=== PATIENT | female | born 1995 | race Caucasian/White ===

== ENCOUNTER → 2020-01-19 15:30 | Outpatient (BNVA) | payer SELFPAY | PROVIDERS: Visit Provider Nurse Practitioner Family | DX: R53.83 Other fatigue (principal); R63.5 Abnormal weight gain | CPT/HCPCS: 80048; 84443 ==

== ENCOUNTER 2020-06-03 18:11 | Emergency (ER) | payer MEDICAID, SELFPAY ==
[2020-06-03 18:25] VITALS: BP 125/63; PULSE 79; RESP 18; TEMP 36.8; O2SAT 100; BMI 29.2
[2020-06-03 19:37] LABS: Basophils % 0.4 %; Eosinophils # 0.1 10^3/uL (0.0-0.8); Eosinophils % 0.8 %; Hematocrit 40.8 % (37.0-47.0); Hemoglobin 13.7 g/dL (11.5-15.3); Lymphocytes # 2.4 10^3/uL (0.8-4.8); Mean Corpuscular HGB Conc 33.6 g/dL (30.0-36.0); Mean Corpuscular Hemoglobin 31.6 pg (28.0-34.0); Mean Platelet Volume 9.5 fL (7.4-10.4); Monocytes # 0.4 10^3/uL (0.2-0.9); Monocytes % 5.3 %; Neutrophils # 4.54 10^3/uL (1.8-7.7); Neutrophils % 61.4 %; Nucleated Red Blood Cells % 0 %; Platelet Count 217 10^3/cmm (130-400); Red Blood Count 4.34 10^6/uL (4.1-5.3); Red Cell Distribution Width 11.6 % (12.1-15.1); White Blood Count 7.4 10^3/uL (4.0-10.0)
[2020-06-03 19:48] LABS: HCG, Serum Qual Positive (Negative)
[2020-06-03 19:54] LABS: Alanine Aminotransferase 28 U/L (0-33); Albumin Level 4.4 g/dL (3.5-5.2); Alkaline Phosphatase 67 IU/L (35-105); Anion Gap 13.9 (5-19); Aspartate Amino Transferase 26 U/L (0-32); Blood Urea Nitrogen 8 mg/dL (6-20); Calcium 9.8 mg/dL (8.5-10.5); Carbon Dioxide 25 mmol/L (22-29); Chloride 103 mmol/L (98-107); Globulin 3.2 g/dL (1.3-4.6); Glucose 89 mg/dL (65-115); Osmolality Calculated 281 mOsm/kg (285-295); Potassium 3.9 mmol/L (3.5-5.1); Sodium 138 mmol/L (136-145); Total Bilirubin 0.3 mg/dL (0.15-1.2); Total Protein 7.6 g/dL (6.6-8.7)
--- NOTE | 2020-06-03 23:18 | W.ED.NAVMDI ---
HPI - Nausea/Vomiting/Diarrhea General: Chief complaint: Nausea/Vomiting/Diarrhea Stated complaint: got sick/doc x ray consultant said come in Time Seen by Provider: 06/03/20 23:00 History of Present Illness: HPI Narrative: Patient is in first trimester of and comes in with complaints of nausea and vomiting and abdominal discomfort. Patient appears mildly unwell. Patient appears in no acute distress. Associated nausea: Yes Associated symtoms: Reports nausea Review of Systems General: Reports: 10 or more systems reviewed and unremarkable except in HPI and below GI: Reports: nausea and vomiting PFS ED PFSH: Medical History (Updated 06/03/20 @ 23:41 by TODD Aguirre) Depression Surgical History (Updated 01/19/20 @ 15:10 by TODD Erazo) Hx of adenoidectomy Hx of tonsillectomy Family History (Updated 01/19/20 @ 15:12 by TODD Erazo) Father Family history of premature coronary artery disease Grandmother Family history of premature coronary artery disease Hypertension Mother Hypertension Denies family history of Psychiatric illness Suicide Bleeding disorder Lung disease Stroke Social History (Updated 01/19/20 @ 14:57 by Agueda Pope LPN) Smoking and tobacco status: never smoked Second hand smoke exposure: Yes Female Reproductive History: Date of last menstrual period: 01/23/20 Physical Exam Const: COMMON NORMALS: no acute distress and patient oriented x3 GENERAL APPEARANCE: cooperative HENMT: COMMON NORMALS: normocephalic, TM's normal bilaterally and Normal external nose present HEAD & SCALP: normal to inspection and normocephalic NOSE: Normal external nose present TYMPANIC MEMBRANE: TM's normal bilaterally MOUTH: Normal oral and palatal mucosa present THROAT: posterior oropharynx normal Eye: GENERAL EYE: appearance normal, both eyes and all related structures Neck/C-Spine: COMMON NORMALS: full ROM Lymph: LYMPHATIC: no lymphadenopathy noted Chest: COMMONS NORMALS: normal inspection of the chest Resp: COMMON NORMALS: normal respiratory effort EFFORT & INSPECTION: Yes able to speak in complete sentences Cardio: COMMON NORMALS: regular rate and regular rhythm RATE: regular rate RHYTHM: regular rhythm GI: COMMON NORMALS: Soft to palpation PALPATION: Yes Soft to palpation and Yes Tenderness to palpation present (GI) (mid epigastric) : COMMON NORMALS: Yes no CVA tenderness BLADDER/KIDNEY EXAM: Yes no CVA tenderness Back/Pelvis: COMMON NORMALS: no CVA tenderness and thoracic and lumbar spine normal to inspection Extremity: COMMON NORMALS: normal to inspection Neuro: COMMON NORMALS: patient oriented x3 and moves all extremities Psych: COMMON NORMALS: mental status grossly normal and cooperative Skin: COMMON NORMALS: no rashes or lesions noted GENERAL SKIN EXAM: no rashes or lesions noted Course Vital Signs: Vital signs: Vital Signs Temperature 98.2 F 06/03/20 18:25 Pulse Rate 79 06/03/20 18:25 Respiratory Rate 18 06/03/20 18:25 Blood Pressure 125/63 06/03/20 18:25 Pulse Oximetry 100 06/03/20 18:25 MDM - Nausea/Vomiting/Diarrhea MDM Narrative: Medical decision making narrative: Patient comes in today with complaints of nausea and vomiting and some midepigastric pain. Respirations were even lungs were clear to auscultation. Abdomen was soft with some midepigastric tenderness. Differential diagnosis includes but not limited to hyperemesis gravidarum, GERD, gallbladder disease. Laboratory values were normal. Urinalysis was clear. Suspect patient either has some mild related nausea and vomiting or GERD. Patient was treated in the emergency room with ondansetron and a dose of GI cocktail. Patient was released to home with ondansetron and recommended to follow-up with primary care. Patient reported understanding. Lab Data: Labs: Lab Results 06/03/20 06/03/20 06/03/20 Range/Units 19:24 19:24 19:24 WBC 7.4 (4.0-10.0) 10^3/ uL RBC 4.34 (4.1-5.3) 10^6/u L Hgb 13.7 (11.5-15.3) g/dL Hct 40.8 (37.0-47.0) % MCV 94.0 (81-99) fL MCH 31.6 (28.0-34.0) pg MCHC 33.6 (30.0-36.0) g/dL RDW 11.6 L (12.1-15.1) % Plt Count 217 (130-400) 10^3/c mm MPV 9.5 (7.4-10.4) fL Neut % (Auto) 61.4 % Lymph % (Auto) 32.0 % Sterling % (Auto) 5.3 % Eos % (Auto) 0.8 % Baso % (Auto) 0.4 % Neut # (Auto) 4.54 (1.8-7.7) 10^3/u L Lymph # (Auto) 2.4 (0.8-4.8) 10^3/u L Sterling # (Auto) 0.4 (0.2-0.9) 10^3/u L Eos # (Auto) 0.1 (0.0-0.8) 10^3/u L Baso # (Auto) 0.0 (0.0-0.1) 10^3/u L Nucleated RBC % (a uto) 0 % Nucleated RBCs # 0.0 /100WBC Sodium 138 (136-145) mmol/L Potassium 3.9 (3.5-5.1) mmol/L Chloride 103 (98-107) mmol/L Carbon Dioxide 25 (22-29) mmol/L Anion Gap 13.9 (5-19) BUN 8 (6-20) mg/dL Creatinine 0.7 (0.5-0.9) mg/dL GFR Calculation 102.0 (90-130) mL/min Glucose 89 (65-115) mg/dL Calculated Osmolal ity 281 L (285-295) mOsm/k g Calcium 9.8 (8.5-10.5) mg/dL Total Bilirubin 0.3 (0.15-1.2) mg/dL AST 26 (0-32) U/L ALT 28 (0-33) U/L Alkaline Phosphata se 67 (35-105) IU/L Total Protein 7.6 (6.6-8.7) g/dL Albumin 4.4 (3.5-5.2) g/dL Globulin 3.2 (1.3-4.6) g/dL HCG, Qual Positive H (Negative) Urine Color (Yellow) Urine Appearance (CLEAR) Urine pH (5-7) Ur Specific Gravit y (1.005-1.030) Urine Protein (Negative) Urine Glucose (UA) (Normal) Urine Ketones (Negative) Urine Blood (Negative) Urine Nitrate (Negative) Urine Bilirubin (NEGATIVE) Urine Urobilinogen (Negative) mg/dL Ur Leukocyte Shawna ase (Negative) 06/03/20 06/03/20 Range/Units 23:16 23:16 WBC (4.0-10.0) 10^3/ uL RBC (4.1-5.3) 10^6/u L Hgb (11.5-15.3) g/dL Hct (37.0-47.0) % MCV (81-99) fL MCH (28.0-34.0) pg MCHC (30.0-36.0) g/dL RDW (12.1-15.1) % Plt Count (130-400) 10^3/c mm MPV (7.4-10.4) fL Neut % (Auto) % Lymph % (Auto) % Sterling % (Auto) % Eos % (Auto) % Baso % (Auto) % Neut # (Auto) (1.8-7.7) 10^3/u L Lymph # (Auto) (0.8-4.8) 10^3/u L Sterling # (Auto) (0.2-0.9) 10^3/u L Eos # (Auto) (0.0-0.8) 10^3/u L Baso # (Auto) (0.0-0.1) 10^3/u L Nucleated RBC % (a uto) % Nucleated RBCs # /100WBC Sodium (136-145) mmol/L Potassium (3.5-5.1) mmol/L Chloride (98-107) mmol/L Carbon Dioxide (22-29) mmol/L Anion Gap (5-19) BUN (6-20) mg/dL Creatinine (0.5-0.9) mg/dL GFR Calculation (90-130) mL/min Glucose (65-115) mg/dL Calculated Osmolal ity (285-295) mOsm/k g Calcium (8.5-10.5) mg/dL Total Bilirubin (0.15-1.2) mg/dL AST (0-32) U/L ALT (0-33) U/L Alkaline Phosphata se (35-105) IU/L Total Protein (6.6-8.7) g/dL Albumin (3.5-5.2) g/dL Globulin (1.3-4.6) g/dL HCG, Qual Positive H (Negative) Urine Color Yellow (Yellow) Urine Appearance Clear (CLEAR) Urine pH 5 (5-7) Ur Specific Gravit y 1.010 (1.005-1.030) Urine Protein Neg (Negative) Urine Glucose (UA) Norm (Normal) Urine Ketones Negative (Negative) Urine Blood Neg (Negative) Urine Nitrate Negative (Negative) Urine Bilirubin Neg (NEGATIVE) Urine Urobilinogen Norm (Negative) mg/dL Ur Leukocyte Shawna ase Negative (Negative) Discharge Plan Discharge Patient Disposition: Home Clinical Impression: Nausea & vomiting Qualifiers: Vomiting type: unspecified Vomiting Intractability: non-intractable Qualified Code(s): R11.2 - Nausea with vomiting, unspecified Qualifiers: Weeks of gestation: less than 8 weeks Qualified Code(s): Z3A.01 - Less than 8 weeks gestation of Condition: Stable Prescriptions: New ondansetron HCl 4 mg tablet 4 mg PO Q8H PRN (Reason: nausea and vomiting) Qty: 10 RF: 0 No Action fluoxetine [Prozac] 10 mg capsule 10 mg PO DAILY Qty: 30 RF: 1 Discharge Diet: Advance as tolerated Discharge Activity: Resume usual activity Patient Instructions: Hyperemesis Gravidarum (ED) Activity Restrictions/Additional Instructions: Drink plenty of fluids. Healthy diet and activity. Start with small meals and increase back to normal. Follow-up with primary care for further evaluation and treatment. Return to the emergency department for high fever or new concerns. Coding Level of Care Code ED Regulatory Agency Director for Ambrosio Fwara Exam Comprehensive
[2020-06-03 23:24] LABS: Add Urine Microscopic? NO
[2020-06-03 23:27] LABS: Bilirubin Urine Neg (NEGATIVE); Blood Urine Neg (Negative); Glucose Urine UA Norm (Normal); HCG Qualitative Urine. Positive (Negative); Ketones Urine Negative (Negative); Leukocyte Esterase Urine Negative (Negative); Nitrate Urine Negative (Negative); Protein Urine Neg (Negative); Urine Appearance Clear (CLEAR); Urine Color Yellow (Yellow); Urobilinogen Urine Norm (Negative); pH Urine 5 (5-7)
[2020-06-03] MEDS: acetaminophen 500 mg Tablet PO (23:37)
[2020-06-04] MEDS: ondansetron 4 MG Tablet PO (00:12)
[2020-06-04] MEDS: lidocaine 2% viscous 15 ML, aluminum-mag hydrox-simethicon 30 ML, sucralfate oral liq 1 GM PO (00:12)
[2020-06-04 00:58] VITALS: BP 126/86; PULSE 66; RESP 14; TEMP 36.7; O2SAT 99
== END 2020-06-04 01:02 | disposition home or self-care (01) ==
PROVIDERS: Emergency Medicine; Emergency Provider Nurse Practitioner Family
DX: O21.8 Other vomiting complicating pregnancy (principal); Z3A.01 Less than 8 weeks gestation of pregnancy; Z77.22 Contact with and (suspected) exposure to environmental tobacco smoke (acute) (chronic)
CPT/HCPCS: 12345; 36415; 80053; 81003; 81025; 84703; 85025; 99281; 99283; Q0162

== ENCOUNTER → 2020-07-12 09:48 | Outpatient (BNVA) | payer MEDICAID, SELFPAY | PROVIDERS: Visit Provider Nurse Practitioner Women's Health | DX: Z34.90 Encounter for supervision of normal pregnancy, unspecified, unspecified trimester (principal) | CPT/HCPCS: 81000 ==

== ENCOUNTER → 2020-07-19 13:59 | Outpatient (BNVA) | payer MEDICAID, SELFPAY | PROVIDERS: Visit Provider Obstetrics & Gynecology | DX: O09.892 Supervision of other high risk pregnancies, second trimester (principal); O34.211 Maternal care for low transverse scar from previous cesarean delivery; F32.9 Major depressive disorder, single episode, unspecified; O99.342 Other mental disorders complicating pregnancy, second trimester; Z3A.14 14 weeks gestation of pregnancy | CPT/HCPCS: 80053; 80307; 81000; 85027; 86592; 86762; 86803; 86850; 86900; 87340; 87806 ==

== ENCOUNTER → 2020-07-26 14:12 | Outpatient (BNVA) | payer MEDICAID, SELFPAY | PROVIDERS: Visit Provider Obstetrics & Gynecology | DX: Z34.90 Encounter for supervision of normal pregnancy, unspecified, unspecified trimester (principal) | CPT/HCPCS: 81000; 87491; 87591 ==

== ENCOUNTER → 2020-08-09 14:19 | Outpatient (BNVA) | payer MEDICAID, SELFPAY | PROVIDERS: Visit Provider Nurse Practitioner Women's Health | DX: Z34.90 Encounter for supervision of normal pregnancy, unspecified, unspecified trimester (principal) | CPT/HCPCS: 81000 ==

== ENCOUNTER → 2020-09-07 09:24 | Outpatient (BNVA) | payer MEDICAID, SELFPAY | PROVIDERS: Visit Provider Obstetrics & Gynecology | DX: O98.819 Other maternal infectious and parasitic diseases complicating pregnancy, unspecified trimester (principal); A74.9 Chlamydial infection, unspecified; Z3A.00 Weeks of gestation of pregnancy not specified | CPT/HCPCS: 81000 ==

== ENCOUNTER → 2020-09-19 15:05 | Outpatient (BNVA) | payer MEDICAID, SELFPAY | PROVIDERS: Visit Provider Obstetrics & Gynecology | DX: Z20.828 Contact with and (suspected) exposure to other viral communicable diseases (principal) | CPT/HCPCS: 87635 ==

== ENCOUNTER → 2020-09-25 10:52 | Outpatient (BNVA) | payer MEDICAID, SELFPAY | PROVIDERS: Visit Provider Obstetrics & Gynecology | DX: O98.812 Other maternal infectious and parasitic diseases complicating pregnancy, second trimester (principal); A74.9 Chlamydial infection, unspecified; O09.892 Supervision of other high risk pregnancies, second trimester; O99.342 Other mental disorders complicating pregnancy, second trimester; F32.9 Major depressive disorder, single episode, unspecified; Z3A.24 24 weeks gestation of pregnancy | CPT/HCPCS: 81000; 87491; 87591 ==

== ENCOUNTER → 2020-10-25 13:35 | Outpatient (BNVA) | payer BC, MEDICAID, SELFPAY | PROVIDERS: Visit Provider Obstetrics & Gynecology | DX: O09.899 Supervision of other high risk pregnancies, unspecified trimester (principal) | CPT/HCPCS: 81000; 82950; 85025 ==

== ENCOUNTER → 2020-11-07 10:22 | Outpatient (BNVA) | payer BC, MEDICAID, SELFPAY | PROVIDERS: Visit Provider Obstetrics & Gynecology | DX: O98.812 Other maternal infectious and parasitic diseases complicating pregnancy, second trimester (principal); A74.9 Chlamydial infection, unspecified; Z3A.00 Weeks of gestation of pregnancy not specified | CPT/HCPCS: 81000; 87491; 87591 ==

== ENCOUNTER → 2020-11-21 10:28 | Outpatient (BNVA) | payer BC, MEDICAID, SELFPAY | PROVIDERS: Visit Provider Obstetrics & Gynecology | DX: O98.812 Other maternal infectious and parasitic diseases complicating pregnancy, second trimester (principal); A74.9 Chlamydial infection, unspecified | CPT/HCPCS: 81000 ==

== ENCOUNTER → 2020-12-12 10:04 | Outpatient (BNVA) | payer BC, MEDICAID, SELFPAY | PROVIDERS: Visit Provider Obstetrics & Gynecology | DX: Z34.90 Encounter for supervision of normal pregnancy, unspecified, unspecified trimester (principal) | CPT/HCPCS: 81000 ==

== ENCOUNTER → 2020-12-19 09:35 | Outpatient (BNVA) | payer BC, MEDICAID, SELFPAY | PROVIDERS: Visit Provider Obstetrics & Gynecology | DX: O09.899 Supervision of other high risk pregnancies, unspecified trimester (principal); A74.9 Chlamydial infection, unspecified; O98.812 Other maternal infectious and parasitic diseases complicating pregnancy, second trimester; O34.219 Maternal care for unspecified type scar from previous cesarean delivery; Z3A.00 Weeks of gestation of pregnancy not specified | CPT/HCPCS: 81000; 87081; 87491 ==

== ENCOUNTER 2020-12-20 17:24 | Outpatient (CLI) | payer BC, MEDICAID, SELFPAY ==
[2020-12-20 17:24] VITALS: RESP 20; TEMP 36.9
[2020-12-20 17:35] VITALS: BP 141/82; PULSE 109
[2020-12-20 17:57] VITALS: BMI 38.6
[2020-12-20 19:17] VITALS: BP 134/72; PULSE 100
[2020-12-20 19:24] VITALS: RESP 18; TEMP 36.8
[2020-12-20 19:45] VITALS: BP 134/72; PULSE 100
== END 2020-12-20 19:45 | disposition home or self-care (01) ==
LOC: OPOB 17:25 → OBGYN 17:27
PROVIDERS: Visit Provider Obstetrics & Gynecology
DX: O26.899 Other specified pregnancy related conditions, unspecified trimester (principal); Z3A.00 Weeks of gestation of pregnancy not specified; R10.9 Unspecified abdominal pain
CPT/HCPCS: 59025; 99211

== ENCOUNTER → 2020-12-26 08:43 | Outpatient (BNVA) | payer BC, MEDICAID, SELFPAY | PROVIDERS: Visit Provider Obstetrics & Gynecology | DX: O98.812 Other maternal infectious and parasitic diseases complicating pregnancy, second trimester (principal); A74.9 Chlamydial infection, unspecified; Z3A.00 Weeks of gestation of pregnancy not specified | CPT/HCPCS: 81000 ==

== ENCOUNTER → 2021-01-02 08:48 | Outpatient (BNVA) | payer BC, MEDICAID, SELFPAY | PROVIDERS: Visit Provider Obstetrics & Gynecology | DX: O98.812 Other maternal infectious and parasitic diseases complicating pregnancy, second trimester (principal); A74.9 Chlamydial infection, unspecified; O34.219 Maternal care for unspecified type scar from previous cesarean delivery; O09.899 Supervision of other high risk pregnancies, unspecified trimester; Z3A.00 Weeks of gestation of pregnancy not specified | CPT/HCPCS: 81000 ==

== ENCOUNTER → 2021-01-05 08:41 | Outpatient (BNVA) | payer BC, MEDICAID, SELFPAY | PROVIDERS: Visit Provider Obstetrics & Gynecology | DX: O09.899 Supervision of other high risk pregnancies, unspecified trimester (principal); O34.219 Maternal care for unspecified type scar from previous cesarean delivery; Z20.822 Contact with and (suspected) exposure to COVID-19 | CPT/HCPCS: 87635 ==

== ENCOUNTER → 2021-01-09 08:55 | Outpatient (BNVA) | payer BC, MEDICAID, SELFPAY | PROVIDERS: Visit Provider Obstetrics & Gynecology | DX: O98.812 Other maternal infectious and parasitic diseases complicating pregnancy, second trimester (principal); A74.9 Chlamydial infection, unspecified; O34.219 Maternal care for unspecified type scar from previous cesarean delivery; O09.899 Supervision of other high risk pregnancies, unspecified trimester | CPT/HCPCS: 81000 ==

== ENCOUNTER 2021-01-11 06:34 | Inpatient (IN) | payer BC, MEDICAID, SELFPAY ==
--- NOTE | 2020-11-23 10:35 | ANES.PREANE2 ---
Pre-Anesthetic Assessment Pre-Anesthetic Assessment: Height/Weight: Height 1.57 m Preop Diagnosis: IUP Proposed Procedure: Operation Date: 01/11/21 08:20 Proposed Procedures p Section Repeat 25237 O09.899 O34.219(Not Applicable) - Deepti Granados MD Familial anesthetic complications: Epidural went into blood vein - patient had ringing in ears and metallic taste in mouth Social: Social History: No alcohol and No tobacco Exam: Pre-Anes Outpt Exam: alert, oriented x 3, clear to auscultation bilaterally and regular rate & rhythm Airway: Cervical ROM: WNL MP: 1 Dentition: Full GI: GI: GERD Neuropsych: Comments: baby is SGA (small for gestational age) Anesthetic Plan: ASA status: 2 Anesthesia: Regional (specify below) Other: spinal Risk of > 500 ml blood loss (7ml/kg in children): No PFSH Anesthesia PFSH: Medical History Depression Diagnosed when she was 8-year-old. Not currently on any medication. Last used medication in 2014. Does not see a therapist. No pertinent past medical history Denies diabetes, asthma, hypertension, seizures, DVT/PE PMD: Brooklynn Sainz Surgical History History of section 2013--primary low transverse delivery 2014--repeat low transverse delivery History of cystoscopy 2014 cystoscopy with right retrograde ureteropyelogram and right ureteral stone extraction x2 performed by Dr. Sheets Hx of tonsillectomy And adenoidectomy at the age of 6 Family History Father Hypercholesteremia Hypertension Heart disease Hyperlipidemia Grandmother Heart disease maternal Hypercholesteremia maternal Hyperlipidemia maternal Hypertension maternal Mother Hypercholesteremia Hyperlipidemia Sister Thyroid disease Denies family history of Colon cancer Ovarian cancer Diabetes Breast cancer Bleeding disorder Uterine cancer Stroke Social History Smoking and tobacco status: never smoked Alcohol intake: never Additional social history: - Tobacco use: Never Alcohol use: occasional prior to Drug use: Never Female Reproductive History: Date of last menstrual period: 01/23/20 Data Anesthesia Cardiac Studies: No Data to Display
[2021-01-11] VITALS (38 sets, daily range): BP systolic 91–138; BP diastolic 45–78; PULSE 61–123; RESP 16–18; TEMP 36.6–37.1; O2SAT 96–100; BMI 38.2
--- NOTE | 2021-01-11 07:18 | W.PM.OPSUD ---
Surgery/Procedure H&P Update DATE OF PROCEDURE: January 11, 2021 DATE H&P PERFORMED: 01/09/21 H&P UPDATE INFORMATION: I have reviewed H&P completed within last 30 days, I have examined patient prior to procedure, No changes to prior documentation and H&P is in [facility] date indicated PREOP DIAGNOSIS: IUP PLANNED PROCEDURE: Operation Date: 01/11/21 08:00 Proposed Procedures p Section Repeat 54201 O09.899 O34.219(Not Applicable) - Deepti Granados MD
[2021-01-11 07:20] LABS: Basophils # 0.1 10^3/uL (0.0-0.1); Basophils % 0.5 %; Eosinophils # 0.1 10^3/uL (0.0-0.8); Eosinophils % 0.7 %; Hemoglobin 12.3 g/dL (11.5-15.3); Lymphocytes # 2.6 10^3/uL (0.8-4.8); Lymphocytes % 26.5 %; Mean Corpuscular HGB Conc 34.2 g/dL (30.0-36.0); Mean Corpuscular Hemoglobin 31.8 pg (28.0-34.0); Monocytes # 0.8 10^3/uL (0.2-0.9); Monocytes % 8.2 %; Neutrophils # 6.25 10^3/uL (1.8-7.7); Neutrophils % 62.9 %; Nucleated Red Blood Cells % 0 %; Platelet Count 194 10^3/cmm (130-400); Red Blood Count 3.87 10^6/uL (4.1-5.3); White Blood Count 9.9 10^3/uL (4.0-10.0)
[2021-01-11] MEDS: ondansetron 2 mg/ML SDV 2 mL 4 MG IVP (07:41)
--- NOTE | 2021-01-11 07:45 | ANES.PREANE2 ---
Pre-Anesthetic Assessment Pre-Anesthetic Assessment: Height/Weight: Height 1.57 m Pulse Resp BP Pulse Ox 87 18 120/64 100 01/11/21 07:59 01/11/21 06:47 01/11/21 07:59 01/11/21 07:54 Preop Diagnosis: IUP Proposed Procedure: Operation Date: 01/11/21 08:00 Proposed Procedures p Section Repeat 61085 O09.899 O34.219(Not Applicable) - Deepti Granados MD Was Beta Liliana taken within 24 hours: N/A Was Clonidine taken within 24 hours: N/A Social: Social History: No alcohol and No tobacco Exam: Pre-Anes Outpt Exam: alert, oriented x 3, clear to auscultation bilaterally and regular rate & rhythm Airway: Submandibular: WNL Cervical ROM: WNL MP: 2 History/ROS: No significant history except as noted Pulmonary: Comments: occasional bronchitis CV/HEM: CV/HEM: Murmur : Comments: kidney stones Hepatic: Hepatic: None reported GI: GI: None reported Metabolic: Metabolic: None reported Musc/skel: Musc/skel: None reported Neuropsych: Neuropsych: Anxiety Anesthetic Plan: ASA status: 1 Anesthesia: Anesthesia Evaluation and Regional (specify below) Risk of > 500 ml blood loss (7ml/kg in children): Yes, adequate IV access and fluids planned PFSH Anesthesia PFSH: Medical History Depression Diagnosed when she was 8-year-old. Not currently on any medication. Last used medication in 2014. Does not see a therapist. No pertinent past medical history Denies diabetes, asthma, hypertension, seizures, DVT/PE PMD: Brooklynn Sainz Surgical History History of section 2013--primary low transverse delivery 2014--repeat low transverse delivery History of cystoscopy 2014 cystoscopy with right retrograde ureteropyelogram and right ureteral stone extraction x2 performed by Dr. Sheets Hx of tonsillectomy And adenoidectomy at the age of 6 Family History Father Hypercholesteremia Hypertension Heart disease Hyperlipidemia Grandmother Heart disease maternal Hypercholesteremia maternal Hyperlipidemia maternal Hypertension maternal Mother Hypercholesteremia Hyperlipidemia Sister Thyroid disease Denies family history of Colon cancer Ovarian cancer Diabetes Breast cancer Bleeding disorder Uterine cancer Stroke Social History Smoking and tobacco status: never smoked Alcohol intake: never Additional social history: - Tobacco use: Never Alcohol use: occasional prior to Drug use: Never Female Reproductive History: Date of last menstrual period: 01/23/20 Data Anesthesia CBC & Chem 7: 01/11/21 07:05 Other Labs: Laboratory Results - last 48 hr 01/11/21 07:05 WBC 9.9 RBC 3.87 L Hgb 12.3 Hct 36.0 L MCV 93.0 MCH 31.8 MCHC 34.2 RDW 12.0 L Plt Count 194 MPV 9.0 Neut % (Auto) 62.9 Lymph % (Auto) 26.5 [place] % (Auto) 8.2 Eos % (Auto) 0.7 Baso % (Auto) 0.5 Neut # (Auto) 6.25 Lymph # (Auto) 2.6 [place] # (Auto) 0.8 Eos # (Auto) 0.1 Baso # (Auto) 0.1 Nucleated RBC % (auto) 0 Nucleated RBCs # 0.0 Cardiac Studies: No Data to Display
[2021-01-11] MEDS: citric acid-sodium citrate 30 mL UDC PO (07:56)
[2021-01-11] MEDS: metoclopramide 5 mg/mL SDV 2 mL 10 MG IVP (07:56)
[2021-01-11] MEDS: famotidine 20 mg/2 mL INJ IVP (07:56)
--- NOTE | 2021-01-11 09:49 | PM.OP ---
Operative Report Date of procedure: January 11, 2021 OPERATIVE REPORT Date of surgery: 01/11/2021 Date of dictation:01/11/2021 Preoperative diagnosis: 25-year-old 4 para 2-0-1-2 at 39 weeks and 3 days, previous delivery x2--desires repeat , obesity with a BMI of 38, depression-not on medication, Chlamydia status post treatment and negative testing-baby girl, Claudia awaiting 6 pounds 1 ounce, 18 inches long, Apgars 9/ Postoperative diagnosis/findings: Normal tubes and ovaries bilaterally, dense adhesions between bladder and uterus, filmy omental adhesions between omentum and anterior abdominal wall, baby girl Lucrecia weighing 6 pounds 1 ounce, 18 inches long, Apgars 9/10, clear amniotic fluid, nuchal cord x1 Procedure done: Repeat low transverse delivery via Pfannenstiel incision Specimens removed/disposition of specimens: placenta and cord which were discarded Surgeon: Dr. Deepti Gustafson assistant customer service manager: Tyrone Erazo. Anesthesia: spinal anesthesia Estimated blood loss:700 ml Intravenous fluids: 1000ml of LR Urine output: 100 ml of urine Medications: As per anesthesia records. Complications: None, patient was left to recover in a stable condition. PROCEDURE: After consent was obtained, patient was taken to the operating room where spinal anesthesia was placed without difficulty. She was placed supine on the table with a left lateral wedge. Nagel catheter and SCDs were placed. The abdomen was shaved and then prepped with duo prep. She was draped in a sterile fashion. After checking adequacy of anesthesia, a Pfannenstiel incision was made 2 cm above the pubic symphysis--over her old incision. The incision was carried down to the fascia using the Bovie. There was pretty dense scar tissue in the subcutaneous layer. The fascia was nicked in the midline and the fascial incision was extended laterally using curved Mayos. The inferior aspect of the fascia was grasped with gavino clamps and dissected off from the underlying rectus muscle. This was repeated again superiorly without any difficulty. The rectus muscle was sharply as they were adherent together with scarring. A farrah was made in the peritoneum and the peritoneal incision was carried inferiorly taking care to proceed in layers so as to avoid the bladder. The peritoneal incision was extended superiorly as well. No adhesions were noted from the uterus to the anterior abdominal wall. There were filmy omental adhesions to the anterior abdominal wall that was taken down with the Bovie. Good hemostasis was noted. The uterus was noted to be rotated to the right. The bladder peritoneum was grasped with smooth forceps a bladder flap was created. There were dense adhesions of the bladder onto the uterus and care was taken to avoid any damage to the bladder. The bladder blade was replaced thus protecting the bladder. A LOW TRANSVERSE UTERINE INCISION was made with a scalpel till the amniotic membrane was reached. The uterine incision was then extended laterally using bandage scissors. Amniotomy was done with Allis clamps and clear amniotic fluid was drained. The head of the baby was brought up to the level of the incision and delivered with fundal pressure. The remainder of body followed without any difficulty. The nose and mouth were suctioned, the umbilical cord was clamped and cut and the baby was handed off to the waiting journeyman electrician pv installer, Dr. Avalos. The placenta was delivered spontaneously with fundal massage. It was noted to be intact and was discarded. The interior of the uterus was cleaned of all clot and debris and was noted to be jackie well. The uterus was exteriorized. The uterine incision was closed with 0 Vicryl in a running interlocking manner. Good hemostasis and reapproximation was obtained. The abdomen was irrigated and the gutters were cleaned of clot and debris. Normal tubes and ovaries were noted bilaterally. The uterus was placed back into the abdomen and uterine incision was noted to be hemostatic. The peritoneum was closed with a 2-0 plain in a continuous stitch. The rectus muscle was reapproximated with 2-0 plain suture in a mattress stitch. Good hemostasis was noted in the rectus muscle layer. The fascia was inspected for any defects and none were found and the fascia was closed with 0 looped PDS in a continuous stitch. The subcutaneous plane was then irrigated and hemostasis was obtained using the Bovie. The subcutaneous plane was then reapproximated using 2-0 plain suture in a continuous manner. The skin was then closed with 4-0 Monocryl in a subcuticular fashion. Good reapproximation and hemostasis was noted. Steri-Strips were applied. The incision was dressed with Telfa ,ABD and paper tape. The fundus was noted to be firm at the end of the procedure and excess blood was expressed from the vagina. The patient was left to recover in a stable condition. Pre-op Diagnosis: IUP History History History 4 Term 2 Miscarriages/Ectopic 1 0 Living Children 2 Other History: 4 para 3013 CD x 3 SAB x 1 1--> 2013, male,(Adam) full Term; c- section, emergency, complicated by dropped HR, delivered by Dr. Baron 2--> 07/27/2015 male, (Glen) Full Term c section planned, no complications, dleivered by Dr. Gustafson 3--> 11/2019--early miscarriage at about 4 weeks 4--> 01/11/2021, female (Lucrecia) weighing 6 pounds 1 ounce, scheduled repeat delivery at 39 weeks and [address] Gustafson at [facility].
[2021-01-11] MEDS: ibuprofen 800 mg tablet PO ×3 (12:21→21:18)
[2021-01-11] MEDS: dextrose 5%-lactated ringers 1,000 ML 125 ML IV ×2 (12:24→21:17)
--- NOTE | 2021-01-11 13:33 | PC.NURSE ---
this speech writer called to verify that pt can receive 1 tablet PO of [place] 5/325mg related to pain after section this morning, after receiving Duramorph in spinal, orders received to put a pulse ox on pt and watch respiratory rate and to give 1 tablet PO of 5/325mg of [place].
[2021-01-11] MEDS: HYDROcodone-acetaminophen 5-325 mg Tablet PO ×3 (13:43→23:01)
[2021-01-11] MEDS: docusate sodium 100 mg Capsule PO (18:23)
[2021-01-11] MEDS: HYDROmorphone 1 mg/mL INJ 1 mL 1.5 MG IVP (20:17)
--- NOTE | 2021-01-11 20:52 | ANE.PACU2 ---
Inpatient post-anesthesia follow up: Airway intact: Yes Vital signs: Temperature 98.1 F Pulse Rate 94 Respiratory Rate 17 Blood Pressure 115/67 Pulse Oximetry 98 Oxygen Delivery Me thod Room Air Oxygen Flow Rate Fraction of Inspir ed Oxygen Hydration adequate: Yes Nausea and vomiting: No Pain level: 2 Mental status: Baseline
[2021-01-11 21:32] LABS: Hematocrit 30.5 % (37.0-47.0); Hemoglobin 10.3 g/dL (11.5-15.3); Mean Corpuscular HGB Conc 33.8 g/dL (30.0-36.0); Mean Corpuscular Hemoglobin 31.7 pg (28.0-34.0); Mean Corpuscular Volume 93.8 fL (81-99); Mean Platelet Volume 9.1 fL (7.4-10.4); Platelet Count 183 10^3/cmm (130-400); Red Blood Count 3.25 10^6/uL (4.1-5.3); Red Cell Distribution Width 11.9 % (12.1-15.1); White Blood Count 13.7 10^3/uL (4.0-10.0)
--- NOTE | 2021-01-11 22:10 | PC.NURSE ---
AT 2145, PATIENT AMBULATED IN ROOM FOR TEN MINUTES. COOK HELPER VEGETABLE PROVIDED STANDBY ASSISTANCE. PATIENT TOLERATED AMBULATION WELL WITH NO COMPLAINTS.
--- NOTE | 2021-01-12 00:22 | PC.NURSE ---
AT 0020, PATIENT REPORTED TO SETTER COLD ROLLING MACHINE THE RETURN OF FLATUS.
[2021-01-12 03:25] VITALS: BP 104/59; PULSE 108; RESP 16; TEMP 36.8; O2SAT 96
[2021-01-12] MEDS: HYDROcodone-acetaminophen 5-325 mg Tablet PO ×4 (03:34→21:04)
[2021-01-12] MEDS: HYDROcodone-acetaminophen 5-325 mg Tablet 2 TAB PO (06:59)
--- NOTE | 2021-01-12 06:59 | PM.PN ---
Subjective Subjective: Interval history: SUBJECTIVE: Ms. Batista is doing okay today. Still has pain but it is well controlled with p.o. pain medication. She denies shortness of breath, chest pain, nausea, vomiting and reports no depressive symptoms. She is just tired. She states that breast-feeding is a little harder today and she thinks that some of it is because she is tired. She has not voided since removal of the catheter and states that she has passed flatus and is tolerating diet well without nausea or vomiting. OBJECTIVE/PHYSICAL EXAM: Gen.: No acute distress Heart: S1-S2 heard, regular rate and rhythm Lungs: Clear to auscultation bilaterally Abdomen: Soft, fundus firm below umbilicus, tenderness around incision. Incision: Dressing in place-clean dry Legs: No calf tenderness, +1 bilateral pitting pedal edema. ASSESSMENT AND PLAN: 25-year-old 4 para 3-0-1-3 status post repeat delivery, postoperative day #1 -Continue routine postoperative [id number] voiding after removal of catheter -Hemoglobin and vital signs stable-okay to DC IV after 24 hours from surgery -Patient encouraged to ambulate well today -SCDs on while patient is resting unless she ambulates well -Anticipate discharge home in the next 1 to 2 days to recover from -Continue p.o. pain medication Vitals/I&O/Wt Last Vital Signs Temp 98.3 F 01/12/21 03:25 Pulse 108 H 01/12/21 03:25 Resp 16 01/12/21 03:25 BP 104/59 01/12/21 03:25 Pulse Ox 96 01/12/21 03:25 01/11/21 01/11/21 01/12/21 14:59 22:59 06:59 Intake Total 1050 / 1050 1000 / 2050 745 / 2795 Output Total 1150 / 1150 1200 / 2350 675 / 3025 Balance -100 / -100 -200 / -300 70 / -230 Weight last 48 hrs Weight 209 lb Physical Exam Urinary Catheter Management^: Nagel: Cath Placed During This Visit: yes, but has since been removed by the nurse Reason for Continuing Indwelling Catheter: Accurate Measurement of Urinary Output in Critically Ill Patients Urinary Catheter Date of Insertion: 01/11/21 Urinary Catheter Time of Insertion: 08:15 Date Urinary Catheter Removed: 01/12/21 Time Urinary Catheter Discontinued: 03:20 Data : 01/11/21 21:25 Attestations Medical Necessity Statement*: Patient needs to stay in the hospital for the next 1-2 midnights to recover from delivery Coding Level of Care Code Acute Pathology Laboratory Director for Ambrosio Salinas
--- NOTE | 2021-01-12 07:01 | PC.NURSE ---
AT 0655 DR JANG AT BEDSIDE, GAVE VERBAL ORDER TO LET PATIENT HAVE HYDROCODONE NOW. MATERIAL INSPECTOR EXPLAINED HYDROCODONE HAD BEEN GIVEN 3.5 HOURS BEFORE; DR JANG STATED TO OVERRIDE PREVIOUS ORDER AND GIVE HYDROCODONE NOW.
--- NOTE | 2021-01-12 10:21 | PC.NURSE ---
Nurse attempted to give patient AM medications and patient requested to take them after feeding baby. Nurse told patient to push call button when done feeding.
[2021-01-12] MEDS: docusate sodium 100 mg Capsule PO ×2 (10:45→20:08)
[2021-01-12] MEDS: prenatal vitamin Capsule 1 CAP PO (10:45)
[2021-01-12] MEDS: ibuprofen 800 mg tablet PO ×3 (10:45→20:08)
[2021-01-12] MEDS: ferrous sulfate EC 325 mg Tablet PO (10:46)
[2021-01-12 11:28] VITALS: BP 105/66; PULSE 98; RESP 18; TEMP 36.9; O2SAT 97
[2021-01-12 18:11] VITALS: BP 118/69; PULSE 98; RESP 16; TEMP 36.8; O2SAT 98
[2021-01-12 22:23] VITALS: BP 123/76; PULSE 105; RESP 16; TEMP 36.6; O2SAT 99
[2021-01-13] MEDS: HYDROcodone-acetaminophen 5-325 mg Tablet PO ×3 (04:11→12:57)
[2021-01-13 06:00] VITALS: BP 94/50; PULSE 98; RESP 16; TEMP 36.7; O2SAT 99
[2021-01-13] MEDS: prenatal vitamin Capsule 1 CAP PO (09:55)
[2021-01-13] MEDS: docusate sodium 100 mg Capsule PO (09:55)
[2021-01-13] MEDS: ibuprofen 800 mg tablet PO (09:55)
--- NOTE | 2021-01-13 12:12 | PM.OBGYDC ---
Discharge Providers INDUSTRIAL GAS FITTER HELPER Date of Admission: 01/11/21 06:34 Date of Discharge: 01/13/21 Attending Provider at Admission: Deepti Granados MD Attending Provider at Discharge: Dave Arellano MD Primary INDUSTRIAL GAS FITTER HELPER: Deepti Granados MD Diagnoses at Discharge Discharge Diagnosis (1) Previous delivery affecting : Status: Acute Reason for Visit Reason for Visit: due date [id number] Hospital Course Hospital Course Patient is a 25-year-old female 4, para 2-0-1-2 with an LMP of 07/13/2020 and an EDC of 01/15/2021 based on 13-week ultrasound, which placed her at 39-3/7 weeks gestation. Her care has been mainly provided by Dr. Gustafson. Patient presented for a scheduled repeat section on 01/11/2021. A repeat low transverse section was performed with the delivery of a viable female infant weighing 6 lbs 1 oz. Mother and both did well following delivery. Day 1 Patient overall was doing well. She was reporting having pain, but this was controlled with medications. She was denying lightheadedness or dizziness, shortness of breath, chest pains, nausea or vomiting. She was tolerating a regular diet. She was afebrile with stable vital signs. Her activity was increased during the day. Day 2 Patient reported doing well. She states that her pain is being controlled but she has been having to take the pain medication about every 4 hours on a scheduled basis. She reports tolerating a regular diet without nausea or vomiting. She denied lightheadedness or dizziness with ambulation. She denies shortness of breath or chest pains. She denied problems with urination. She stated that her bleeding was slowing. She reported passing flatus, but still has not had a bowel movement. Physical exam: See below Plan With the patient requiring 2 of the 5 mg Cumming's every 4 hours, I will be switching her to the 7.5 mg Cumming with the plan that she should only need to take them about every 6 hours. She is being discharged home. Discharge instructions were discussed with her. She was instructed to continue the vitamins at home. Use of [id number] stool softeners was discussed. Nothing in the vagina until after her 6 weeks checkup was discussed. She is to follow-up in the office with Dr. Gustafson at 2 and 6 weeks following surgery. Information Peripartum Data: Delivery Method: : 1: Gender: Female Additional [place] Information: Weight 6 pounds 1 ounce with a length of 18 inches Physical Exam Const: COMMON NORMALS: no acute distress, average body habitus, alert and well nourished GENERAL APPEARANCE: well developed ORIENTATION/CONSCIOUSNESS: Yes oriented to person, Yes oriented to place and Yes oriented to time Resp: COMMON NORMALS: normal respiratory effort and clear to auscultation bilaterally AUSCULTATION: clear to auscultation bilaterally Cardio: COMMON NORMALS: regular rate, regular rhythm, No gallops present (Cardio) and No rub (Cardio) RATE: regular rate RHYTHM: regular rhythm GI: COMMON NORMALS: Soft to palpation, No hepatosplenomegaly present and no masses (Except for uterus) INSPECTION: Yes incision (Well approximated with Steri-Strips present) AUSCULTATION: Yes normoactive bowel sounds PALPATION: Yes Soft to palpation, Yes Tenderness to palpation present (GI) (Tender in the lower abdomen), Yes No hepatosplenomegaly present and No Hernia present : EXTERNAL FEMALE EXAM: No Hernia present Extremity: COMMON NORMALS: no calf tenderness NARRATIVE EXTREMITY EXAM: 1+ lower extremity edema bilaterally Neuro: SENSORIUM/ORIENTATION: Yes alert, Yes oriented to person, Yes oriented to place and Yes oriented to time Psych: COMMON NORMALS: normal affect MOOD & AFFECT: Yes euthymic mood Urinary Catheter Management^: Nagel: Cath Placed During This Visit: yes, but has since been removed by the nurse Reason for Continuing Indwelling Catheter: Accurate Measurement of Urinary Output in Critically Ill Patients Urinary Catheter Date of Insertion: 01/11/21 Urinary Catheter Time of Insertion: 08:15 Date Urinary Catheter Removed: 01/12/21 Time Urinary Catheter Discontinued: 03:20 Discharge Data Data Completed and Pendin01/11/2021 at 07:05: WBC 9.9, Hgb 12.3, Hct 36.0, MCV 93.0, Plt 194,000 01/11/2021 at 21:25: WBC 13.7, Hgb 10.3, Hct 30.5, MCV 93.8, Plt 183,000 Vitals: Last Vital Signs Temp 98.1 F 01/13/21 06:00 Pulse 98 01/13/21 06:00 Resp 16 01/13/21 06:00 BP 94/50 01/13/21 06:00 Pulse Ox 99 01/13/21 06:00 Discharge Plan Discharge Patient Disposition: Home Condition: Stable Prescriptions: New hydrocodone-acetaminophen 7.5-325 mg tablet 1 - 2 tab PO Q6H PRN (Reason: pain) Qty: 28 RF: 0 ibuprofen 800 mg Tablet 800 mg PO TID PRN (Reason: pain) Qty: 40 RF: 0 Continued prenat.vits,sergio,xsd-pwnp-qijuk Tablet 1 tab PO DAILY RF: 0 acetaminophen [Tylenol] 325 mg capsule 325 mg PO QID PRNRF: 0 (DME) breast pump Device See Rx Instructions .ROUTE .MEDSUPPLY Qty: 1 RF: 0 Discharge Orders: Discharge Order (Routine); Ordered 01/13/21 Ordered By: Dave Arellano Referrals: Deepti Granados MD [Physician] - 01/29/21 10:00 am (2 week post-op appointment is scheduled for 01/29/21 at 10:00 am 6 week appointment is scheduled for 02/21/21 at 8:00 am) Discharge Diet: Regular Discharge Activity: Limit activity as instructed Patient Instructions: How to Hold and Breastfeed Your Baby (GEN), and Nipple Soreness (GEN), and Plugged Ducts (GEN), and Your Diet (GEN), Pre-eclampsia and Eclampsia (GEN), Bleeding (DC), OB WHC, OB Discharge Report, OB Food/Drug Interaction Guide, Abnormal Bleeding, Depression Activity Restrictions/Additional Instructions: May use awpa-esx-eaatagl Colace or MiraLAX as needed for constipation Discharge Attestations INDUSTRIAL GAS FITTER HELPER Time Spent in Discharge Care*: less than 30 min Coding Level of Care Code Acute Crm Analyst for Chg Fwd Diagnoses Previous delivery affecting O34.219
[2021-01-13 13:00] VITALS: BP 121/70; PULSE 108; RESP 17
[2021-01-13 13:50] VITALS: BP 121/70; PULSE 108; RESP 17
== END 2021-01-13 13:55 | disposition home or self-care (01) | DRG 788 ==
PROVIDERS: Admitting Provider Obstetrics & Gynecology; Visit Provider Obstetrics & Gynecology
PROC: 10D00Z1 Extraction of Products of Conception, Low, Open Approach (ICD-10-PCS; CPT 59514; principal; 2021-01-11 08:00)
DX: O34.211 Maternal care for low transverse scar from previous cesarean delivery (principal); N85.8 Other specified noninflammatory disorders of uterus; O69.81X0 Labor and delivery complicated by cord around neck, without compression, not applicable or unspecified; Z3A.39 39 weeks gestation of pregnancy; Z37.0 Single live birth
CPT/HCPCS: 36415; 51702; 59025; 59409; 85025; 85027; 98960; 99211; J0690; J1100; J1170; J2274; J2370; J2405; J2765; J3490; J7030

== ENCOUNTER → 2021-02-21 11:20 | Outpatient (BNVA) | payer BC, MEDICAID, SELFPAY | PROVIDERS: Visit Provider Obstetrics & Gynecology | DX: Z12.4 Encounter for screening for malignant neoplasm of cervix (principal) | CPT/HCPCS: 88175 ==

== ENCOUNTER 2022-03-27 14:46 | Emergency (ER) | payer OTHER, BC, SELFPAY ==
[2022-03-27 16:44] VITALS: BP 118/72; PULSE 79; RESP 13; TEMP 36.8; O2SAT 100; BMI 31.6
[2022-03-27 17:17] VITALS: BP 118/72; PULSE 79; RESP 13; O2SAT 100
--- NOTE | 2022-03-27 17:19 | W.ED.GENADLT ---
HPI - General Adult General: Chief complaint: Urogenital-Female Stated complaint: Sharp ABD Pains Time Seen by Provider: 03/27/22 17:09 History of Present Illness: Patient is a 26-year-old female with history of 2 prior presenting to the emergency room with lateral lower quadrant abdominal pain with cramps. Patient tells me the pain is sharp intermittent lasting for few seconds at a time throughout the day. Patient denies any new vaginal bleeding, new vaginal discharge, fever/chills nausea/vomiting diarrhea melena/hematochezia. Patient denies any urinary symptoms. Patient happy that she is has regular periods currently on her period. Patient has a history of right renal colic reports current symptoms not similar to renal colic she experienced before. She is able to tolerate p.o. without difficulty. Denies any cough, runny nose, sore throat, chest pain or shortness breath. Onset: 4 days ago Duration:4 days Location:home Severity:moderate Associated symptoms: Deny chest pain, dyspnea, nausea, rash, palpitations or vomiting Review of Systems Const: Denies: fever(s) or chills Eyes: Denies: change in vision ENMT: Denies: mouth pain Card: Denies: chest pain or palpitations Resp: Denies: dyspnea or non-productive cough GI: Reports: abdominal pain (+b/l lower abd pain); Denies: nausea, vomiting or diarrhea : Reports: other (pelvic cramps); Denies: dysuria Musc: Denies: extremity pain Skin/Breast: Denies: rash or new lesions Neuro: Denies: weakness in extremities Psych: Reports: other (Normal mood) Cleve/Lymph: Denies: easy bruising PFSH ED PFSH: Medical History Depression Diagnosed when she was 8-year-old. Not currently on any medication. Last used medication in 2014. Does not see a therapist. No pertinent past medical history Denies diabetes, asthma, hypertension, seizures, DVT/PE PMD: Brooklynn Sainz Surgical History History of section X 3 2013--primary low transverse delivery-Dr. Baron 2014--repeat low transverse delivery-Dr. Gustafson at [facility] [place] 01/11/2021--schedule repeat low transverse delivery at 39 weeks-dense additions of bladder onto the uterus. By Dr. Gustafson at [facility] [place] History of cystoscopy 2015 cystoscopy with right retrograde ureteropyelogram and right ureteral stone extraction x2 performed by Dr. Sheets Hx of tonsillectomy And adenoidectomy at the age of 6 Family History Father Hypercholesteremia Hypertension Heart disease Hyperlipidemia Grandmother Heart disease maternal Hypercholesteremia maternal Hyperlipidemia maternal Hypertension maternal Mother Hypercholesteremia Hyperlipidemia Sister Thyroid disease Denies family history of Colon cancer Ovarian cancer Diabetes Breast cancer Bleeding disorder Uterine cancer Stroke Social History Smoking and tobacco status: never smoked Alcohol intake: never Additional social history: - Tobacco use: Never Alcohol use: occasional prior to Drug use: Never Physical Exam Const: COMMON NORMALS: alert HENMT: COMMON NORMALS: atraumatic HEAD & SCALP: atraumatic MOUTH: moist mucous membranes not abnormal Eye: COMMON NORMALS: EOMs intact bilaterally and conjunctivae normal CONJUNCTIVA: Yes conjunctivae normal Neck/C-Spine: COMMON NORMALS: full ROM and supple Resp: COMMON NORMALS: normal respiratory effort and clear to auscultation bilaterally AUSCULTATION: clear to auscultation bilaterally Cardio: COMMON NORMALS: regular rate RATE: regular rate GI: COMMON NORMALS: Soft to palpation and non-tender PALPATION: Yes Soft to palpation OTHER: No focal TTP. NO guarding rebound, guarding, rigidity. No CVA tenderness to percussion. Neg Dobson/Neg McBurney's point tenderness, no suprabupic tenderness to palpation. Extremity: COMMON NORMALS: full ROM Neuro: SENSORIUM/ORIENTATION: Yes alert MOTOR EXAM: No Abnormal motor strength present and Other motor observations present (no focal motor deficits) Psych: COMMON NORMALS: speech normal SPEECH: Yes normal speech MOOD & AFFECT: Yes euthymic mood Course Vital Signs: Vital signs: Vital Signs Temperature 98.2 F 03/27/22 16:44 Pulse Rate 79 03/27/22 17:17 Respiratory Rate 13 03/27/22 17:17 Blood Pressure 118/72 03/27/22 17:17 Pulse Oximetry 100 03/27/22 17:17 MDM - General Adult Medical Decision Making 26-year-old female with a history of 2 prior presenting to the emergency room bilateral lower abdominal cramps x4 days. Patient has no focal tenderness palpation on physical exam. Patient is currently with a beta-hCG of in the 300s. Transvaginal ultrasound did not show any focal findings. H&H appears to be stable. Ultrasound negative for any acute pathologies. UA negative for any UTI. Patient received IVF Tylenol reports pain improved significantly. I have given patient follow up with our skilled nursing case manager to be seen by our outpatient OB for followup iwth Patient aware of a call from our skilled nursing case manager to schedule for appointment(s) and verbalizes understanding of the importance of following up. I instructed the patient to come back to the emergency room or follow-up with her OB provider for repeat beta-hCG in 48 to 72 hours to confirm that this is not ectopic . Patient verbalized understanding of everything discussed. Rx tylenol PRN pain Disposition: Discharge. Patient counseled regarding diagnostic impression, treatment plan. Patient given ED strict return precautions to return for continuation, worsening, or development of new symptoms. Instructed to f/u w/ PCP regarding symptoms today. Patient verbalized understanding. Lab Data : 03/27/22 17:25 03/27/22 17:25 Radiology Impressions Transvaginal US 03/27/22 17:18 IMPRESSION: 1. No acute findings. Negative for ovarian torsion. 2. Thickened endometrium is nonspecific. 3. Correlate with outcome of the testing which was not available for review at the time of this interpretation. Laboratory Results WBC 8.4 10^3/uL (4.0-10.0) 03/27/22 17:25 RBC 4.45 10^6/uL (4.1-5.3) 03/27/22 17:25 Hgb 13.5 g/dL (11.5-15.3) 03/27/22 17:25 Hct 43.9 % (37.0-47.0) 03/27/22 17: MCV 98.7 fl (81-99) 03/27/22 17:25 MCH 30.3 pg (28.0-34.0) 03/27/22 17: MCHC 30.8 g/dL (30.0-36.0) 03/27/22 17:25 RDW 12.5 % (12.1-15.1) 03/27/22 17:25 Plt Count 219 10^3/cmm (130-400) 03/27/22 17:25 MPV 9.5 fL (7.4-10.4) 03/27/22 17:25 Neut % (Auto) 64.5 % 03/27/22 17:25 Lymph % (Auto) 28.0 % 03/27/22 17:25 Haakon % (Auto) 6.1 % 03/27/22 17:25 Eos % (Auto) 0.7 % 03/27/22 17:25 Baso % (Auto) 0.5 % 03/27/22 17:25 Neut # (Auto) 5.38 10^3/uL (1.8-7.7) 03/27/22 17:25 Lymph # (Auto) 2.3 10^3/uL (0.8-4.8) 03/27/22 17:25 Haakon # (Auto) 0.5 10^3/uL (0.2-0.9) 03/27/22 17:25 Eos # (Auto) 0.1 10^3/uL (0.0-0.8) 03/27/22 17:25 Baso # (Auto) 0.0 10^3/uL (0.0-0.1) 03/27/22 17:25 Nucleated RBC % (auto) 0 % 03/27/22 17:25 Nucleated RBCs # 0.0 /100WBC 03/27/22 17:25 Sodium 135 mmol/L (136-145) L 03/27/22 17:25 Potassium 4.1 mmol/L (3.5-5.1) 03/27/22 17:25 Chloride 103 mmol/L (98-107) 03/27/22 17:25 Carbon Dioxide 23 mmol/L (22-29) 03/27/22 17:25 Anion Gap 13.1 (5-19) 03/27/22 17:25 BUN 9 mg/dL (6-20) 03/27/22 17:25 Creatinine 0.6 mg/dL (0.5-0.9) 03/27/22 17:25 GFR Calculation 120.8 mL/min (90-130) 03/27/22 17:25 Glucose 79 mg/dL (65-115) 03/27/22 17:25 Calculated Osmolality 278 mOsm/kg (285-295) L 03/27/22 17:25 Calcium 8.8 mg/dL (8.5-10.5) 03/27/22 17:25 Total Bilirubin 0.4 mg/dL (0.15-1.2) 03/27/22 17:25 AST 14 U/L (0-32) 03/27/22 17:25 ALT 13 U/L (0-33) 03/27/22 17:25 Alkaline Phosphatase 88 IU/L (35-105) 03/27/22 17:25 C-Reactive Protein 4.7 mg/L (0.0-4.9) 03/27/22 17:25 Total Protein 6.8 g/dL (6.6-8.7) 03/27/22 17:25 Albumin 4.6 g/dL (3.5-5.2) 03/27/22 17:25 Globulin 2.2 g/dL (1.3-4.6) 03/27/22 17:25 Lipase 15 U/L (13-60) 03/27/22 17:25 HCG, Qual Positive (Negative) H 03/27/22 17:25 Ser , Semi-Qnt 345.50 mIU/mL 03/27/22 17:25 Urine Color Yellow (Yellow) 03/27/22 17:55 Urine Appearance Clear (CLEAR) 03/27/22 17:55 Urine pH 5 (5-7) 03/27/22 17:55 Ur Specific Whitwell 1.015 (1.005-1.030) 03/27/22 17:55 Urine Protein Neg (Negative) 03/27/22 17:55 Urine Glucose (UA) Norm (Normal) 03/27/22 17:55 Urine Ketones Negative (Negative) 03/27/22 17:55 Urine Blood Neg (Negative) 03/27/22 17:55 Urine Nitrate Negative (Negative) 03/27/22 17:55 Urine Bilirubin Neg (Negative) 03/27/22 17:55 Urine Urobilinogen Norm mg/dL (Negative) 03/27/22 17:55 Ur Leukocyte Esterase Negative (Negative) 03/27/22 17:55 Imaging Data Other Imaging: Radiologist's impression: [address] [address] Ultrasound Report Signed Patient: Lea Batista Unit #: [id number] : 1995 Age/Sex: 26 / F ADM Date: 03/27/22 Loc: ER Room/Bed: Attending Dr: Ordering Provider/Ordering MD: Sam Lawrence MD Date of Service: 03/27/22 Procedure(s): US transvaginal [id number] Accession Number(s): [id number] Report Number: [id number] PROCEDURE INFORMATION: Exam: US Pelvis Complete, Transabdominal and US Pelvis, Transvaginal and US Duplex Artery and Vein, Ovaries, Complete Exam date and time: 03/27/2022 5:57 PM Age: 26 years old Clinical indication: Pelvic pain; Patient HX: G4-p3-a1-l3. Lmp = 03/15/2022; Patient is sexually active, admits possibility of . cg is pending. Only surgery was csection x 1; Additional info: Pelvic cramps x 4 days TECHNIQUE: Imaging protocol: Real-time transabdominal and transvaginal pelvic ultrasound (complete) with image documentation. Transvaginal imaging was used for better evaluation of the endometrium, adnexa, and/or cervix. Real-time duplex ultrasound scan of the arterial and venous flow of the ovaries with B-mode, color Doppler flow and spectral waveform analysis. COMPARISON: US OB follow up [facility] 11/21/2020 10:18 AM FINDINGS: Uterus: Uterus is normal in size and morphology without mass. Endometrial stripe is homogeneous, but thickened measuring 3.1 cm. No visible intrauterine gestation. Right ovary/adnexa: Ovary is normal. Small follicles. No mass. Normal ovarian blood flow. Unremarkable arterial and venous spectral Doppler waveforms. Size dimensions 3.5 cm x 3 cm x 2.4 cm. 13.3 mL volume estimate. Left ovary/adnexa: Ovary is normal. Small follicles. No mass. Normal ovarian blood flow. Unremarkable arterial and venous spectral Doppler waveforms. Dimensions 2.1 cm x 1.9 cm x 1.9 cm. 4.9 mL volume estimate. Intraperitoneal space: Small volume simple pelvic free fluid within right adnexa. Urinary bladder: Normal. / transvaginal [id number] IMPRESSION: 1. No acute findings. Negative for ovarian torsion. 2. Thickened endometrium is nonspecific. 3. Correlate with outcome of the testing which was not available for review at the time of this interpretation. ? Dictated By: Hank Rangel Signed By: Hank Rangel Signed Date/Time: 03/27/221919 DD/ 56 Discharge Plan Discharge Patient Disposition: Home Clinical Impression: Pelvic cramping, of unknown anatomic location Condition: Stable Prescriptions: New acetaminophen 500 mg tablet 500 mg PO Q6H PRN (Reason: pain) 5 Days Qty: 20 0RF No Action ondansetron 4 mg tablet,disintegrating 4 mg PO Q8H PRN (Reason: nausea and vomiting) Qty: 20 0RF Discharge Orders: Discharge ED (Routine); Ordered 03/27/22 Ordered By: Sam Lawrence Discharge Diet: Advance as tolerated Discharge Activity: Increase activity as tolerated Patient Instructions: Pelvic Pain (ED) Activity Restrictions/Additional Instructions: Please come back to the emergency room notice any vaginal bleeding, worsening pelvic pain, fever/chills, new vaginal discharge, or any new concerning complaints. Please repeat HCG in 48-72 hrs with your OB doctor or come back to the ER. Coding Level of Care Code ED Mobile Developer for Chg Fwd Exam Comprehensive
[2022-03-27 17:35] LABS: Basophils % 0.5 %; Eosinophils # 0.1 10^3/uL (0.0-0.8); Eosinophils % 0.7 %; Hematocrit 43.9 % (37.0-47.0); Hemoglobin 13.5 g/dL (11.5-15.3); Lymphocytes # 2.3 10^3/uL (0.8-4.8); Mean Corpuscular HGB Conc 30.8 g/dL (30.0-36.0); Mean Corpuscular Hemoglobin 30.3 pg (28.0-34.0); Mean Corpuscular Volume 98.7 fl (81-99); Mean Platelet Volume 9.5 fL (7.4-10.4); Monocytes # 0.5 10^3/uL (0.2-0.9); Monocytes % 6.1 %; Neutrophils # 5.38 10^3/uL (1.8-7.7); Neutrophils % 64.5 %; Nucleated Red Blood Cells % 0 %; Platelet Count 219 10^3/cmm (130-400); Red Blood Count 4.45 10^6/uL (4.1-5.3); Red Cell Distribution Width 12.5 % (12.1-15.1); White Blood Count 8.4 10^3/uL (4.0-10.0)
[2022-03-27 17:41] LABS: HCG, Serum Qual Positive (Negative)
[2022-03-27 17:49] LABS: Alanine Aminotransferase 13 U/L (0-33); Albumin Level 4.6 g/dL (3.5-5.2); Alkaline Phosphatase 88 IU/L (35-105); Anion Gap 13.1 (5-19); Aspartate Amino Transferase 14 U/L (0-32); Blood Urea Nitrogen 9 mg/dL (6-20); C Reactive Protein 4.7 mg/L (0.0-4.9); Calcium 8.8 mg/dL (8.5-10.5); Carbon Dioxide 23 mmol/L (22-29); Chloride 103 mmol/L (98-107); Globulin 2.2 g/dL (1.3-4.6); Glomerular Filtration Rate 120.8 mL/min (90-130); Glucose 79 mg/dL (65-115); Lipase 15 U/L (13-60); Osmolality Calculated 278 mOsm/kg (285-295); Potassium 4.1 mmol/L (3.5-5.1); Sodium 135 mmol/L (136-145); Total Bilirubin 0.4 mg/dL (0.15-1.2); Total Protein 6.8 g/dL (6.6-8.7)
[2022-03-27 18:01] LABS: Add Urine Microscopic? NO; Charge for UA Resulting for Rev
[2022-03-27 18:14] LABS: Bilirubin Urine Neg (Negative); Blood Urine Neg (Negative); Glucose Urine UA Norm (Normal); Ketones Urine Negative (Negative); Leukocyte Esterase Urine Negative (Negative); Nitrate Urine Negative (Negative); Protein Urine Neg (Negative); Specific Gravity, Urine 1.015 (1.005-1.030); Urine Appearance Clear (CLEAR); Urine Color Yellow (Yellow); Urobilinogen Urine Norm (Negative); pH Urine 5 (5-7)
[2022-03-27] MEDS: acetaminophen 500 mg Tablet 1000 MG PO (18:43)
[2022-03-27] MEDS: sodium chloride 0.9% 1,000 ML 999 ML IV (18:44)
--- NOTE | 2022-03-28 12:54 | DCPLANNER ---
Addendum entered by Jes Choi 03/29/22 13:44: Patient had a follow up appointment scheduled with [facility] - patient did attend appointment. Original Note: manager brand had message to schedule a follow [facility] appointment for [facility] with [facility]. manager brand sent patients information to the front office staff at [facility]. Patients information will be printed and reviewed. Clinic will call patient with appointment information.
== END 2022-03-27 19:42 | disposition home or self-care (01) ==
PROVIDERS: Emergency Provider Emergency Medicine
DX: Z32.01 Encounter for pregnancy test, result positive (principal); R10.2 Pelvic and perineal pain
CPT/HCPCS: 76830; 80053; 81003; 83690; 84702; 84703; 85025; 86140; 96360; 99284; J7030

== ENCOUNTER → 2022-03-29 13:42 | Outpatient (BNVA) | payer OTHER, SELFPAY | PROVIDERS: Visit Provider Obstetrics & Gynecology | DX: O36.80X0 Pregnancy with inconclusive fetal viability, not applicable or unspecified (principal); Z3A.00 Weeks of gestation of pregnancy not specified | CPT/HCPCS: 84702 ==

== ENCOUNTER → 2022-04-04 09:16 | Outpatient (BNVA) | payer OTHER, SELFPAY | PROVIDERS: Visit Provider Obstetrics & Gynecology | DX: Z34.90 Encounter for supervision of normal pregnancy, unspecified, unspecified trimester (principal) | CPT/HCPCS: 84702 ==

== ENCOUNTER 2022-04-10 06:08 | Outpatient (CLI) | payer OTHER, BC, SELFPAY ==
--- NOTE | 2022-04-10 | US_ITS ---
WS: [id number] ULTRASOUND EARLY TECHNIQUE: Transabdominal sonography of the pelvis was performed. Followed by transvaginal sonography to better evaluate the uterus and ovaries. CLINICAL INFORMATION: 1ST TRIMESTER LMP: ? Beta hCG: Unknown. COMPARISON: March 27, 2022 FINDINGS: Cervix is long and closed. UTERUS AND GESTATIONAL SAC Intrauterine gestations: Single intrauterine gestation visualized with pole and cardiac activit y. Estimated gestational age: 6w3d Estimated delivery December 01, 2022 Addy rump length (CRL): 0.6 cm. heart motion: 107 BPM. Subchorionic hemorrhage: None. OVARIES Right ovary: Corpus luteum cyst. Left ovary: Normal. FREE FLUID Present US/US OB <=14 wk fetus w transvag IMPRESSION: 1. Single live intrauterine with cardiac activity. 2. Estimated gestational age; 6w3d. 3. Estimated delivery December 01, 2022 4. Normal ovaries. Incidental RIGHT corpus luteum cyst. 5. Small amount of free fluid in the cul-de-sac. 6. Cervix is long and closed.
== END 2022-04-10 06:09 | disposition home or self-care (01) ==
LOC: RAD 06:10
PROVIDERS: Visit Provider Obstetrics & Gynecology
DX: Z34.91 Encounter for supervision of normal pregnancy, unspecified, first trimester (principal); O34.81 Maternal care for other abnormalities of pelvic organs, first trimester; N83.11 Corpus luteum cyst of right ovary; Z3A.01 Less than 8 weeks gestation of pregnancy
CPT/HCPCS: 76801; 76817

== ENCOUNTER 2022-05-10 18:14 | Emergency (ER) | payer BC, MEDICAID, SELFPAY ==
[2022-05-10 18:28] VITALS: BP 125/75; PULSE 90; RESP 16; TEMP 36.8; O2SAT 97; BMI 31.1
[2022-05-10 20:11] LABS: Basophils % 0.6 %; Eosinophils # 0.1 10^3/uL (0.0-0.8); Eosinophils % 1.5 %; Hematocrit 42.5 % (37.0-47.0); Hemoglobin 14.4 g/dL (11.5-15.3); Lymphocytes # 1.9 10^3/uL (0.8-4.8); Mean Corpuscular HGB Conc 33.9 g/dL (30.0-36.0); Mean Corpuscular Hemoglobin 30.8 pg (28.0-34.0); Mean Corpuscular Volume 90.8 fl (81-99); Mean Platelet Volume 9.7 fL (7.4-10.4); Monocytes # 0.5 10^3/uL (0.2-0.9); Monocytes % 6.3 %; Neutrophils % 65.2 %; Nucleated Red Blood Cells % 0 %; Platelet Count 239 10^3/cmm (130-400); Red Blood Count 4.68 10^6/uL (4.1-5.3); Red Cell Distribution Width 12.2 % (12.1-15.1); White Blood Count 7.2 10^3/uL (4.0-10.0)
[2022-05-10 20:25] LABS: HCG, Serum Qual Positive (Negative)
[2022-05-10 20:37] LABS: Alanine Aminotransferase 23 U/L (0-33); Albumin Level 4.2 g/dL (3.5-5.2); Alkaline Phosphatase 95 IU/L (35-105); Anion Gap 16.2 (5-19); Aspartate Amino Transferase 16 U/L (0-32); Blood Urea Nitrogen 8 mg/dL (6-20); Calcium 9.2 mg/dL (8.5-10.5); Carbon Dioxide 24 mmol/L (22-29); Chloride 103 mmol/L (98-107); Globulin 2.9 g/dL (1.3-4.6); Glomerular Filtration Rate 101.1 mL/min (90-130); Glucose 71 mg/dL (65-115); Lipase 21 U/L (13-60); Osmolality Calculated 285 mOsm/kg (285-295); Potassium 4.2 mmol/L (3.5-5.1); Sodium 139 mmol/L (136-145); Total Bilirubin 0.3 mg/dL (0.15-1.2); Total Protein 7.1 g/dL (6.6-8.7)
[2022-05-10] MEDS: sodium chloride 0.9% 1,000 ML 999 ML IV (21:38)
--- NOTE | 2022-05-10 21:53 | ED_ITS ---
HPI - Abdominal Pain General: Chief Complaint: Abdominal Pain Stated Complaint: ADb Pain Time Seen by Provider: 05/10/22 20:39 Source: patient Mode of arrival: ambulatory Limitations: no limitations History of Present Illness: 26-year-old female who states she is roughly 10 weeks states she is having some left mid abdomen pain states pains been sharp in nature denies any worsening proving factors denies any vomiting denies any vaginal bleeding. She denies any fevers or radiation of her pain. Denies any injuries. Associated Symptoms: Denies chills, dysuria and fever(s) Review of Systems Const: Denies: fever(s), chills, body aches or change in appetite Eyes: Denies: blurry vision or eye discomfort ENMT: Denies: throat pain or dental pain Card: Denies: chest pain Resp: Denies: dyspnea GI: Reports: abdominal pain : Denies: dysuria Musc: Denies: neck pain or back pain Skin/Breast: Denies: rash Neuro: Denies: headache(s) Psych: Denies: depression Cleve/Lymph: Denies: easy bruising All/Imm: Denies: urticaria PFSH ED PFSH: Medical History (Updated 05/10/22 @ 22:00 by Kristian Mccall MD) Depression Diagnosed when she was 8-year-old. Not currently on any medication. Last used medication in 2014. Does not see a therapist. No pertinent past medical history Denies diabetes, asthma, hypertension, seizures, DVT/PE PMD: Brooklynn Sainz Surgical History History of section X 3 2013--primary low transverse delivery-Dr. Baron 2014--repeat low transverse delivery-Dr. Gustafson at [facility] [place] 01/11/2021--schedule repeat low transverse delivery at 39 weeks-dense additions of bladder onto the uterus. By Dr. Gustafson at [facility] History of cystoscopy 2014 cystoscopy with right retrograde ureteropyelogram and right ureteral stone extraction x2 performed by Dr. Sheets Hx of tonsillectomy And adenoidectomy at the age of 6 Family History Father Hypercholesteremia Hypertension Heart disease Grandmother Heart disease maternal Hypercholesteremia Maternal Hypertension maternal Diabetes Maternal Mother Hypercholesteremia Sister Thyroid disease Other Hyperlipidemia Denies family history of Colon cancer Ovarian cancer Breast cancer Uterine cancer Stroke Physical Exam Const: COMMON NORMALS: no acute distress, patient oriented x3 and healthy appearing HENMT: COMMON NORMALS: normocephalic and atraumatic HEAD & SCALP: normo cephalic and atraumatic Eye: COMMON NORMALS: Equal, round and reactive pupils present and EOMs intact bilaterally PUPIL: Yes Equal, round and reactive pupils present Neck/C-Spine: COMMON NORMALS: full ROM and supple Chest: COMMONS NORMALS: normal inspection of the chest and normal palpation of entire chest wall Resp: COMMON NORMALS: normal respiratory effort, No retractions, No use of accessory muscles and clear to auscultation bilaterally AUSCULTATION: clear to auscultation bilaterally Cardio: COMMON NORMALS: regular rate, regular rhythm and No murmurs present (Cardio) RATE: regular rate RHYTHM: regular rhythm GI: COMMON NORMALS: Normal to inspection, nondistended, normoactive bowel sounds present, Soft to palpation, non-tender and no masses PALPATION: Yes Soft to palpation Extremity: COMMON NORMALS: normal to inspection and full ROM Neuro: COMMON NORMALS: patient oriented x3, moves all extremities and no focal motor deficits Psych: COMMON NORMALS: mental status grossly normal, Normal thought process present and cooperative THOUGHT PROCESS: Normal thought process present Skin: COMMON NORMALS: no rashes or lesions noted and no wounds GENERAL SKIN EXAM: no rashes or lesions noted Course Vital Signs: Vital signs: Vital Signs Temperature 98.2 F 05/10/22 18:28 Pulse Rate 90 05/10/22 18:28 Respiratory Rate 16 05/10/22 18:28 Blood Pressure 125/75 05/10/22 18:28 Pulse Oximetry 97 05/10/22 18:28 MDM - Abdominal Pain Medical Decision Making Patient presents here with abdominal pain in her exam here is benign she has no tenderness her pain is left-sided I did an ultrasound bedside showed IUP consistent with dates roughly 9 to 10 weeks heart rate in 150s her blood work here is normal she has no signs appendicitis she stable for discharge she is to follow-up with her OB and return if worsening she understands agrees to plan. Lab Data : 05/10/22 19:53 05/10/22 19:53 Labs/Radiology: Laboratory Results WBC 7.2 10^3/uL (4.0-10.0) 05/10/22 19:53 RBC 4.68 10^6/uL (4.1-5.3) 05/10/22 19:53 Hgb 14.4 g/dL (11.5-15.3) 05/10/22 19:53 Hct 42.5 % (37.0-47.0) 05/10/22 19:53 MCV 90.8 fl (81-99) 05/10/22 19:53 MCH 30.8 pg (28.0-34.0) 05/10/22 19:53 MCHC 33.9 g/dL (30.0-36.0) 05/10/22 19:53 RDW 12.2 % (12.1-15.1) 05/10/22 19:53 Plt Count 239 10^3/cmm (130-400) 05/10/22 19:53 MPV 9.7 fL (7.4-10.4) 05/10/22 19:53 Neut % (Auto) 65.2 % 05/10/22 19:53 Lymph % (Auto) 26.0 % 05/10/22 19:53 [place] % (Auto) 6.3 % 05/10/22 19:53 Eos % (Auto) 1.5 % 05/10/22 19:53 Baso % (Auto) 0.6 % 05/10/22 19:53 Neut # (Auto) 4.70 10^3/uL (1.8-7.7) 05/10/22 19:53 Lymph # (Auto) 1.9 10^3/uL (0.8-4.8) 05/10/22 19:53 [place] # (Auto) 0.5 10^3/uL (0.2-0.9) 05/10/22 19:53 Eos # (Auto) 0.1 10^3/uL (0.0-0.8) 05/10/22 19:53 Baso # (Auto) 0.0 10^3/uL (0.0-0.1) 05/10/22 19:53 Nucleated RBC % (auto) 0 % 05/10/22 19:53 Nucleated RBCs # 0.0 /100WBC 05/10/22 19:53 Sodium 139 mmol/L (136-145) 05/10/22 19:53 Potassium 4.2 mmol/L (3.5-5.1) 05/10/22 19:53 Chloride 103 mmol/L (98-107) 05/10/22 19:53 Carbon Dioxide 24 mmol/L (22-29) 05/10/22 19:53 Anion Gap 16.2 (5-19) 05/10/22 19:53 BUN 8 mg/dL (6-20) 05/10/22 19:53 Creatinine 0.7 mg/dL (0.5-0.9) 05/10/22 19:53 GFR Calculation 101.1 mL/min (90-130) 05/10/22 19:53 Glucose 71 mg/dL (65-115) 05/10/22 19:53 Calculated Osmolality 285 mOsm/kg (285-295) 05/10/22 19:53 Calcium 9.2 mg/dL (8.5-10.5) 05/10/22 19:53 Total Bilirubin 0.3 mg/dL (0.15-1.2) 05/10/22 19:53 AST 16 U/L (0-32) 05/10/22 19:53 ALT 23 U/L (0-33) 05/10/22 19:53 Alkaline Phosphatase 95 IU/L (35-105) 05/10/22 19:53 Total Protein 7.1 g/dL (6.6-8.7) 05/10/22 19:53 Albumin 4.2 g/dL (3.5-5.2) 05/10/22 19:53 Globulin 2.9 g/dL (1.3-4.6) 05/10/22 19:53 Lipase 21 U/L (13-60) 05/10/22 19:53 HCG, Qual Positive (Negative) H 05/10/22 19:53 Ser , Semi-Qnt 73660.00 mIU/mL 05/10/22 19:53 Urine Color Yellow (Yellow) 05/10/22 21:43 Urine Appearance Clear (CLEAR) 05/10/22 21:43 Urine pH 5 (5-7) 05/10/22 21:43 Ur Specific [place] 1.025 (1.005-1.030) 05/10/22 21:43 Urine Protein Neg (Negative) 05/10/22 21:43 Urine Glucose (UA) Norm (Normal) 05/10/22 21:43 Urine Ketones 1+ (Negative) H 05/10/22 21:43 Urine Blood Neg (Negative) 05/10/22 21:43 Urine Nitrate Negative (Negative) 05/10/22 21:43 Urine Bilirubin Neg (Negative) 05/10/22 21:43 Urine Urobilinogen 1 mg/dL (Negative) H 05/10/22 21:43 Ur Leukocyte Esterase Negative (Negative) 05/10/22 21:43 Discharge Plan Discharge Patient Disposition: Home Clinical Impression: Abdominal pain Condition: Stable Prescriptions: No Action No Known Home Medications 0RF Discharge Orders: Discharge ED (Routine); Ordered 05/10/22 Ordered By: Kristian Mccall Discharge Diet: Advance as tolerated Discharge Activity: Resume usual activity Patient Instructions: Abdominal Pain (ED) Coding Level of Care Code 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
[2022-05-10 21:54] LABS: Add Urine Microscopic? NO; Charge for UA Resulting for Rev
[2022-05-10 21:56] LABS: Bilirubin Urine Neg (Negative); Blood Urine Neg (Negative); Glucose Urine UA Norm (Normal); Ketones Urine 1+ (Negative); Leukocyte Esterase Urine Negative (Negative); Nitrate Urine Negative (Negative); Protein Urine Neg (Negative); Specific Gravity, Urine 1.025 (1.005-1.030); Urine Appearance Clear (CLEAR); Urine Color Yellow (Yellow); Urobilinogen Urine 1 mg/dL (Negative); pH Urine 5 (5-7)
[2022-05-10 22:33] VITALS: BP 124/75; PULSE 68; RESP 18; O2SAT 100
[2022-05-10] MEDS: acetaminophen 325 mg Tablet 650 MG PO (22:59)
[2022-05-10 23:15] VITALS: BP 124/75; PULSE 68; O2SAT 100
== END 2022-05-10 23:16 | disposition home or self-care (01) ==
PROVIDERS: Emergency Provider Emergency Medicine
DX: R10.9 Unspecified abdominal pain (principal)
CPT/HCPCS: 36415; 80053; 81003; 83690; 84702; 84703; 85025; 99283; J7030

== ENCOUNTER 2022-06-20 08:43 | Emergency (ER) | payer BC, MEDICAID, SELFPAY ==
[2022-06-20 08:48] VITALS: BP 110/72; PULSE 71; RESP 18; TEMP 36.8; O2SAT 99; BMI 31.1
--- NOTE | 2022-06-20 08:51 | W.ED.NAVMDI ---
HPI - Nausea/Vomiting/Diarrhea General: Chief complaint: Dizziness Stated complaint: N/V/Dizzy Time Seen by Provider: 06/20/22 08:50 History of Present Illness: Ms. Batista is a 27-year-old lady -0-1-3 with LMP end of February 2022 presenting for presyncopal episode with nausea and vomiting. Reports being at her baseline health and was at work earlier today. Onset of symptoms was sudden with 1 episode of nonbilious and nonbloody emesis followed by cold feeling and lightheadedness. Currently still feels mildly foggy. No reported seizure history of activity. No trauma associated. Denies frequent episodes of similar though has had some intermittent nausea this . Has not seen OB. No other specific changes in health, exacerbating, or alleviating factors identified. Onset (ago): minute(s) Description of vomiting: watery Associated nausea: Yes Associated abdominal pain: No Location of pain: None Severity: moderate Associated symtoms: Reports nausea Review of Systems General: Reports: 10 or more systems reviewed and unremarkable except in HPI and below GI: Reports: nausea PFSH ED PFSH: Medical History Depression Diagnosed when she was 8-year-old. Not currently on any medication. Last used medication in 2014. Does not see a therapist. No pertinent past medical history Denies diabetes, asthma, hypertension, seizures, DVT/PE PMD: Brooklynn Sainz Surgical History History of section X 3 2013--primary low transverse delivery-Dr. Baron 2014--repeat low transverse delivery-Dr. Gustafson at [facility]/11/2021--schedule repeat low transverse delivery at 39 weeks-dense additions of bladder onto the uterus. By Dr. Gustafson at [facility] History of cystoscopy 2014 cystoscopy with right retrograde ureteropyelogram and right ureteral stone extraction x2 performed by Dr. Sheets Hx of tonsillectomy And adenoidectomy at the age of 6 Family History Father Hypercholesteremia Hypertension Heart disease Grandmother Heart disease maternal Hypercholesteremia Maternal Hypertension maternal Diabetes Maternal Mother Hypercholesteremia Sister Thyroid disease Other Hyperlipidemia Denies family history of Colon cancer Ovarian cancer Breast cancer Uterine cancer Stroke Physical Exam Const: COMMON NORMALS: patient oriented x3 and alert GENERAL APPEARANCE: cooperative and well developed HENMT: COMMON NORMALS: normocephalic and atraumatic HEAD & SCALP: normocephalic and atraumatic THROAT: posterior oropharynx normal Eye: COMMON NORMALS: conjunctivae normal CONJUNCTIVA: Yes conjunctivae normal SCLERA: sclerae normal Neck/C-Spine: COMMON NORMALS: supple GENERAL: Yes trachea midline Resp: COMMON NORMALS: normal respiratory effort EFFORT & INSPECTION: Yes able to speak in complete sentences Cardio: COMMON NORMALS: regular rate and regular rhythm RATE: regular rate RHYTHM: regular rhythm GI: COMMON NORMALS: Soft to palpation PALPATION: Yes Soft to palpation and No Tenderness to palpation present (GI) PERCUSSION: normal to percussion Extremity: GENERAL: Yes normal exam except as noted and No edema Neuro: COMMON NORMALS: patient oriented x3, CN's II-XII intact bilaterally, moves all extremities, no focal motor deficits, no sensory deficits noted and gait normal SENSORIUM/ORIENTATION: Yes alert and No Orientation impaired Psych: COMMON NORMALS: mental status grossly normal and Normal thought process present THOUGHT PROCESS: Normal thought process present Course ED course: - Patient was seen and evaluated by me at bedside - Patient placed on cardiac monitors, IV access obtained - Initial evaluation notable for exam as above. Nonfocal neurologic exam - Labs personally interpreted by me - Fluids and antiemetic ordered - Labs notable for no leukocytosis, mild dehydration - [id number] ultrasound performed with heart rate 145, positive movements. - Upon serial reexamination after treatment the patient was significantly improved with treatment - Based on patient history, evaluation, and testing as interpreted the most likely cause of the patient's condition is vomiting during with presyncope either related to dehydration or viral syndrome. - The results of ED evaluation were discussed with the patient including prescriptions and/or symptomatic cares (if applicable) including appropriate and responsible use, followup plan, and return precautions. The patient verbalized understanding and felt safe for discharge. - Patient discharged in satisfactory condition. Note: Click bubbles or prepopulated pantoja in note writing are used for assistance with data collection and billing and are inherently more limited than narrative and other text portions of this note. Please use narrative for additional clinical history and defer to narrative/free test for any case of contradictory information. If information appears in only free text or click bubble it should be considered present or absent as reported. Please contact note data analyst report writer for clarifications of clinical information or contradictory information. MDM is a brief summary, contradictory or erroneous seeming information should be clarified and full note should be reviewed. Vital Signs: Vital signs: Vital Signs Temperature 98.2 F 06/20/22 08:48 Pulse Rate 85 06/20/22 11:19 Respiratory Rate 18 06/20/22 08:48 Blood Pressure 112/66 06/20/22 09:53 Pulse Oximetry 99 06/20/22 11:19 Oxygen Delivery Me thod 06/20/22 09:53 MDM - Nausea/Vomiting/Diarrhea Medical Decision Making 27-year-old lady LMP end of February 2022 presenting with 1 episode of vomiting associated with presyncope shortly after. No focal neurologic deficits, patient nontoxic in appearance. Significantly improved with treatment. heart rate on POCUS 145. Satisfactory for outpatient management. I will message case management for OB follow-up as the patient reports inability to get into see her typical physician within a reasonable amount of time. Medical Records I reviewed the patient's medical records. Lab Data I reviewed the patient's lab results. : 06/20/22 09:45 06/20/22 09:45 Laboratory Results WBC 8.8 10^3/uL (4.0-10.0) 06/20/22 09:45 RBC 3.96 10^6/uL (4.1-5.3) L 06/20/22 09:45 Hgb 12.5 g/dL (11.5-15.3) 06/20/22 09:45 Hct 37.5 % (37.0-47.0) 06/20/22 09:45 MCV 94.7 fl (81-99) 06/20/22 09:45 MCH 31.6 pg (28.0-34.0) 06/20/22 09:45 MCHC 33.3 g/dL (30.0-36.0) 06/20/22 09:45 RDW 13.1 % (12.1-15.1) 06/20/22 09:45 Plt Count 185 10^3/cmm (130-400) 06/20/22 09:45 MPV 9.4 fL (7.4-10.4) 06/20/22 09:45 Neut % (Auto) 72.8 % 06/20/22 09:45 Lymph % (Auto) 18.4 % 06/20/22 09:45 [place] % (Auto) 5.5 % 06/20/22 09:45 Eos % (Auto) 2.3 % 06/20/22 09:45 Baso % (Auto) 0.3 % 06/20/22 09:45 Neut # (Auto) 6.38 10^3/uL (1.8-7.7) 06/20/22 09:45 Lymph # (Auto) 1.6 10^3/uL (0.8-4.8) 06/20/22 09:45 [place] # (Auto) 0.5 10^3/uL (0.2-0.9) 06/20/22 09:45 Eos # (Auto) 0.2 10^3/uL (0.0-0.8) 06/20/22 09:45 Baso # (Auto) 0.0 10^3/uL (0.0-0.1) 06/20/22 09:45 Nucleated RBC % (auto) 0 % 06/20/22 09:45 Nucleated RBCs # 0.0 /100WBC 06/20/22 09:45 Sodium 134 mmol/L (136-145) L 06/20/22 09:45 Potassium 4.0 mmol/L (3.5-5.1) 06/20/22 09:45 Chloride 103 mmol/L (98-107) 06/20/22 09:45 Carbon Dioxide 23 mmol/L (22-29) 06/20/22 09:45 Anion Gap 12.0 (5-19) 06/20/22 09:45 BUN 7 mg/dL (6-20) 06/20/22 09:45 Creatinine 0.5 mg/dL (0.5-0.9) 06/20/22 09:45 GFR Calculation 148.0 mL/min (90-130) H 06/20/22 09:45 Glucose 75 mg/dL (65-115) 06/20/22 09:45 Calculated Osmolality 275 mOsm/kg (285-295) L 06/20/22 09:45 Calcium 8.4 mg/dL (8.5-10.5) L 06/20/22 09:45 Urine Color Yellow (Yellow) 06/20/22 09:53 Urine Appearance Clear (CLEAR) 06/20/22 09:53 Urine pH 5 (5-7) 06/20/22 09:53 Ur Specific [place] 1.025 (1.005-1.030) 06/20/22 09:53 Urine Protein Neg (Negative) 06/20/22 09:53 Urine Glucose (UA) Norm (Normal) 06/20/22 09:53 Urine Ketones 1+ (Negative) H 06/20/22 09:53 Urine Blood Neg (Negative) 06/20/22 09:53 Urine Nitrate Negative (Negative) 06/20/22 09:53 Urine Bilirubin Neg (Negative) 06/20/22 09:53 Urine Urobilinogen Norm mg/dL (Negative) 06/20/22 09:53 Ur Leukocyte Esterase Negative (Negative) 06/20/22 09:53 Discharge Plan Discharge Patient Disposition: Home Clinical Impression: Dehydration, Pre-syncope, Condition: Stable Prescriptions: New pyridoxine (vitamin B6) 25 mg tablet 25 mg PO TID PRN (Reason: nausea and vomiting) Qty: 30 0RF doxylamine succinate 25 mg tablet 25 mg PO TID PRN (Reason: nausea and vomiting) Qty: 30 0RF No Action Fish Oil Concentrate 1,000 mg Capsule 1,000 mg PO QAM Multivitamins 28 mg iron- 800 mcg Tablet 1 tab PO QAM Discharge Orders: Discharge ED (Routine); Ordered 06/20/22 Ordered By: Deep Quintana Discharge Diet: Usual diet Discharge Activity: Increase activity as tolerated Patient Instructions: Nausea and Vomiting in (ED), Dehydration (ED), Near Syncope (ED) Activity Restrictions/Additional Instructions: Thank you for visiting the emergency department. You were seen and evaluated for vomiting and presyncope in the context of . The exact cause of your symptoms is unclear though likely related to dehydration or mild viral syndrome. I will message case management for follow-up with obstetrics/gynecology. Please contact them if you do not hear from them by Friday afternoon. Please return to the emergency department for recurrent symptoms or anything else that you are concerned about a feel needs emergency department evaluation. Stand Alone Forms: Work/School Release Coding Level of Care Code ED Client Technologies Specialist for Chg Fwd Exam Comprehensive
[2022-06-20 08:53] VITALS: BP 126/67; PULSE 71; O2SAT 97
[2022-06-20] MEDS: diphenhydrAMINE 50 mg/mL SDV 1mL 25 MG IVP (09:34)
[2022-06-20] MEDS: metoclopramide 5 mg/mL SDV 2 mL 10 MG IVP (09:35)
[2022-06-20] MEDS: sodium chloride 0.9% 1,000 ML 999 ML IV (09:36)
[2022-06-20 09:40] VITALS: BP 110/75; BP 112/66; BP 125/76; PULSE 70; PULSE 72; PULSE 75
[2022-06-20 09:53] VITALS: BP 112/66; PULSE 73; O2SAT 97
[2022-06-20 10:02] LABS: Add Urine Microscopic? NO; Charge for UA Resulting for Rev
[2022-06-20 10:04] LABS: Basophils % 0.3 %; Eosinophils # 0.2 10^3/uL (0.0-0.8); Eosinophils % 2.3 %; Hematocrit 37.5 % (37.0-47.0); Hemoglobin 12.5 g/dL (11.5-15.3); Lymphocytes # 1.6 10^3/uL (0.8-4.8); Lymphocytes % 18.4 %; Mean Corpuscular HGB Conc 33.3 g/dL (30.0-36.0); Mean Corpuscular Hemoglobin 31.6 pg (28.0-34.0); Mean Corpuscular Volume 94.7 fl (81-99); Mean Platelet Volume 9.4 fL (7.4-10.4); Monocytes # 0.5 10^3/uL (0.2-0.9); Monocytes % 5.5 %; Neutrophils # 6.38 10^3/uL (1.8-7.7); Neutrophils % 72.8 %; Nucleated Red Blood Cells % 0 %; Platelet Count 185 10^3/cmm (130-400); Red Blood Count 3.96 10^6/uL (4.1-5.3); Red Cell Distribution Width 13.1 % (12.1-15.1); White Blood Count 8.8 10^3/uL (4.0-10.0)
[2022-06-20 10:07] LABS: Bilirubin Urine Neg (Negative); Blood Urine Neg (Negative); Glucose Urine UA Norm (Normal); Ketones Urine 1+ (Negative); Leukocyte Esterase Urine Negative (Negative); Nitrate Urine Negative (Negative); Protein Urine Neg (Negative); Specific Gravity, Urine 1.025 (1.005-1.030); Urine Appearance Clear (CLEAR); Urine Color Yellow (Yellow); Urobilinogen Urine Norm (Negative); pH Urine 5 (5-7)
[2022-06-20 10:14] LABS: Blood Urea Nitrogen 7 mg/dL (6-20); Calcium 8.4 mg/dL (8.5-10.5); Carbon Dioxide 23 mmol/L (22-29); Chloride 103 mmol/L (98-107); Creatinine Clr Calc Pharmacy 162.4963; Glucose 75 mg/dL (65-115); Osmolality Calculated 275 mOsm/kg (285-295); Sodium 134 mmol/L (136-145)
[2022-06-20 11:19] VITALS: PULSE 85; O2SAT 99
--- NOTE | 2022-06-21 10:02 | DCPLANNER ---
Addendum entered by Jes Choi 07/05/22 08:39: Patient had a follow up appointment scheduled with [facility] - patient did not attend appointment. Addendum entered by Jes Choi 06/27/22 07:54: Patient has a follow up appointment scheduled for Saturday, July 02, 2022 at 8:[address] Medina at [facility]. Clinic will call patient with appointment information. Original Note: manager cardiac had message to schedule a follow up appointment for patient with [facility]. manager cardiac sent patients information to the front office staff at [facility]. Patients information will be printed and reviewed. Clinic will call patient with appointment information.
== END 2022-06-20 11:20 | disposition home or self-care (01) ==
PROVIDERS: Emergency Provider Emergency Medicine
DX: O26.899 Other specified pregnancy related conditions, unspecified trimester (principal); Z3A.00 Weeks of gestation of pregnancy not specified; R55 Syncope and collapse; E86.0 Dehydration
CPT/HCPCS: 80048; 81003; 85025; 96361; 96374; 96375; 99284; J1200; J2765; J7030

== ENCOUNTER 2022-07-06 10:48 | Emergency (ER) | payer BC, MEDICAID, SELFPAY ==
[2022-07-06 10:52] VITALS: BP 128/76; PULSE 94; RESP 14; TEMP 36.7; O2SAT 97; BMI 32.0
--- NOTE | 2022-07-06 11:01 | ED_ITS ---
HPI - General Adult General: Chief complaint: Abdominal Pain Stated complaint: Lower abd pain Time Seen by Provider: 07/06/22 10:59 History of Present Illness: Patient is a 27-year-old female at 18 weeks presenting to the emergency room for evaluation of lower abdominal pain. Patient tells me around 5 PM yesterday she had multiple episodes of sneezing. Shortly after, patient began developing suprapubic lower abdominal pain with radiation to the bilateral lower abdomen. Patient has any nausea vomiting, fever or chills. Patient has some burning earlier this morning with urination. However in the ER, patient denies any dysuria when attempting to get the urine today. Patient has a history renal colic but denies the pain is similar to prior presentation. Patient denies any new vaginal discharge, pelvic contractions, or vaginal bleeding. Patient denies any cough, runny nose, sore throat, fever or chills. Patient has no other focal complaints Onset: 5pm yesterday Duration:ongoing worse with sneezing Location:home Severity:moderate Associated symptoms: Deny chest pain, dyspnea, nausea, rash, palpitations or vomiting Review of Systems Const: Denies: fever(s) or chills Eyes: Denies: change in vision ENMT: Denies: mouth pain Card: Denies: chest pain or palpitations Resp: Denies: dyspnea or non-productive cough GI: Reports: abdominal pain (+lower abd pain); Denies: nausea, vomiting or diarrhea : Denies: dysuria Musc: Denies: extremity pain Skin/Breast: Denies: rash or new lesions Neuro: Denies: weakness in extremities Psych: Reports: other (Normal mood) Cleve/Lymph: Denies: easy bruising PFSH ED PFSH: Medical History Depression Diagnosed when she was 8-year-old. Not currently on any medication. Last used medication in 2014. Does not see a therapist. No pertinent past medical history Denies diabetes, asthma, hypertension, seizures, DVT/PE PMD: Brooklynn Sainz Surgical History History of section X 3 2013--primary low transverse delivery-Dr. Baron 2014--repeat low transverse delivery[place] [facility] [place]schedule repeat low transverse delivery at 39 weeks-dense additions of bladder onto the uterus. By Dr. Gustafson at [facility] [place] History of cystoscopy 2014 cystoscopy with right retrograde ureteropyelogram and right ureteral stone extraction x2 performed by Dr. Sheets Hx of tonsillectomy And adenoidectomy at the age of 6 Family History Father Hypercholesteremia Hypertension Heart disease Grandmother Heart disease maternal Hypercholesteremia Maternal Hypertension maternal Diabetes Maternal Mother Hypercholesteremia Sister Thyroid disease Other Hyperlipidemia Denies family history of Colon cancer Ovarian cancer Breast cancer Uterine cancer Stroke Physical Exam Const: COMMON NORMALS: alert HENMT: COMMON NORMALS: atraumatic HEAD & SCALP: atraumatic MOUTH: moist mucous membranes not abnormal Eye: COMMON NORMALS: EOMs intact bilaterally and conjunctivae normal C ONJUNCTIVA: Yes conjunctivae normal Neck/C-Spine: COMMON NORMALS: full ROM and supple Resp: COMMON NORMALS: normal respiratory effort and clear to auscultation bilaterally AUSCULTATION: clear to auscultation bilaterally Cardio: COMMON NORMALS: regular rate RATE: regular rate GI: COMMON NORMALS: Soft to palpation and non-tender PALPATION: Yes Soft to palpation OTHER: No focal TTP. NO guarding rebound, guarding, rigidity. No CVA tenderness to percussion. Neg Dobson/Neg McBurney's point tenderness, no suprabupic tenderness to palpation. Extremity: COMMON NORMALS: full ROM Neuro: SENSORIUM/ORIENTATION: Yes alert MOTOR EXAM: No Abnormal motor strength present and Other motor observations present (no focal motor deficits) Psych: COMMON NORMALS: speech normal SPEECH: Yes normal speech MOOD & AFFECT: Yes euthymic mood Course Vital Signs: Vital signs: Vital Signs Temperature 98.0 F 07/06/22 10:52 Pulse Rate 86 07/06/22 13:56 Respiratory Rate 16 07/06/22 13:56 Blood Pressure 118/67 07/06/22 13:56 Pulse Oximetry 100 07/06/22 13:56 Oxygen Delivery Me thod 07/06/22 10:52 MDM - General Adult Medical Decision Making Patient is a 27-year-old female at 18 weeks presenting to the emergency room for evaluation of lower abdominal pain. She has no focal tenderness palpation. Hemodynamically stable. White count of 6.7. CRP is noted to be elevated at 30. Ultrasound confirmed IUP today. UA is negative for any signs of UTI or renal colic. Appendix not visualized. There is no placental pathology today on ultrasound. Considered appendicitis however unlikely at this time given lack of signs and s x's to suggest appendicitis as etiology. Pt counseled that appendicitis may later develop and given appendicitis precautions and instructed to return if any development of RLQ tenderness, worsening or continued abdominal pain, or any fevers, chills, nausea, vomiting, or any other concerning signs or symptoms. Rx tylenol PRN pain Disposition: Discharge. Patient counseled regarding diagnostic impression, treatment plan. Patient given ED strict return precautions to return for continuation, worsening, or development of new symptoms. Instructed to f/u w/ PCP regarding symptoms today. Patient verbalized understanding. Lab Data : 07/06/22 11:27 07/06/22 11:27 Radiology Impressions Obstetrics Ultrasound 07/06/22 11:51 IMPRESSION: 1. Single living intrauterine gestation. 2. Normal amniotic fluid volume. 3. Anterior placenta 4. Cervix measures 4.2 cm Appendix Ultrasound 07/06/22 12:36 IMPRESSION: 1. The appendix is not visible 2. Otherwise No acute findings. Laboratory Results WBC 6.7 10^3/uL (4.0-10.0) 07/06/22 11:27 RBC 3.84 10^6/uL (4.1-5.3) L 07/06/22 11:27 Hgb 12.2 g/dL (11.5-15.3) 07/06/22 11:27 Hct 35.5 % (37.0-47.0) L 07/06/22 11:27 MCV 92.4 fl (81-99) 07/06/22 11:27 MCH 31.8 pg (28.0-34.0) 07/06/22 11:27 MCHC 34.4 g/dL (30.0-36.0) 07/06/22 11:27 RDW 13.0 % (12.1-15.1) 07/06/22 11:27 Plt Count 177 10^3/cmm (130-400) 07/06/22 11:27 MPV 9.1 fL (7.4-10.4) 07/06/22 11:27 Neut % (Auto) 79.4 % 07/06/22 11:27 Lymph % (Auto) 14.1 % 07/06/22 11:27 [place] % (Auto) 4.7 % 07/06/22 11:27 Eos % (Auto) 1.2 % 07/06/22 11:27 Baso % (Auto) 0.3 % 07/06/22 11:27 Neut # (Auto) 5.35 10^3/uL (1.8-7.7) 07/06/22 11:27 Lymph # (Auto) 1.0 10^3/uL (0.8-4.8) 07/06/22 11:27 [place] # (Auto) 0.3 10^3/uL (0.2-0.9) 07/06/22 11:27 Eos # (Auto) 0.1 10^3/uL (0.0-0.8) 07/06/22 11: Baso # (Auto) 0.0 10^3/uL (0.0-0.1) 07/06/22 11:27 Nucleated RBC % (auto) 0 % 07/06/22 11:27 Nucleated RBCs # 0.0 /100WBC 07/06/22 11:27 Sodium 138 mmol/L (136-145) 07/06/22 11:27 Potassium 3.9 mmol/L (3.5-5.1) 07/06/22 11:27 Chloride 106 mmol/L (98-107) 07/06/22 11:27 Carbon Dioxide 21 mmol/L (22-29) L 07/06/22 11:27 Anion Gap 14.9 (5-19) 07/06/22 11:27 BUN 4 mg/dL (6-20) L 07/06/22 11:27 Creatinine 0.5 mg/dL (0.5-0.9) 07/06/22 11:27 GFR Calculation 148.0 mL/min (90-130) H 07/06/22 11:27 Glucose 101 mg/dL (65-115) 07/06/22 11:27 Calculated Osmolality 283 mOsm/kg (285-295) L 07/06/22 11:27 Calcium 8.4 mg/dL (8.5-10.5) L 07/06/22 11:27 Total Bilirubin 0.3 mg/dL (0.15-1.2) 07/06/22 11:27 AST 16 U/L (0-32) 07/06/22 11:27 ALT 16 U/L (0-33) 07/06/22 11:27 Alkaline Phosphatase 110 U/L (35-105) H 07/06/22 11:27 C-Reactive Protein 32.4 mg/L (0.0-4.9) H 07/06/22 11:27 Total Protein 6.3 g/dL (6.6-8.7) L 07/06/22 11:27 Albumin 3.3 g/dL (3.5-5.2) L 07/06/22 11:27 Globulin 3.0 g/dL (1.3-4.6) 07/06/22 11:27 Lipase 12 U/L (13-60) L 07/06/22 11:27 Ser , Semi-Qnt 14574.00 mIU/mL 07/06/22 11:27 Urine Color Straw (Yellow) 07/06/22 11:08 Urine Appearance Clear (CLEAR) 07/06/22 11:08 Urine pH 7 (5-7) 07/06/22 11:08 Ur Specific [place] 1.005 (1.005-1.030) 07/06/22 11:08 Urine Protein Neg (Negative) 07/06/22 11:08 Urine Glucose (UA) Norm (Normal) 07/06/22 11:08 Urine Ketones Negative (Negative) 07/06/22 11:08 Urine Blood Neg (Negative) 07/06/22 11:08 Urine Nitrate Negative (Negative) 07/06/22 11:08 Urine Bilirubin Neg (Negative) 07/06/22 11:08 Urine Urobilinogen Norm mg/dL (Negative) 07/06/22 11:08 Ur Leukocyte Esterase Negative (Negative) 07/06/22 11:08 Imaging Data Other Imaging: Radiologist's impression: [address] [address] Ultrasound Report Signed Patient: Lea Batista Unit #: [id number] : 1995 Age/Sex: 27 / F ADM Date: 07/06/22 Loc: ER Room/Bed: Attending Dr: Ordering Provider/Ordering MD: Sam Lawrence MD Date of Service: 07/06/22 Procedure(s): US appendix [id number] Accession Number(s): [id number] Report Number: [id number] PROCEDURE INFORMATION: Exam: US Abdomen, Limited; Appendix Exam date and time: 07/06/2022 1:00 PM Age: 27 years old Clinical indication: Abdominal pain; Acute; ; Prior surgery; Surgery date: 6+ months; Surgery type: 3 c sections; Additional info: Eval for appendcitis TECHNIQUE: Imaging protocol: Real time ultrasound of the abdomen with image documentation. Limited exam focused on the appendix. COMPARISON: US transvaginal [id number] 03/27/2022 5:57 PM FINDINGS: Appendix: No evidence of acute appendicitis or right lower quadrant inflammatory process. The appendix is not well visualized US/US appendix [id number] IMPRESSION: 1. The appendix is not visible 2. Otherwise No acute findings. ? Dictated By: Kingsley Antunez Signed By: Kingsley Antunez Signed Date/Time: 07/06/22 1336 DD/ [address] [place] [address] Ultrasound Report Signed Patient: Lea Batista Unit #: [id number] : 1995 Age/Sex: 27 / F ADM Date: 07/06/22 Loc: ER Room/Bed: Attending Dr: Ordering Provider/Ordering MD: Sam Lawrence MD Date of Service: 07/06/22 Procedure(s): US OB limited [id number] Accession Number(s): [id number] Report Number: [id number] PROCEDURE INFORMATION: Exam: US , Limited Exam date and time: 07/06/2022 12:33 PM Age: 27 years old Clinical indication: complicated by abdominal or pelvic pain; Lower; Second trimester (14 weeks 0 days to 27 weeks 6 days); Gestational age or lmp: 18w 6d; ; Prior surgery; Surgery date: 6+ months; Surgery type: 3 c-sections; Additional info: Eval / lower abd pain/ eval placenta abruption LABS AND CLINICAL REPORTS: Last menstrual period start date: 02/24/2022 Gestational age (Established): 18 w 6 d Estimated due date (Established): 12/01/2022 TECHNIQUE: Imaging protocol: Real-time ultrasound of the maternal uterus with image documentation. Exam focused on the clinical indication. COMPARISON: US OB <=14 wk fetus w transvag 04/10/2022 6:20 AM FINDINGS: Gestation: Intrauterine gestation. heart rate: 153 bpm presentation: Transverse Placenta: Anterior grade 0 placenta without previa. Amniotic fluid index: RUBIO is 12.4 cm. The cervix measures 4.2 cm the cervical os is closed. US/US OB limited [id number] IMPRESSION: 1. Single living intrauterine gestation. 2. Normal amniotic fluid volume. 3. Anterior placenta? 4. Cervix measures 4.2 cm ? Dictated By: Kingsley Antunez Signed By: Kingsley Antunez Signed Date/Time: 07/06/22 1317 DD/ 1233 Discharge Plan Discharge Patient Disposition: Home Clinical Impression: Abdominal pain Condition: Stable Prescriptions: No Action Fish Oil Concentrate 1,000 mg Capsule 1,000 mg PO QAM Multivitamins 28 mg iron- 800 mcg Tablet 1 tab PO QAM pyridoxine (vitamin B6) 25 mg tablet 25 mg PO TID PRN (Reason: nausea and vomiting) Qty: 30 0RF doxylamine succinate 25 mg tablet 25 mg PO TID PRN (Reason: nausea and vomiting) Qty: 30 0RF Discharge Orders: Discharge ED (Routine); Ordered 07/06/22 Ordered By: Sam Lawrence Referrals: Murray Medina MD [Primary Care Provider] - Discharge Diet: Advance as tolerated Discharge Activity: Increase activity as tolerated Patient Instructions: Abdominal Pain (ED) Activity Restrictions/Additional Instructions: Please come back if you have any worsening abdominal pain, fever or chills, nausea or vomiting, diarrhea, blood in the stool, inability hold down liquid or solids, or any new concerning complaints. Please return if you develop continued nausea, vomiting, or develop fevers, chills, abdominal pain, abdominal pain that is in the lower right side of your abdomen, or any other concerning signs or symptoms. Coding Level of Care Code ED Scrap Separator for Chg Fwd Exam Comprehensive
--- NOTE | 2022-07-06 11:01 | PC.NURSE ---
pt reports she sneezed yesterday and had an excruciating sharp pain to lower abdomen and since then she has had intermittent sharp pain with movement and position changing. Reports this is her 5th , 3 live births, 1 miscarriage. Reports dysuria, nausea, and vomiting. Denies fevers or vaginal bleeding/discharge.
--- NOTE | 2022-07-06 11:20 | PC.NURSE ---
FHT Doppler at 154
[2022-07-06] MEDS: acetaminophen 500 mg Tablet PO (11:28)
[2022-07-06] MEDS: sodium chloride 0.9% 1,000 ML 999 ML IV (11:29)
[2022-07-06 11:38] LABS: Basophils % 0.3 %; Eosinophils # 0.1 10^3/uL (0.0-0.8); Eosinophils % 1.2 %; Hematocrit 35.5 % (37.0-47.0); Hemoglobin 12.2 g/dL (11.5-15.3); Lymphocytes % 14.1 %; Mean Corpuscular HGB Conc 34.4 g/dL (30.0-36.0); Mean Corpuscular Hemoglobin 31.8 pg (28.0-34.0); Mean Corpuscular Volume 92.4 fl (81-99); Mean Platelet Volume 9.1 fL (7.4-10.4); Monocytes # 0.3 10^3/uL (0.2-0.9); Monocytes % 4.7 %; Neutrophils # 5.35 10^3/uL (1.8-7.7); Neutrophils % 79.4 %; Nucleated Red Blood Cells % 0 %; Platelet Count 177 10^3/cmm (130-400); Red Blood Count 3.84 10^6/uL (4.1-5.3); White Blood Count 6.7 10^3/uL (4.0-10.0)
[2022-07-06 11:39] VITALS: PULSE 98; RESP 16; O2SAT 98
[2022-07-06 11:45] LABS: Add Urine Microscopic? NO; Charge for UA Resulting for Rev
--- NOTE | 2022-07-06 11:51 | USR_ITS ---
PROCEDURE INFORMATION: Exam: US , Limited Exam date and time: 07/06/2022 12:33 PM Age: 27 years old Clinical indication: complicated by abdominal or pelvic pain; Lower; Second trimester (14 weeks 0 days to 27 weeks 6 days); Gestational age or lmp: 18w 6d; ; Prior surgery; Surgery date: 6+ months; Surgery type: 3 c-sections; Additional info: Eval / lower abd pain/ eval placenta abruption LABS AND CLINICAL REPORTS: Last menstrual period start date: 02/24/2022 Gestational age (Established): 18 w 6 d Estimated due date (Established): 12/01/2022 TECHNIQUE: Imaging protocol: Real-time ultrasound of the maternal uterus with image documentation. Exam focused on the clinical indication. COMPARISON: US OB <=14 wk fetus w transvag 04/10/2022 6:20 AM FINDINGS: Gestation: Intrauterine gestation. heart rate: 153 bpm presentation: Transverse Placenta: Anterior grade 0 placenta without previa. Amniotic fluid index: RUBIO is 12.4 cm. The cervix measures 4.2 cm the cervical os is closed. US/US OB limited [id number] IMPRESSION: 1. Single living intrauterine gestation. 2. Normal amniotic fluid volume. 3. Anterior placenta 4. Cervix measures 4.2 cm
[2022-07-06 11:58] VITALS: BP 117/75; PULSE 92; RESP 16; O2SAT 98
[2022-07-06 12:00] LABS: Urine Appearance Clear (CLEAR); Urine Color Straw (Yellow)
[2022-07-06 12:03] LABS: Bilirubin Urine Neg (Negative); Blood Urine Neg (Negative); Glucose Urine UA Norm (Normal); Ketones Urine Negative (Negative); Leukocyte Esterase Urine Negative (Negative); Nitrate Urine Negative (Negative); Protein Urine Neg (Negative); Specific Gravity, Urine 1.005 (1.005-1.030); Urobilinogen Urine Norm (Negative); pH Urine 7 (5-7)
[2022-07-06 12:03] LABS: Alanine Aminotransferase 16 U/L (0-33); Albumin Level 3.3 g/dL (3.5-5.2); Alkaline Phosphatase 110 U/L (35-105); Aspartate Amino Transferase 16 U/L (0-32); Blood Urea Nitrogen 4 mg/dL (6-20); C Reactive Protein 32.4 mg/L (0.0-4.9); Calcium 8.4 mg/dL (8.5-10.5); Carbon Dioxide 21 mmol/L (22-29); Chloride 106 mmol/L (98-107); Glucose 101 mg/dL (65-115); Lipase 12 U/L (13-60); Osmolality Calculated 283 mOsm/kg (285-295); Sodium 138 mmol/L (136-145); Total Bilirubin 0.3 mg/dL (0.15-1.2); Total Protein 6.3 g/dL (6.6-8.7)
[2022-07-06 12:14] LABS: Anion Gap 14.9 (5-19); Potassium 3.9 mmol/L (3.5-5.1)
--- NOTE | 2022-07-06 12:36 | USR_ITS ---
PROCEDURE INFORMATION: Exam: US Abdomen, Limited; Appendix Exam date and time: 07/06/2022 1:00 PM Age: 27 years old Clinical indication: Abdominal pain; Acute; ; Prior surgery; Surgery date: 6+ months; Surgery type: 3 c sections; Additional info: Eval for appendcitis TECHNIQUE: Imaging protocol: Real time ultrasound of the abdomen with image documentation. Limited exam focused on the appendix. COMPARISON: US transvaginal [id number] 03/27/2022 5:57 PM FINDINGS: Appendix: No evidence of acute appendicitis or right lower quadrant inflammatory process. The appendix is not well visualized US/US appendix [id number] IMPRESSION: 1. The appendix is not visible 2. Otherwise No acute findings.
--- NOTE | 2022-07-06 13:43 | PC.NURSE ---
pt resting in bed, visitor at bedside. denies needs at this time.
[2022-07-06 13:56] VITALS: BP 118/67; PULSE 86; RESP 16; O2SAT 100
== END 2022-07-06 13:59 | disposition home or self-care (01) ==
PROVIDERS: Emergency Provider Emergency Medicine; PCP Obstetrics & Gynecology
DX: O26.892 Other specified pregnancy related conditions, second trimester (principal); R10.30 Lower abdominal pain, unspecified; Z3A.18 18 weeks gestation of pregnancy
CPT/HCPCS: 76705; 76815; 80053; 81003; 83690; 84702; 85025; 86140; 96360; 99285; J7030

== ENCOUNTER → 2022-07-22 09:49 | Outpatient (BNVA) | payer BC, MEDICAID, SELFPAY | PROVIDERS: PCP Obstetrics & Gynecology; Visit Provider Obstetrics & Gynecology | DX: O09.892 Supervision of other high risk pregnancies, second trimester (principal); Z3A.00 Weeks of gestation of pregnancy not specified | CPT/HCPCS: 80307; 81000; 85027; 86592; 86762; 86803; 86850; 87086; 87340; 87491; 87591; 87806 ==

== ENCOUNTER 2022-08-04 19:51 | Outpatient (CLI) | payer BC, MEDICAID, SELFPAY ==
[2022-08-04 19:56] VITALS: BP 124/60; PULSE 78
[2022-08-04 20:04] VITALS: RESP 18
[2022-08-04 20:05] VITALS: BMI 32.9
[2022-08-04 20:20] VITALS: BP 121/59; PULSE 75
[2022-08-04 20:36] VITALS: BP 116/61; PULSE 77
[2022-08-04 20:43] VITALS: RESP 17
== END 2022-08-04 21:04 | disposition home or self-care (01) ==
LOC: OPOB 19:51 → OBGYN 20:00
PROVIDERS: PCP Obstetrics & Gynecology; Visit Provider Obstetrics & Gynecology
DX: O26.899 Other specified pregnancy related conditions, unspecified trimester (principal); Z3A.00 Weeks of gestation of pregnancy not specified; R10.9 Unspecified abdominal pain
CPT/HCPCS: 99211

== ENCOUNTER 2022-08-04 21:03 | Emergency (ER) | payer BC, MEDICAID, SELFPAY ==
[2022-08-04 21:10] VITALS: BP 113/73; PULSE 78; RESP 16; TEMP 36.6; O2SAT 97; BMI 35.0
[2022-08-04 21:29] VITALS: BP 137/65; PULSE 80; RESP 18; TEMP 36.6; O2SAT 97
[2022-08-04 21:57] LABS: Add Urine Microscopic? NO; Charge for UA Resulting for Rev
[2022-08-04 21:59] LABS: Bilirubin Urine 1+ (Negative); Blood Urine Neg (Negative); Glucose Urine UA Norm (Normal); Ketones Urine Negative (Negative); Leukocyte Esterase Urine Negative (Negative); Nitrate Urine Negative (Negative); Protein Urine Neg (Negative); Urine Appearance Clear (CLEAR); Urine Color Yellow (Yellow); Urobilinogen Urine 1 mg/dL (Negative); pH Urine 5 (5-7)
--- NOTE | 2022-08-04 21:59 | ED_ITS ---
HPI - Abdominal Pain General: Chief Complaint: Abdominal Pain Stated Complaint: abdomen pain Time Seen by Provider: 08/04/22 21:49 Source: patient Mode of arrival: ambulatory Limitations: no limitations History of Present Illness: 27-year-old female who is currently 23 weeks states she has been having some epigastric pain over the last 3 days. States it does seem to related when she lays flat where she is. No history of gallbladder issues. States pain is currently 2 out of 10 she was seen at OB already and had baby cleared she has no lower abdominal pain or bleeding. Associated Symptoms: Denies chills, dysuria and fever(s) Related Data: Date of Last Menstrual Period: 02/20/22 Review of Systems Const: Denies: fever(s), chills, body aches or change in appetite Eyes: Denies: blurry vision or eye discomfort ENMT: Denies: throat pain or dental pain Card: Denies: chest pain Resp: Denies: dyspnea GI: Reports: abdominal pain : Denies: dysuria Musc: Denies: neck pain or back pain Skin/Breast: Denies: rash Neuro: Denies: headache(s) Psych: Denies: depression Cleve/Lymph: Denies: easy bruising All/Imm: Denies: urticaria PFSH ED PFSH: Medical History Depression Diagnosed when she was 8-year-old. Not currently on any medication. Last used medication in 2014. Does not see a therapist. No pertinent past medical history Denies diabetes, asthma, hypertension, seizures, DVT/PE PMD: Brooklynn Sainz Surgical History History of section X 3 2013--primary low transverse delivery-Dr. Baron 2014--repeat low transverse delivery[place]. Gustaf[place] [facility] [place]schedule repeat low transverse delivery at 39 weeks-dense additions of bladder onto the uterus. By Dr. Gustafson [place] [facility] [place] History of cystoscopy 2014 cystoscopy with right retrograde ureteropyelogram and right ureteral stone extraction x2 performed by Dr. Sheets Hx of tonsillectomy And adenoidectomy at the age of 6 Family History Father Hypercholesteremia Hypertension Heart disease Grandmother Heart disease maternal Hypercholesteremia Maternal Hypertension maternal Diabetes Maternal Mother Hypercholesteremia Sister Thyroid disease Other Hyperlipidemia Denies family history of Colon cancer Ovarian cancer Breast cancer Uterine cancer Stroke Social History Smoking and tobacco status: never smoked Female Reproductive History: Date of last menstrual period: 02/20/22 Physical Exam Const: COMMON NORMALS: no acute distress, patient oriented x3 and healthy appearing HENMT: COMMON NORMALS: normocephalic and atraumatic HEAD & SCALP: normocephalic and atraumatic Eye: COMMON NORMALS: Equal, round and reactive pupils present and EOMs intact bilaterally PUPIL: Yes Equal, round and reactive pupils present Neck/C-Spine: COMMON NORMALS: full ROM and supple Chest: COMMONS NORMALS: normal inspection of the chest and normal palpation of entire chest wall Resp: COMMON NORMALS: normal respiratory effort, No retractions, No use of accessory muscles and clear to auscultation bilaterally AUSCULTATION: clear to auscultation bilaterally Cardio: COMMON NORMALS: regular rate, regular rhythm and No murmurs present (Cardio) RATE: regular rate RHYTHM: regular rhythm GI: COMMON NORMALS: Normal to inspection, nondistended, normoactive bowel sounds present, Soft to palpation, non-tender and no masses PALPATION: Yes Soft to palpation Extremity: COMMON NORMALS: normal to inspection and full ROM Neuro: COMMON NORMALS: patient oriented x3, moves all extremities and no focal motor deficits Psych: COMMON NORMALS: mental status grossly normal, Normal thought process present and cooperative THOUGHT PROCESS: Normal thought process present Skin: COMMON NORMALS: no rashes or lesions noted and no wounds GENERAL SKIN EXAM: no rashes or lesions noted Course Vital Signs: Vital signs: Vital Signs Temperature 97.9 F 08/04/22 21:29 Pulse Rate 80 08/04/22 21:29 Respiratory Rate 18 08/04/22 21:29 Blood Pressure 137/65 08/04/22 21:29 Pulse Oximetry 97 08/04/22 21:29 Oxygen Delivery Me thod 08/04/22 21:29 MDM - Abdominal Pain Medical Decision Making Patient presents with epigastric abdominal pain could be gastritis ultrasound of her gallbladder and blood flow normal we will start her on Protonix she is to follow-up with her OB she is return if worsening she understands agrees to plan. Lab Data : 08/04/22 22:40 08/04/22 22:40 Labs/Radiology: Laboratory Results WBC 8.2 10^3/uL (4.0-10.0) 08/04/22 22:40 RBC 3.68 10^6/uL (4.1-5.3) L 08/04/22 22:40 Hgb 12.1 g/dL (11.5-15.3) 08/04/22 22:40 Hct 35.3 % (37.0-47.0) L 08/04/22 22:40 MCV 95.9 fl (81-99) 08/04/22 22:40 MCH 32.9 pg (28.0-34.0) 08/04/22 22:40 MCHC 34.3 g/dL (30.0-36.0) 08/04/22 22:40 RDW 12.8 % (12.1-15.1) 08/04/22 22:40 Plt Count 212 10^3/cmm (130-400) 08/04/22 22:40 MPV 9.1 fL (7.4-10.4) 08/04/22 22:40 Neut % (Auto) 62.4 % 08/04/22 22:40 Lymph % (Auto) 29.5 % 08/04/22 22:40 [place] % (Auto) 4.7 % 08/04/22 22:40 Eos % (Auto) 1.5 % 08/04/22:40 Baso % (Auto) 0.4 % 08/04/22 22:40 Neut # (Auto) 5.10 10^3/uL (1.8-7.7) 08/04/22 22:40 Lymph # (Auto) 2.4 10^3/uL (0.8-4.8) 08/04/22 22:40 [place] # (Auto) 0.4 10^3/uL (0.2-0.9) 08/04/22 22:40 Eos # (Auto) 0.1 10^3/uL (0.0-0.8) 08/04/22 22:40 Baso # (Auto) 0.0 10^3/uL (0.0-0.1) 08/04/22 22:40 Nucleated RBC % (auto) 0 % 08/04/22 22:40 Nucleated RBCs # 0.0 /100WBC 08/04/22 22:40 Sodium 137 mmol/L (136-145) 08/04/22 22:40 Potassium 4.0 mmol/L (3.5-5.1) 08/04/22 22:40 Chloride 105 mmol/L (98-107) 08/04/22 22:40 Carbon Dioxide 23 mmol/L (22-29) 08/04/22 22:40 Anion Gap 13.0 (5-19) 08/04/22 22:40 BUN 6 mg/dL (6-20) 08/04/22 22:40 Creatinine 0.5 mg/dL (0.5-0.9) 08/04/22 22:40 GFR Calculation 148.0 mL/min (90-130) H 08/04/22 22:40 Glucose 102 mg/dL (65-115) 08/04/22 22:40 Calculated Osmolality 282 mOsm/kg (285-295) L 08/04/22 22:40 Calcium 8.5 mg/dL (8.5-10.5) 08/04/22 22:40 Total Bilirubin 0.2 mg/dL (0.15-1.2) 08/04/22 22:40 AST 17 U/L (0-32) 08/04/22 22:40 ALT 15 U/L (0-33) 08/04/22 22:40 Alkaline Phosphatase 115 U/L (35-105) H 08/04/22 22:40 Total Protein 6.0 g/dL (6.6-8.7) L 08/04/22 22:40 Albumin 3.1 g/dL (3.5-5.2) L 08/04/22 22:40 Globulin 2.9 g/dL (1.3-4.6) 08/04/22 22:40 Lipase 22 U/L (13-60) 08/04/22 22:40 Urine Color Yellow (Yellow) 08/04/22 20:30 Urine Appearance Clear (CLEAR) 08/04/22 20:30 Urine pH 5 (5-7) 08/04/22 20:30 Ur Specific [place] 1.020 (1.005-1.030) 08/04/22 20:30 Urine Protein Neg (Negative) 08/04/22 20:30 Urine Glucose (UA) Norm (Normal) 08/04/22 20:30 Urine Ketones Negative (Negative) 08/04/22 20:30 Urine Blood Neg (Negative) 08/04/22 20:30 Urine Nitrate Negative (Negative) 08/04/22 20:30 Urine Bilirubin 1+ (Negative) H 08/04/22 20:30 Urine Urobilinogen 1 mg/dL (Negative) H 08/04/22 20:30 Ur Leukocyte Esterase Negative (Negative) 08/04/22 20:30 Discharge Plan Discharge Patient Disposition: Home Clinical Impression: Abdominal pain Condition: Stable Prescriptions: New Protonix 40 mg tablet,delayed release (DR/EC) 40 mg PO DAILY Qty: 60 0RF No Action Fish Oil Concentrate 1,000 mg Capsule 1,000 mg PO QAM Multivitamins 28 mg iron- 800 mcg Tablet 1 tab PO QAM pyridoxine (vitamin B6) 25 mg tablet 25 mg PO TID PRN (Reason: nausea and vomiting) Qty: 30 0RF doxylamine succinate 25 mg tablet 25 mg PO TID PRN (Reason: nausea and vomiting) Qty: 30 0RF Discharge Orders: Discharge ED (Routine); Ordered 08/04/22 Ordered By: Kristian Mccall Referrals: Raheem Boothe FNP [Primary Care Provider] - Discharge Diet: Advance as tolerated Discharge Activity: Resume usual activity Patient Instructions: Abdominal Pain (ED) Coding Level of Care Code ED Foam Dispenser for Chg Fwd Exam Comprehensive
[2022-08-04] MEDS: lidocaine 2% viscous 15 ML, aluminum-mag hydrox-simethicon 30 ML, sucralfate oral liq 1 GM PO (22:15)
--- NOTE | 2022-08-04 22:26 | USR_ITS ---
PROCEDURE INFORMATION: Exam: US Abdomen, Limited; Right Upper Quadrant Exam date and time: 08/04/2022 11:06 PM Age: 27 years old Clinical indication: Abdominal pain; ; Patient HX: Epigastric pain. Npo since 5pm today; Additional info: Abd pain TECHNIQUE: Imaging protocol: Real time ultrasound of the abdomen with image documentation. Limited exam focused on the right upper quadrant. COMPARISON: US appendix [id number] 07/06/2022 1:00 PM FINDINGS: Liver: Normal. No masses. Gallbladder: Normal. No gallstones. There is no gallbladder wall thickening. Biliary ducts: Normal. No stones. No dilation. Pancreas: Visualized pancreas is unremarkable. Right kidney: Normal. No mass. No hydronephrosis. US/US gall bladder [id number] IMPRESSION: No acute findings.
[2022-08-04 22:49] LABS: Basophils % 0.4 %; Eosinophils # 0.1 10^3/uL (0.0-0.8); Eosinophils % 1.5 %; Hematocrit 35.3 % (37.0-47.0); Hemoglobin 12.1 g/dL (11.5-15.3); Lymphocytes # 2.4 10^3/uL (0.8-4.8); Lymphocytes % 29.5 %; Mean Corpuscular HGB Conc 34.3 g/dL (30.0-36.0); Mean Corpuscular Hemoglobin 32.9 pg (28.0-34.0); Mean Corpuscular Volume 95.9 fl (81-99); Mean Platelet Volume 9.1 fL (7.4-10.4); Monocytes # 0.4 10^3/uL (0.2-0.9); Monocytes % 4.7 %; Neutrophils % 62.4 %; Nucleated Red Blood Cells % 0 %; Platelet Count 212 10^3/cmm (130-400); Red Blood Count 3.68 10^6/uL (4.1-5.3); Red Cell Distribution Width 12.8 % (12.1-15.1); White Blood Count 8.2 10^3/uL (4.0-10.0)
[2022-08-04 23:06] LABS: Alanine Aminotransferase 15 U/L (0-33); Albumin Level 3.1 g/dL (3.5-5.2); Alkaline Phosphatase 115 U/L (35-105); Aspartate Amino Transferase 17 U/L (0-32); Blood Urea Nitrogen 6 mg/dL (6-20); Calcium 8.5 mg/dL (8.5-10.5); Carbon Dioxide 23 mmol/L (22-29); Chloride 105 mmol/L (98-107); Globulin 2.9 g/dL (1.3-4.6); Glucose 102 mg/dL (65-115); Lipase 22 U/L (13-60); Osmolality Calculated 282 mOsm/kg (285-295); Sodium 137 mmol/L (136-145); Total Bilirubin 0.2 mg/dL (0.15-1.2)
[2022-08-04 23:30] VITALS: BP 130/60; PULSE 82; RESP 18; TEMP 36.6; O2SAT 97
== END 2022-08-04 23:38 | disposition home or self-care (01) ==
PROVIDERS: Emergency Provider Emergency Medicine; PCP Nurse Practitioner Family
DX: R10.9 Unspecified abdominal pain (principal)
CPT/HCPCS: 76705; 80053; 81003; 83690; 85025; 99284

== ENCOUNTER → 2022-08-06 08:03 | Outpatient (BNVA) | payer BC, MEDICAID, SELFPAY | PROVIDERS: PCP Nurse Practitioner Family; Visit Provider Obstetrics & Gynecology | DX: Z36.9 Encounter for antenatal screening, unspecified (principal) | CPT/HCPCS: 76805 ==

== ENCOUNTER → 2022-08-12 14:15 | Outpatient (BNVA) | payer BC, MEDICAID, SELFPAY | PROVIDERS: PCP Nurse Practitioner Family; Visit Provider Obstetrics & Gynecology | DX: O09.92 Supervision of high risk pregnancy, unspecified, second trimester (principal); O34.219 Maternal care for unspecified type scar from previous cesarean delivery; Z30.2 Encounter for sterilization; O09.32 Supervision of pregnancy with insufficient antenatal care, second trimester; Z3A.00 Weeks of gestation of pregnancy not specified | CPT/HCPCS: 81000; 82950 ==

== ENCOUNTER → 2022-09-10 14:00 | Outpatient (BNVA) | payer BC, MEDICAID, SELFPAY | PROVIDERS: PCP Nurse Practitioner Family; Visit Provider Obstetrics & Gynecology | DX: O09.92 Supervision of high risk pregnancy, unspecified, second trimester (principal); Z3A.00 Weeks of gestation of pregnancy not specified | CPT/HCPCS: 81000; 85027; 87086 ==

== ENCOUNTER → 2022-09-23 10:25 | Outpatient (BNVA) | payer BC, MEDICAID, SELFPAY | PROVIDERS: PCP Nurse Practitioner Family; Visit Provider Obstetrics & Gynecology | DX: O09.92 Supervision of high risk pregnancy, unspecified, second trimester (principal); Z3A.00 Weeks of gestation of pregnancy not specified | CPT/HCPCS: 81000 ==

== ENCOUNTER → 2022-10-07 10:28 | Outpatient (BNVA) | payer BC, MEDICAID, SELFPAY | PROVIDERS: PCP Nurse Practitioner Family; Visit Provider Obstetrics & Gynecology | DX: O09.90 Supervision of high risk pregnancy, unspecified, unspecified trimester (principal); Z3A.00 Weeks of gestation of pregnancy not specified | CPT/HCPCS: 81000; 87086 ==

== ENCOUNTER 2022-10-09 15:36 | Outpatient (CLI) | payer BC, MEDICAID, SELFPAY ==
[2022-10-09 16:33] LABS: Total Volume, Urine 1300 mL
[2022-10-09 17:34] LABS: Urine Total Protein 7.1 mg/dL (0-150); Urine Total Protein 24 Hour 92.3 mg/24hr (0-150)
== END 2022-10-09 15:37 | disposition home or self-care (01) ==
PROVIDERS: PCP Nurse Practitioner Family; Visit Provider Obstetrics & Gynecology
DX: R31.9 Hematuria, unspecified (principal)
CPT/HCPCS: 84156

== ENCOUNTER → 2022-10-22 13:08 | Outpatient (BNVA) | payer BC, MEDICAID, SELFPAY | PROVIDERS: PCP Nurse Practitioner Family; Visit Provider Nurse Practitioner Women's Health | DX: O09.90 Supervision of high risk pregnancy, unspecified, unspecified trimester (principal); Z30.2 Encounter for sterilization; O34.219 Maternal care for unspecified type scar from previous cesarean delivery; O09.30 Supervision of pregnancy with insufficient antenatal care, unspecified trimester; F32.9 Major depressive disorder, single episode, unspecified; Z3A.00 Weeks of gestation of pregnancy not specified | CPT/HCPCS: 81000 ==

== ENCOUNTER → 2022-11-04 11:40 | Outpatient (BNVA) | payer BC, MEDICAID, SELFPAY | PROVIDERS: PCP Nurse Practitioner Family; Visit Provider Obstetrics & Gynecology | DX: O09.90 Supervision of high risk pregnancy, unspecified, unspecified trimester (principal) | CPT/HCPCS: 81000; 87081 ==

== ENCOUNTER → 2022-11-11 10:28 | Outpatient (BNVA) | payer BC, MEDICAID, SELFPAY | PROVIDERS: PCP Nurse Practitioner Family; Visit Provider Obstetrics & Gynecology | DX: O09.90 Supervision of high risk pregnancy, unspecified, unspecified trimester (principal); Z3A.22 22 weeks gestation of pregnancy | CPT/HCPCS: 81000 ==

== ENCOUNTER → 2022-11-26 14:10 | Outpatient (BNVA) | payer BC, MEDICAID, SELFPAY | PROVIDERS: PCP Nurse Practitioner Family; Visit Provider Nurse Practitioner Women's Health | DX: O09.90 Supervision of high risk pregnancy, unspecified, unspecified trimester (principal); Z30.2 Encounter for sterilization; O34.219 Maternal care for unspecified type scar from previous cesarean delivery; F32.9 Major depressive disorder, single episode, unspecified; O99.820 Streptococcus B carrier state complicating pregnancy; Z3A.00 Weeks of gestation of pregnancy not specified | CPT/HCPCS: 81000 ==

== ENCOUNTER 2022-11-27 05:18 | Inpatient (IN) | payer BC, MEDICAID, SELFPAY ==
--- NOTE | 2022-11-11 08:31 | P.ANESASSM_ITS ---
Pre-Anesthetic Assessment Height/Weight: Height 1.57 m Preop Diagnosis: IUP Operation Date: 11/27/22 07:00 Proposed Procedures p Repeat section, bilateral tubal 91697 N39.3(Bilateral) - Murray Medina MD Familial anesthetic complications: Providers have had moderate difficulty doing epidural/spinal prior due to patient having trouble positioning herself (unable to arch back out appropriately) Social No alcohol and No tobacco Exam alert, oriented x 3, clear to auscultation bilaterally and regular rate & rhythm Airway Mallampati: Class II Dentition: full Pulmonary None reported CV/HEM None reported None reported Hepatic None reported GI Gastroesophageal Reflux Disease Metabolic None reported Musc/skel None reported Neuropsych None reported Anesthetic Plan ASA status: 2 Anesthesia: Regional (specify below) (spinal) Risk of > 500 ml blood loss (7ml/kg in children): No Other Pertinent Information hx failure to progress Medications/Allergies Home Medications Medication Instructions Recorded Confirmed Last Taken Type omega-3 fatty acids 1,000 mg 1,000 mg PO QAM 06/20/22 11/04/22 06/18/22 History capsule vit no.95-ferrous 1 tab PO QAM 06/20/22 11/04/22 06/19/22 History fumarate 28 mg-folic acid 800 mcg tablet ( Multivitamins) pyridoxine (vitamin B6) 25 mg 25 mg PO TID PRN nausea and 06/20/22 11/04/22 Unknown Rx tablet vomiting #30 tabs pantoprazole 40 mg tablet,delayed 40 mg PO DAILY #60 tabs 08/04/22 11/04/22 Unknown Rx release (Protonix) Allergies Allergy/AdvReac Type Severity Reaction Status Date / Time No Known Allergies Allergy Verified 11/04/22 11:36 [facility] Anesthesia Medical History Depression Diagnosed when she was 8-year-old. Not currently on any medication. Last used medication in 2014. Does not see a therapist. No pertinent past medical history Denies diabetes, asthma, hypertension, seizures, DVT/PE PMD: Brooklynn Sainz Surgical History History of section X 3 2013--primary low transverse delivery-Dr. Baron 2014--repeat low transverse [place] [facility] [place]schedule repeat low transverse delivery at 39 weeks-dense additions of bladder onto the uterus. By Dr. Gustaf[place] [facility] [place] History of cystoscopy 2014 cystoscopy with right retrograde ureteropyelogram and right ureteral stone extraction x2 performed by Dr. Sheets Hx of tonsillectomy And adenoidectomy at the age of 6 Family History Father Hypercholesteremia Hypertension Heart disease Grandmother Heart disease maternal Hypercholesteremia Maternal Hypertension maternal Diabetes Maternal Mother Hypercholesteremia Sister Thyroid disease Other Hyperlipidemia Denies family history of Colon cancer Ovarian cancer Breast cancer Uterine cancer Stroke Social History Smoking and tobacco status: never smoked Female Reproductive History Date of last menstrual period: 02/20/22 Data Anesthesia Cardiac Studies: 2 No Data to Display
[2022-11-27] VITALS (18 sets, daily range): BP systolic 98–128; BP diastolic 50–97; PULSE 62–105; RESP 16–18; TEMP 36.1–36.7; O2SAT 97–100; BMI 37.6
[2022-11-27 05:46] LABS: Basophils % 0.5 %; Eosinophils # 0.1 10^3/uL (0.0-0.8); Hematocrit 34.9 % (37.0-47.0); Hemoglobin 11.2 g/dL (11.5-15.3); Lymphocytes # 2.3 10^3/uL (0.8-4.8); Lymphocytes % 26.9 %; Mean Corpuscular HGB Conc 32.1 g/dL (30.0-36.0); Mean Corpuscular Hemoglobin 28.6 pg (28.0-34.0); Mean Corpuscular Volume 89.3 fl (81-99); Mean Platelet Volume 8.6 fL (7.4-10.4); Monocytes # 0.6 10^3/uL (0.2-0.9); Monocytes % 6.6 %; Neutrophils # 5.39 10^3/uL (1.8-7.7); Neutrophils % 64.4 %; Nucleated Red Blood Cells % 0 %; Platelet Count 193 10^3/cmm (130-400); Red Blood Count 3.91 10^6/uL (4.1-5.3); Red Cell Distribution Width 13.1 % (12.1-15.1); White Blood Count 8.4 10^3/uL (4.0-10.0)
[2022-11-27] MEDS: lactated ringers 1,000 ML 999 ML IV (05:49)
[2022-11-27] MEDS: citric acid-sodium citrate 30 mL UDC PO (06:55)
[2022-11-27] MEDS: metoclopramide 5 mg/mL SDV 2 mL 10 MG IVP (06:55)
[2022-11-27] MEDS: famotidine 20 mg/2 mL INJ IVP (06:55)
[2022-11-27] MEDS: ceFAZolin 2,000 MG in sodium chloride 0.9% (plus) 50 ML 100 MG IV (06:57)
--- NOTE | 2022-11-27 07:00 | PM.OPHPUD ---
Labor & Delivery H&P Update Date of Procedure: January 06, 2023 Date H&P Performed: 11/26/22 H&P update information: I have reviewed H&P completed within last 30 days, I have examined patient prior to procedure and No changes to prior documentation Admission Diagnosis: Preop diagnosis: IUP Planned procedure: Operation Date: 11/27/22 07:00 Proposed Procedures p Repeat section, bilateral tubal 46503 N39.3(Bilateral) - Murray Medina MD
--- NOTE | 2022-11-27 07:50 | P.ANESUD_ITS ---
Pre-Anesthetic Update Pre-Anesthetic Assessment: Date of Surgery/Procedure: 11/27/22 Preop Ama gnosis: IUP Proposed Procedure: Operation Date: 11/27/22 07:00 Proposed Procedures p Repeat section, bilateral tubal 73522 N39.3(Bilateral) - Murray Medina MD Any changes to Pre-Anesthetic Assessment?: No Last Intake: Intake Last Liquid Date 11/26/22 Last Liquid Time 23:00 Last Solid Date 11/26/22 Last Solid Time 21:00 Labs Last 48hrs: Short CBC 11/27/22 Range/Units 05:38 WBC 8.4 (4.0-10.0) 10^3/ uL Hgb 11.2 L (11.5-15.3) g/dL Hct 34.9 L (37.0-47.0) % MCV 89.3 (81-99) fl Plt Count 193 (130-400) 10^3/c mm Neut % (Auto) 64.4 % Neut # (Auto) 5.39 (1.8-7.7) 10^3/u L Vitals: Pulse Rate 105 H 11/27/22 05:33 Pulse Rhythm 11/27/22 05:58 Pulse Strength 3+ Normal 11/27/22 05:58 Respiratory Rate 16 11/27/22 05:23 Respiratory Effort Non-Labored 11/27/22 05:58 Respiratory Depth Normal 11/27/22 05:58 Respiratory Patter n 11/27/22 05:58 Blood Pressure 124/76 11/27/22 05:33 Oxygen Delivery Me thod 11/27/22 05:58 Exam: Pre-Anes Outpt Exam: alert, oriented x 3, clear to auscultation bilaterally and regular rate & rhythm Cardiac Studies: No Data to Display
--- NOTE | 2022-11-27 08:46 | PM.OP ---
Operative Report Date of procedure: November 27, 2022 Pre-op diagnosis: Preop Diagnosis IUP at 39 weeks previous delivery x3 Post-op diagnosis: Same as above Procedure done: Repeat low transverse delivery Surgeon: Murray Medina MD Estimated blood loss (mL): 500 Procedure: After assuring informed consent, the patient was taken to the operating room and anesthesia was initiated. She was placed in the dorsal supine position with a left lateral tilt. The abdomen was prepped and draped in the usual sterile manner. A time-out procedure was performed. A Pfannenstiel skin incision was made with the scalpel and carried through to the underlying layer of fascia with the Bovie. The fascia was nicked in the midline and the incision extended laterally with the Quevedo scissors. The superior aspect of the fascial incision was then grasped with Rashawn clamps and elevated and the underlying rectus muscle dissected off bluntly and sharp with quevedo scissors dense adhesions. Attention was then turned to the inferior aspect of the incision which, in similar fashion, was grasped and tented up with Rashawn clamps and the rectus muscle dissected bluntly. The rectus muscles were then in the midline and the peritoneum identified, tented up and entered sharply with Metzenbaum scissors. The peritoneal incision was then extended superiorly and inferiorly with good visualization of the bladder. The Alon O retractor was then inserted and the vesicouterine peritoneum identified, grasped with pickups and entered sharply with Metzenbaum scissors. This incision was then extended laterally and the bladder flap created digitally. The uterus was incised in a low transverse fashion with the scalpel. The uterine incision was then extended with the bandage scissors. The bladder blade was removed and the was then delivered in the cephalic presentation vacuum assisted atraumatically. The nose and the mouth were suctioned with bulb and the cord clamped and cut. The cord was normal and had three vessels. Amniotic fluid was clear. The placenta was then removed manually and the uterus exteriorized and cleared of all clots and debris. The uterine incision was repaired with 0 Vicryl in a running-locked fashion. A second layer of the same suture was used to obtain excellent hemostasis. The gutters were cleared of all clots. The uterus was then returned to the abdomen. The rectus muscles were approximated with 3-0 chromic gut. The fascia was reapproximated with 0 Vicryl in an interrupted running fashion. The skin was closed with Insorb?s subcuticular absorbable precious. The incision area was infiltrated with Exparel for pain management. The patient tolerated the procedure well. The sponge, lap and needle counts were correct times three.
--- NOTE | 2022-11-27 08:53 | ANE.PACU2 ---
Inpatient post-anesthesia follow up: Airway intact: Yes Vital signs: Temperature 97 Pulse Rate 105 Respiratory Rate 16 Blood Pressure 124/57 Pulse Oximetry 100 Oxygen Delivery Me thod Room Air Oxygen Flow Rate Fraction of Inspir ed Oxygen Hydration adequate: Yes Nausea and vomiting: No Pain level: 0 Mental status: Baseline
[2022-11-27] MEDS: dextrose 5%-lactated ringers 1,000 ML 125 ML IV ×2 (10:55→18:04)
[2022-11-27] MEDS: acetaminophen 325 mg Tablet 650 MG PO (11:46)
--- NOTE | 2022-11-27 13:46 | ANE.PACU2 ---
Inpatient post-anesthesia follow up: Airway intact: Yes Vital signs: Temperature 97.8 F Pulse Rate 78 Respiratory Rate 18 Blood Pressure 120/60 Pulse Oximetry 100 Oxygen Delivery Me thod Room Air Oxygen Flow Rate Fraction of Inspir ed Oxygen Hydration adequate: Yes Nausea and vomiting: No Pain level: 1 Mental status: Baseline
[2022-11-27] MEDS: ketorolac 30 mg/mL INJ IVP ×2 (14:24→20:36)
[2022-11-27] MEDS: HYDROcodone-acetaminophen 5-325 mg Tablet PO ×2 (14:25→18:43)
--- NOTE | 2022-11-27 16:06 | PC.NURSE ---
Assisted pt to side of bed and then up to chair. Pt did not tolerate well. Pt was having pain and burning at incision site. Jasmin pad and mesh underwear were placed on pt. Instructed pt to not get out of chair without help and to call when shes ready to get up. Instructed pt on use of IS.
[2022-11-27] MEDS: docusate sodium 100 mg Capsule PO (18:04)
[2022-11-27] MEDS: ferrous sulfate EC 325 mg Tablet PO (20:35)
[2022-11-27 21:03] LABS: Hematocrit 30.3 % (37.0-47.0); Hemoglobin 9.6 g/dL (11.5-15.3); Mean Corpuscular HGB Conc 31.7 g/dL (30.0-36.0); Mean Corpuscular Hemoglobin 28.9 pg (28.0-34.0); Mean Corpuscular Volume 91.3 fl (81-99); Mean Platelet Volume 8.9 fL (7.4-10.4); Platelet Count 167 10^3/cmm (130-400); Red Blood Count 3.32 10^6/uL (4.1-5.3); Red Cell Distribution Width 13.1 % (12.1-15.1); White Blood Count 8.2 10^3/uL (4.0-10.0)
[2022-11-28] MEDS: HYDROcodone-acetaminophen 5-325 mg Tablet PO ×6 (01:46→23:39)
[2022-11-28] MEDS: ketorolac 30 mg/mL INJ IVP (02:47)
[2022-11-28 05:43] VITALS: BP 100/68; PULSE 76; RESP 18; TEMP 36.6; TEMP 36.7; O2SAT 98
[2022-11-28] MEDS: lanolin oint 7 gm 1 APPLIC TOPICAL (05:45)
[2022-11-28] MEDS: prenatal vitamin Capsule 1 CAP PO (08:21)
[2022-11-28] MEDS: ibuprofen 800 mg tablet PO ×3 (08:21→20:29)
[2022-11-28] MEDS: docusate sodium 100 mg Capsule PO ×2 (08:21→19:24)
[2022-11-28] MEDS: ferrous sulfate EC 325 mg Tablet PO ×2 (08:21→19:24)
--- NOTE | 2022-11-28 08:47 | PM.PN ---
Subjective Subjective: Ms. Batista is a 27 year old status post low-transverse delivery postoperative day 1. Vitals/I&O/Wt Last Vital Signs Temp 98.0 F 11/28/22 05:43 Pulse 76 11/28/22 05:43 Resp 18 11/28/22 05:43 BP 100/68 11/28/22 05:43 Pulse Ox 98 11/28/22 05:43 O2 Del Method 11/28/22 05:43 11/27/22 11/28/22 11/28/22 22:59 06:59 14:59 Intake Total 1337.5 / 2287.5 Output Total 300 / 1250 1000 / 2250 Balance 1037.5 / 1037.5 -1000 / 37.5 Weight last 48 hrs Weight 93.44 kg Physical Exam Narrative: GA; alert and oriented x 3 HEENT: normal Breasts: engorged Nipples - skin intact Lungs; clear to auscultation Heart: regular rhythm, no murmurs. Abd: Appropriately tender. BS+. Uterine fundus below umbilicus. No Fundal Tenderness. The incision clean and dry, no redness, pain or edema. Perineum: normal lochia. Extremities: no edema, no cyanosis, no tenderness. Urinary Catheter Management: Nagel: Cath Placed During This Visit: yes, but has since been removed by the nurse Reason for Continuing Indwelling Catheter: Decision to DC Catheter Urinary Catheter Date of Insertion: 11/27/22 Urinary Catheter Time of Insertion: 07:30 Date Urinary Catheter Removed: 11/27/22 Time Urinary Catheter Discontinued: 21:00 Data 11/27/22 20:35 A&P Assessment and plan (1) Term delivered: (2) Status post repeat low transverse section: Status post low transverse delivery postoperative day 1. Afebrile and hemodynamically stable. Tolerating diet well. Ambulating without difficulty. Attestations Medical Necessity Statement*: In my professional opinion per admitting diagnosis Coding Level of Care Code Acute Code for Chg Fwd Diagnoses Term delivered O80 Status post repeat low transverse section Z98.891
[2022-11-28 09:16] VITALS: BP 117/78; PULSE 75; RESP 16; TEMP 36.8; O2SAT 98
[2022-11-28 16:58] VITALS: BP 128/78; PULSE 87; RESP 18; TEMP 36.7; O2SAT 98
[2022-11-28 20:31] VITALS: BP 126/80; PULSE 86; RESP 16; TEMP 36.6; O2SAT 98
[2022-11-29] MEDS: HYDROcodone-acetaminophen 5-325 mg Tablet PO ×2 (03:46→08:03)
[2022-11-29 05:09] VITALS: BP 118/77; PULSE 83; RESP 16; TEMP 36.8; O2SAT 96
--- NOTE | 2022-11-29 08:00 | P.DS_ITS ---
Discharge Providers CLIENT SERVICE SUPERVISOR Date of Admission: 11/27/22 05:18 Date of Discharge: 11/29/22 Attending Provider at Admission: Murray Medina MD Attending Provider at Discharge: Murray Medina MD Primary CLIENT SERVICE SUPERVISOR: Murray Medina MD Primary Care Provider: Raheem Boothe Diagnoses at Discharge Discharge Diagnosis (1) Term delivered: Status: Acute (2) Status post repeat low transverse section: Status: Acute Reason for Visit Reason for Visit: JEAN CARLOS 11/27/2022 Hospital Course Hospital Course Mrs. Batista 27-year-old female with an intrauterine at term admitted for plan low-transverse repeat delivery and bilateral partial salpingectomy. The procedures were performed without complications. Postop observation has been uneventful. She is afebrile and hemodynamically stable postoperative day 2. Tolerating diet well. Ambulating without difficulty. She was counseled regarding pelvic rest for 6 weeks (no sex, no tampons, no vaginal douches). Return to the emergency room if any fever, increased bleeding or pain. Information Peripartum Data: Delivery Method: Physical Exam Narrative: GA; alert and oriented x 3 HEENT: normal Breasts: engorged Nipples - skin intact Lungs; clear to auscultation Heart: regular rhythm, no murmurs. Abd: Appropriately tender. BS+. Uterine fundus below umbilicus. No Fundal Tenderness. Incision clean and dry, no redness, pain or edema. Perineum: normal lochia. Extremities: no edema, no cyanosis, no tenderness. Urinary Catheter Management: Nagel: Cath Placed During This Visit: yes, but has since been removed by the nurse Reason for Continuing Indwelling Catheter: Decision to DC Catheter Urinary Catheter Date of Insertion: 11/27/22 Urinary Catheter Time of Insertion: 07:30 Date Urinary Catheter Removed: 11/27/22 Time Urinary Catheter Discontinued: 21:00 History History History 5 Term 3 0 Miscarriages/Ectopic 1 Living Children 3 Discharge Data Studies Completed and Pending Completed Studies During Hospitalization Category Date Time Status Pathology: Surgical [PTH] Routine Pth 11/27/22 10:03 Completed Laboratory Results WBC 8.2 10^3/uL (4.0-10.0) 11/27/22 20:35 RBC 3.32 10^6/uL (4.1-5.3) L 11/27/22 20:35 Hgb 9.6 g/dL (11.5-15.3) L 11/27/22 20:35 Hct 30.3 % (37.0-47.0) L 11/27/22 20:35 MCV 91.3 fl (81-99) 11/27/22 20:35 MCH 28.9 pg (28.0-34.0) 11/27/22 20:35 MCHC 31.7 g/dL (30.0-36.0) 11/27/22 20:35 RDW 13.1 % (12.1-15.1) 11/27/22 20:35 Plt Count 167 10^3/cmm (130-400) 11/27/22 20:35 MPV 8.9 fL (7.4-10.4) 11/27/22 20:35 Neut % (Auto) 64.4 % 11/27/22 05:38 Lymph % (Auto) 26.9 % 11/27/22 05:38 Crisp % (Auto) 6.6 % 11/27/22 05:38 Eos % (Auto) 1.0 % 11/27/22 05:38 Baso % (Auto) 0.5 % 11/27/22 05:38 Neut # (Auto) 5.39 10^3/uL (1.8-7.7) 11/27/22 05:38 Lymph # (Auto) 2.3 10^3/uL (0.8-4.8) 11/27/22 05:38 Crisp # (Auto) 0.6 10^3/uL (0.2-0.9) 11/27/22 05:38 Eos # (Auto) 0.1 10^3/uL (0.0-0.8) 11/27/22 05:38 Baso # (Auto) 0.0 10^3/uL (0.0-0.1) 11/27/22 05:38 Nucleated RBC % (auto) 0 % 11/27/22 05:38 Nucleated RBCs # 0.0 /100WBC 11/27/22 05:38 Vitals Last Vital Signs Temp 98.3 F 11/29/22 05:09 Pulse 83 11/29/22 05:09 Resp 16 11/29/22 05:09 BP 118/77 11/29/22 05:09 Pulse Ox 96 11/29/22 05:09 O2 Del Method 11/29/22 05:09 Discharge Plan Discharge Patient Disposition: Home Condition: Stable Prescriptions: New hydrocodone-acetaminophen 5-325 mg tablet 1 tab PO Q4H PRN (Reason: pain) Qty: 20 0RF acetaminophen 325 mg capsule 325 mg PO Q4H PRN (Reason: fever or pain) Qty: 60 0RF docusate sodium [Colace] 100 mg capsule 100 mg PO BID Qty: 60 0RF ferrous sulfate [Iron (ferrous sulfate)] 325 mg (65 mg iron) tablet 325 mg PO BID Qty: 60 0RF ibuprofen 800 mg tablet 800 mg PO TID PRN (Reason: pain) Qty: 60 0RF Continued Fish Oil Concentrate 1,000 mg Capsule 1,000 mg PO QAM Multivitamins 28 mg iron- 800 mcg Tablet 1 tab PO QAM pyridoxine (vitamin B6) 25 mg tablet 25 mg PO TID PRN (Reason: nausea and vomiting) Qty: 30 0RF Protonix 40 mg tablet,delayed release (DR/EC) 40 mg PO DAILY Qty: 60 0RF Discharge Orders: Discharge Order (Routine); Ordered 11/29/22 Ordered By: Murray Medina Referrals: Murray Medina MD [Physician] - 2 weeks Discharge Diet: Usual diet Discharge Activity: Limit activity as instructed Patient Instructions: Opioid Safety, (GEN), Caring for Your Baby (GEN), Your 's Appearance (GEN), Choosing Between Vaginal After C- Section () or Repeat... (GEN), TTN (Transient Tachypnea of ) (GEN), Female Sterilization, Tubal Ligation (GEN), Salpingectomy (GEN) Activity Restrictions/Additional Instructions: 1. Please call [facility] on next working day to make your post-operative appointment in 2 weeks. 2. Please stay home until you come back to the clinic on first post-operative check up. 3. Please follow instructions on your medications CAREFULLY. 4. If you have abdominal incision, do not cover it unless dressing is necessary because of drainage. OK to shower, but avoid bath. Leave steri-strips until they fall off. If they are still on one week after surgery, you may remove them. 5. If you had vaginal surgery or vaginal repair, Dr. Medina may instruct you to take SITZ bath. 6. Yellow, blood tinged odorous vaginal discharge is usually normal after hys terectomy or vaginal surgeries. 7. No sexual intercourse, tampons, or douches until you are completely released from the post-operative care. 8. Avoid constipation by eating right and maybe using some Metamucil or Milk of Magnesia. 9. All prescription refills are given during the working hours. Please do no wait till it runs out. Call the clinic at [phone] before your medication runs out. The clinic will get in touch with your doctor to prescribe medications if necessary. 10. Please remain within 40 mile radius from our hospital because emergencies do happen now and then during the post-operative period. 11. If you have stairs at home, take one step at a time slowly and minimize the number of trips. It helps to stay in one floor for the next few days. No lifting except what you can lift by one hand until you are released from the post-operative care. 12. Driving is discouraged until you are well healed. It may be 3-4 weeks before you feel strong enough to drive. You should be able to turn and look through the rear window without pain and you should be able to push the brake pedal very hard without pain before you drive. No fast rules, but SAFETY should be your primary concern. DO NOT drive if you are on sedating medications such as narcotics. 13. Call the clinic (during working hours) to make urgent appointment or go to the Emergency room, if any of the following occurs: i. Vaginal bleeding becomes heavy, more than a period. ii. Incision becomes red and sore, or drains pus. iii. Your temperature is over 100.4 or you have chill. iv. IV site becomes red and swollen (a little ``knot?? is usually OK) v. Persistent nausea and vomiting vi. Persistent constipation or diarrhea vii. Rash or allergic reaction to medications. Discharge Attestations CLIENT SERVICE SUPERVISOR Time Spent in Discharge Care*: greater than 30 min Coding Level of Care Code Acute Code for Chg Fwd Diagnoses Term delivered O80 Status post repeat low transverse section Z98.891
[2022-11-29] MEDS: ferrous sulfate EC 325 mg Tablet PO (08:03)
[2022-11-29] MEDS: docusate sodium 100 mg Capsule PO (08:03)
[2022-11-29] MEDS: prenatal vitamin Capsule 1 CAP PO (08:03)
[2022-11-29] MEDS: ibuprofen 800 mg tablet PO (08:03)
[2022-11-29 10:27] VITALS: BP 112/71; PULSE 92; RESP 16; TEMP 36.9; O2SAT 92
[2022-11-29 10:30] VITALS: BP 112/71; PULSE 92; RESP 16; TEMP 36.9; O2SAT 92
== END 2022-11-29 11:00 | disposition home or self-care (01) | DRG 785 ==
PROVIDERS: Admitting Provider Obstetrics & Gynecology; PCP Nurse Practitioner Family; Visit Provider Obstetrics & Gynecology
PROC: 10D00Z1 Extraction of Products of Conception, Low, Open Approach (ICD-10-PCS; CPT 59514; principal; 2022-11-27 07:00)
DX: O34.211 Maternal care for low transverse scar from previous cesarean delivery (principal); Z3A.39 39 weeks gestation of pregnancy; Z37.0 Single live birth; Z30.2 Encounter for sterilization
CPT/HCPCS: 36415; 51702; 59025; 59409; 85025; 85027; 88302; 96374; 96376; 98960; C9290; J0690; J1885; J2274; J2405; J2590; J2765; J3010; J3490; J7030; J7120; J7121

== ENCOUNTER 2023-02-09 09:11 | Emergency (ER) | payer BC, MEDICAID, SELFPAY ==
[2023-02-09 09:45] VITALS: BP 126/85; PULSE 77; TEMP 36.6; O2SAT 99; BMI 34.7
[2023-02-09 10:44] LABS: Basophils % 0.2 %; Eosinophils # 0.1 10^3/uL (0.0-0.8); Eosinophils % 0.7 %; Hematocrit 46.8 % (37.0-47.0); Hemoglobin 14.7 g/dL (11.5-15.3); Lymphocytes # 1.4 10^3/uL (0.8-4.8); Lymphocytes % 15.3 %; Mean Corpuscular HGB Conc 31.4 g/dL (30.0-36.0); Mean Corpuscular Hemoglobin 28.8 pg (28.0-34.0); Mean Corpuscular Volume 91.6 fl (81-99); Mean Platelet Volume 9.1 fL (7.4-10.4); Monocytes # 0.5 10^3/uL (0.2-0.9); Monocytes % 5.6 %; Neutrophils % 77.9 %; Nucleated Red Blood Cells % 0 %; Platelet Count 202 10^3/cmm (130-400); Red Blood Count 5.11 10^6/uL (4.1-5.3); Red Cell Distribution Width 12.7 % (12.1-15.1); White Blood Count 9.1 10^3/uL (4.0-10.0)
[2023-02-09 10:54] LABS: HCG, Serum Qual Negative (Negative)
[2023-02-09 11:05] LABS: Alanine Aminotransferase 46 U/L (0-33); Albumin Level 4.3 g/dL (3.5-5.2); Alkaline Phosphatase 84 U/L (35-105); Anion Gap 14.9 (5-19); Aspartate Amino Transferase 24 U/L (0-32); Blood Urea Nitrogen 12 mg/dL (6-20); Calcium 8.6 mg/dL (8.5-10.5); Carbon Dioxide 21 mmol/L (22-29); Chloride 107 mmol/L (98-107); Creatinine Clr Calc Pharmacy 122.9844; Globulin 2.9 g/dL (1.3-4.6); Glomerular Filtration Rate 100.4 mL/min (90-130); Glucose 97 mg/dL (65-115); Lipase 19 U/L (13-60); Osmolality Calculated 288 mOsm/kg (285-295); Potassium 3.9 mmol/L (3.5-5.1); Sodium 139 mmol/L (136-145); Total Bilirubin 0.3 mg/dL (0.15-1.2); Total Protein 7.2 g/dL (6.6-8.7)
[2023-02-09 11:13] VITALS: BP 115/86; PULSE 87; RESP 16; O2SAT 100
[2023-02-09 11:58] LABS: Add Urine Microscopic? YES; Bilirubin Urine 1+ (Negative); Blood Urine 3+ (Negative); Glucose Urine UA Norm (Normal); Ketones Urine 1+ (Negative); Leukocyte Esterase Urine 1+ (Negative); Nitrate Urine Negative (Negative); Protein Urine 3+ (Negative); RBC Urine TOO NUMEROUS TO CNT /hpf (0-2); Urine Appearance Bloody (CLEAR); Urine Color Red (Yellow); Urobilinogen Urine 1 mg/dL (Negative); pH Urine 5 (5-7)
[2023-02-09 11:59] LABS: Add Urine Culture? Yes; Bacteria Urine 1+ /hpf; Squamous Epithelial Cell Urine 0-4 /hpf (0-5); WBC Urine 15-25 /hpf (0-5)
--- NOTE | 2023-02-09 12:43 | ED_ITS ---
HPI - Abdominal Pain General: Chief Complaint: Abdominal Pain Stated Complaint: abd cramping Time Seen by Provider: 02/09/23 10:05 History of Present Illness: This is a 27-year-old female that presents to the emergency department with upper quadrant abdominal pain x2 weeks with nausea vomiting and diarrhea. Patient is 3 months from a . She developed these new s ymptoms that have progressively worsened over the last 2 weeks. Incidentally, patient began her menstrual cycle 2 days ago. Patient denies fever or chills. She denies chest pain or shortness of breath. Associated Symptoms: Reports bloating, GI cramping, diarrhea, nausea and vomiting; Denies chills, constipation, dysuria, fever(s), hematochezia, hematuria and hematemesis Review of Systems General: Reports: 10 or more systems reviewed and unremarkable except in HPI and below Const: Denies: fever(s), chills, change in appetite, change in weight, fatigue or malaise Eyes: Denies: change in vision, eye discomfort, eye discharge or eye redness ENMT: Denies: throat pain, enlarged tonsils, odynophagia, hoarseness, ear or mastoid pain, ear discharge, change in hearing, tinnitus, nasal discharge, nasal congestion, post nasal drip or sinus pain Card: Denies: chest pain, palpitations, irregular heart rhythm, edema, dyspnea on exertion, orthopnea or leg pain with exertion Resp: Denies: dyspnea, productive cough, non-productive cough, wheezing, stridor or chest congestion GI: Reports: abdominal pain, nausea, vomiting, diarrhea, bloating and GI cramping; Denies: hematemesis, dysphagia, constipation or hematochezia : Denies: flank pain, difficulty voiding, dysuria, urinary frequency, urinary urgency, urinary hesitancy, oliguria or hematuria Musc: Denies: neck pain, back pain, extremity pain, joint pain, joint swelling, joint redness, joint warmth or muscle weakness Skin/Breast: Denies: rash, pruritus, erythema, photosensitivity or new lesions Neuro: Denies: headache(s), numbness in extremities, weakness in extremities, sensory changes, lack of coordination, difficulty walking, frequent falls, dizziness, confusion, Slurred speech present, difficulty communicating thoughts, seizure-like activity or involuntary movements Endo: Denies: polyuria, polydipsia or tired all the time Cleve/Lymph: Denies: easy bruising or easy bleeding PFSH ED PFSH: Medical History Depression Diagnosed when she was 8-year-old. Not currently on any medication. Last used medication in 2014. Does not see a therapist. No pertinent past medical history Denies diabetes, asthma, hypertension, seizures, DVT/PE PMD: Brooklynn Sainz Surgical History History of bilateral tubal ligation (11/27/22) Performed at the same time as her with Dr. Medina.; Pathology benign History of section X 3 2013--primary low transverse delivery-Dr. Baron 2014--repeat low transverse delivery-Dr. Gustafson at [facility] [place] 01/11/2021--schedule repeat low transverse delivery at 39 weeks-dense additions of bladder onto the uterus. By Dr. Gustafson at [facility] [place] History of cystoscopy 2014 cystoscopy with right retrograde ureteropyelogram and right ureteral stone extraction x2 performed by Dr. Sheets Hx of tonsillectomy And adenoidectomy at the age of 6 Status post repeat low transverse section (~11/27/22) Repeat section with tubal ligation performed by Dr. Medina. Family History Father Hypercholesteremia Hypertension Heart disease Grandmother Heart disease maternal Hypercholesteremia Maternal Hypertension maternal Diabetes Maternal Mother Hypercholesteremia Sister Thyroid disease Other Hyperlipidemia Denies family history of Colon cancer Ovarian cancer Breast cancer Uterine cancer Stroke Social History Smoking and tobacco status: never smoked Substance/Drug Use: never Physical Exam Const: COMMON NORMALS: no acute distress, patient oriented x3 and alert GENERAL APPEARANCE: cooperative ORIENTATION/CONSCIOUSNESS: Yes awake, Yes oriented to person, Yes oriented to place and Yes oriented to time HENMT: COMMON NORMALS: normocephalic and atraumatic HEAD & SCALP: normocephalic and atraumatic FACE & SINUS: normal facial exam MOUTH: Nor mal oral and palatal mucosa present THROAT: posterior oropharynx normal Eye: COMMON NORMALS: Equal, round and reactive pupils present, EOMs intact bilaterally, conjunctivae normal and no scleral icterus GENERAL EYE: appearance normal, both eyes and all related structures ALIGNMENT: Yes alignment normal PERIORBITAL: periorbital findings normal CONJUNCTIVA: Yes conjunctivae normal PUPIL: Yes Equal, round and reactive pupils present Neck/C-Spine: COMMON NORMALS: full ROM GENERAL: Yes normal visual ins pection Lymph: LYMPHATIC: no lymphadenopathy noted Chest: COMMONS NORMALS: normal inspection of the chest Breast/axilla inspection: Yes no chest deformity, asymmetry, normal contours, no nodules, masses, tenderness Resp: COMMON NORMALS: normal respiratory effort, No retractions, No use of accessory muscles and clear to auscultation bilaterally EFFORT & INSPECTION: Yes able to speak in complete sentences and Yes symmetric chest movement AUSCULTATION: clear to auscultation bilaterally Cardio: COMMON NORMALS: regular rate, regular rhythm and Peripheral pulses 2+ throughout RATE: regular rate RHYTHM: regular rhythm PERIPHERAL PULSES: Peripheral pulses 2+ throughout GI: COMMON NORMALS: Normal to inspection, nondistended, normoactive bowel sounds present, Soft to palpation, non-tender and No hepatosplenomegaly present INSPECTION: Yes normal to inspection, Yes central obesity and Yes scar AUSCULTATION: Yes normoactive bowel sounds PALPATION: Yes Soft to palpation, Yes Tenderness to palpation present (GI), Yes No hepatosplenomegaly present, No Pulsatile mass present and No Rebound tenderness present RECTAL EXAM: deferred Extremity: COMMON NORMALS: normal to inspection GENERAL: Yes normal exam except as noted Neuro: COMMON NORMALS: patient oriented x3 SENSORIUM/ORIENTATION: Yes alert, Yes oriented to person, Yes oriented to place and Yes oriented to time CRANIAL NERVES: Yes CN normal except as noted Psych: COMMON NORMALS: mental status grossly normal, Normal thought process present, cooperative, activity/motor behavior normal, denies homicidal ideation and denies suicidal ideation THOUGHT PROCESS: Normal thought process present Skin: COMMON NORMALS: no rashes or lesions noted, no wounds and turgor normal GENERAL SKIN EXAM: no rashes or lesions noted and turgor normal Course Vital Signs: Vital signs: Vital Signs Temperature 98 F 02/09/23 09:45 Pulse Rate 82 02/09/23 13:02 Respiratory Rate 16 02/09/23 13:02 Blood Pressure 127/79 02/09/23 13:02 Pulse Oximetry 99 02/09/23 13:02 Oxygen Delivery Me thod Room Air 02/09/23 13:02 MDM - Abdominal Pain Medical Decision Making Patient was evaluated in the emergency department for a 2-week history of progressive abdominal pain nausea vomiting and diarrhea. Initially pain was localized just in the upper quadrants; patient also has lower quadrant cramping that started with her menstrual cycle 2 days ago Differential diagnosis would be cholecystitis, cholelithiasis, pancreatitis, peptic ulcer disease, In the emergency department we obtained CBC, CMP, hCG. Patient's hCG is negative. CBC and CMP are grossly unremarkable. Lipase was 18 and no other abnormalities. The ultrasound of the abdomen was ordered but not complete. Patient elected to sign out AMA. Lab Data 02/09/23 10:27 02/09/23 10:27 Labs/Radiology: Laboratory Results WBC 9.1 10^3/uL (4.0-10.0) 02/09/23 10:27 RBC 5.11 10^6/uL (4.1-5.3) 02/09/23 10:27 Hgb 14.7 g/dL (11.5-15.3) 02/09/23 10:27 Hct 46.8 % (37.0-47.0) 02/09/23 10:27 MCV 91.6 fl (81-99) 02/09/23 10:27 MCH 28.8 pg (28.0-34.0) 02/09/23 10:27 MCHC 31.4 g/dL (30.0-36.0) 02/09/23 10:27 RDW 12.7 % (12.1-15.1) 02/09/23 10:27 Plt Count 202 10^3/cmm (130-400) 02/09/23 10:27 MPV 9.1 fL (7.4-10.4) 02/09/23 10:27 Neut % (Auto) 77.9 % 02/09/23 10:27 Lymph % (Auto) 15.3 % 02/09/23 10:27 [place] % (Auto) 5.6 % 02/09/23 10:27 Eos % (Auto) 0.7 % 02/09/23 10:27 Baso % (Auto) 0.2 % 02/09/23 10:27 Neut # (Auto) 7.10 10^3/uL (1.8-7.7) 02/09/23 10:27 Lymph # (Auto) 1.4 10^3/uL (0.8-4.8) 02/09/23 10:27 [place] # (Auto) 0.5 10^3/uL (0.2-0.9) 02/09/23 10:27 Eos # (Auto) 0.1 10^3/uL (0.0-0.8) 02/09/23 10:27 Baso # (Auto) 0.0 10^3/uL (0.0-0.1) 02/09/23 10:27 Nucleated RBC % (auto) 0 % 02/09/23 10:27 Nucleated RBCs # 0.0 /100WBC 02/09/23 10:27 Sodium 139 mmol/L (136-145) 02/09/23 10:27 Potassium 3.9 mmol/L (3.5-5.1) 02/09/23 10:27 Chloride 107 mmol/L (98-107) 02/09/23 10:27 Carbon Dioxide 21 mmol/L (22-29) L 02/09/23 10:27 Anion Gap 14.9 (5-19) 02/09/23 10:27 BUN 12 mg/dL (6-20) 02/09/23 10:27 Creatinine 0.7 mg/dL (0.5-0.9) 02/09/23 10:27 GFR Calculation 100.4 mL/min (90-130) 02/09/23 10:27 Glucose 97 mg/dL (65-115) 02/09/23 10:27 Calculated Osmolality 288 mOsm/kg (285-295) 02/09/23 10:27 Calcium 8.6 mg/dL (8.5-10.5) 02/09/23 10:27 Total Bilirubin 0.3 mg/dL (0.15-1.2) 02/09/23 10:27 AST 24 U/L (0-32) 02/09/23 10:27 ALT 46 U/L (0-33) H 02/09/23 10:27 Alkaline Phosphatase 84 U/L (35-105) 02/09/23 10:27 Total Protein 7.2 g/dL (6.6-8.7) 02/09/23 10:27 Albumin 4.3 g/dL (3.5-5.2) 02/09/23 10:27 Globulin 2.9 g/dL (1.3-4.6) 02/09/23 10:27 Lipase 18 U/L (13-60) 02/09/23 13:00 HCG, Qual Negative (Negative) 02/09/23 10:27 Urine Color Red (Yellow) 02/09/23 11:34 Urine Appearance Bloody (CLEAR) A 02/09/23 11:34 Urine pH 5 (5-7) 02/09/23 11:34 Ur Specific [place] 1.020 (1.005-1.030) 02/09/23 11:34 Urine Protein 3+ (Negative) H 02/09/23 11:34 Urine Glucose (UA) Norm (Normal) 02/09/23 11:34 Urine Ketones 1+ (Negative) H 02/09/23 11:34 Urine Blood 3+ (Negative) H 02/09/23 11:34 Urine Nitrate Negative (Negative) 02/09/23 11:34 Urine Bilirubin 1+ (Negative) H 02/09/23 11:34 Urine Urobilinogen 1 mg/dL (Negative) H 02/09/23 11:34 Ur Leukocyte Esterase 1+ (Negative) H 02/09/23 11:34 Urine RBC Too numerous to cnt /hpf (0-2) H 02/09/23 11:34 Urine WBC 15-25 /hpf (0-5) H 02/09/23 11:34 Ur Squamous Epith Cells 0-4 /hpf (0-5) H 02/09/23 11:34 Amorphous Sediment Not Reportable 02/09/23 11:34 Urine Bacteria 1+ /hpf (NONE) H 02/09/23 11:34 Discharge Plan Discharge Patient Disposition: Left Against Medical Advice Clinical Impression: Abdominal pain Condition: Stable Prescriptions: No Action omega-3 fatty acids 1,000 mg Capsule 1,000 mg PO QAM Multivitamins 28 mg iron- 800 mcg Tablet 1 tab PO QAM pyridoxine (vitamin B6) 25 mg tablet 25 mg PO TID PRN (Reason: nausea and vomiting) Qty: 30 0RF ibuprofen 800 mg tablet 800 mg PO TID PRN (Reason: pain) Qty: 60 0RF hydrocodone-acetaminophen 5-325 mg tablet 1 tab PO Q4H PRN (Reason: pain) Qty: 20 0RF acetaminophen 325 mg capsule 325 mg PO Q4H PRN (Reason: fever or pain) Qty: 60 0RF Referrals: Raheem Boothe FNP [Primary Care Provider] - Patient Instructions: Abdominal Pain (ED) Coding Level of Care Code ED Pyrotechnist for Ambrosio Salinas
[2023-02-09] MEDS: acetaminophen 500 mg Tablet 1000 MG PO (13:01)
[2023-02-09 13:02] VITALS: BP 127/79; PULSE 82; RESP 16; O2SAT 99
[2023-02-09 13:55] LABS: Lipase 18 U/L (13-60)
== END 2023-02-09 13:56 | disposition left against medical advice (07) ==
PROVIDERS: Emergency Medicine; Emergency Provider Nurse Practitioner; PCP Nurse Practitioner Family
DX: R10.10 Upper abdominal pain, unspecified (principal); Z53.21 Procedure and treatment not carried out due to patient leaving prior to being seen by health care provider
CPT/HCPCS: 36415; 80053; 81001; 83690; 84703; 85025; 87086; 99283

== ENCOUNTER 2023-07-30 16:44 | Emergency (ER) | payer BC, MEDICAID, SELFPAY ==
[2023-07-30 16:49] VITALS: BP 123/72; PULSE 76; RESP 18; TEMP 36.7; O2SAT 99; BMI 32.9
--- NOTE | 2023-07-30 17:12 | XRR_ITS ---
PROCEDURE INFORMATION: Exam: XR Chest Exam date and time: 07/30/2023 5:16 PM Age: 28 years old Clinical indication: Pain; Chest pressure; Additional info: Dyspnea/cough TECHNIQUE: Imaging protocol: Radiologic exam of the chest. Views: 1 view. COMPARISON: CT kidney stone [id number] 09/28/2017 6:54 PM FINDINGS: Lungs: Unremarkable. No consolidation. Pleural spaces: Unremarkable. No pleural effusion. No pneumothorax. Heart/Mediastinum: Unremarkable. No cardiomegaly. Bones/joints: Unremarkable. XR/XR chest 1V portable [id number] IMPRESSION: No acute findings.
[2023-07-30 17:14] VITALS: BP 148/100; PULSE 78; RESP 20; O2SAT 97; O2SAT 98
--- NOTE | 2023-07-30 17:36 | ED_ITS ---
HPI - Chest Pain General: Chief Complaint: Chest Pain Stated Complaint: chest pain Time Seen by Provider: 07/30/23 17:06 Source: patient Mode of arrival: ambulatory History of Present Illness: 28-year-old female presents emergency room with left parasternal upper chest pain for the last week. She has not noticed anything that exacerbates or relieves it. Radiates into her left shoulder at times. She has a history of some palpitations no shortness of breath no nausea vomiting or diarrhea. No history of any arrhythmias. No recent trauma. MD complaint: chest pain Onset (ago): week(s) (1) Timing of current episode: episodic Onset: during rest Pain location: left chest (Upper parasternal at sternoclavicular joint) Pain radiation: left shoulder Quality: sharp Exacerbating factors: palpation Associated symptoms: Deny abdominal pain, diaphoresis, dyspnea, fever(s), leg edema, nausea, palpitations, sense of impending doom, syncope or vomiting Review of Systems Const: Denies: fever(s) or diaphoresis Card: Denies: palpitations or syncope Resp: Denies: dyspnea GI: Denies: abdominal pain, nausea or vomiting : Denies: dysuria, urinary frequency or urinary urgency Musc: Denies: neck pain or back pain Skin/Breast: Denies: rash PFSH ED PFSH: Medical History Depression Diagnosed when she was 8-year-old. Not currently on any medication. Last used medication in 2014. Does not see a therapist. No pertinent past medical history Denies diabetes, asthma, hypertension, seizures, DVT/PE PMD: Brooklynn Sainz Surgical History History of bilateral tubal ligation (11/27/22) Performed at the same time as her with Dr. Medina.; Pathology benign History of section X 3 2013--primary low transverse delivery-Dr. Baron 2014--repeat low transverse [place] [facility] [place]--schedule repeat low transverse delivery at 39 weeks-dense additions of bladder onto the uterus. By Dr. Gustafson at [facility] [place] History of cystoscopy 2014 cystoscopy with right retrograde ureteropyelogram and right ureteral stone extraction x2 performed by Dr. Sheets Hx of tonsillectomy And adenoidectomy at the age of 6 Status post repeat low transverse section (~11/27/22) Repeat section with tubal ligation performed by Dr. Medina. Family History Father Hypercholesteremia Hypertension Heart disease Grandmother Heart disease maternal Hypercholesteremia Maternal Hypertension maternal Diabetes Maternal Mother Hypercholesteremia Sister Thyroid disease Other Hyperlipidemia Denies family history of Colon cancer Ovarian cancer Breast cancer Uterine cancer Stroke Social History Smoking and tobacco/nicotine status: never used tobacco/nicotine Substance/Drug Use: never Physical Exam Const: GENERAL APPEARANCE: cooperative and comfortable ORIENTATION/CONSCIOUSNESS: Yes awake, Yes oriented to person, Yes oriented to place and Yes oriented to time HENMT: COMMON NORMALS: normocephalic, atraumatic and hearing grossly normal bilaterally HEAD & SCALP: normocephalic and atraumatic Chest: OTHER: Pain with palpation left parasternal upper at the left sternoclavicular joint Resp: COMMON NORMALS: normal respiratory effort, No retractions, No use of accessory muscles and clear to auscultation bilaterally AUSCULTATION: clear to auscultation bilaterally Cardio: COMMON NORMALS: regular rate, regular rhythm and No murmurs present (Cardio) RATE: regular rate RHYTHM: regular rhythm GI: COMMON NORMALS: Soft to palpation and No hepatosplenomegaly present AUSCULTATION: Yes normoactive bowel sounds PALPATION: Yes Soft to palpation, No Tenderness to palpation present (GI), No Guarding due to palpation present (GI) and Yes No hepatosplenomegaly present Extremity: COMMON NORMALS: normal to inspection, capillary refill normal, no clubbing, cyanosis or edema, no calf tenderness and no pedal edema Neuro: SENSORIUM/ORIENTATION: Yes oriented to person, Yes oriented to place and Yes oriented to time Skin: COMMON NORMALS: no rashes or lesions noted GENERAL SKIN EXAM: no rashes or lesions noted Course Vital Signs: Vital signs: Vital Signs Temperature 98.1 F 07/30/23 16:49 Pulse Rate 81 07/30/23 18:23 Respiratory Rate 16 07/30/23 18:23 Blood Pressure 128/76 07/30/23 18:23 Pulse Oximetry 100 07/30/23 18:23 Oxygen Delivery Me thod Room Air 07/30/23 17:14 MDM - Chest Pain Medical Decision Making Labs and imaging unremarkable. EKG shows no ST segment elevation normal sinus rhythm. Troponin is undetectable. Patient's pain is reproducible with palpation anti-inflammatories as needed. Follow-up with primary care. Medical Records I reviewed the patient's medical records. Lab Data I reviewed the patient's lab results. 07/30/23 17:41 07/30/23 17:41 Radiology Impressions Chest X-Ray 07/30/23 17:12 IMPRESSION: No acute findings. Laboratory Results WBC 6.72 10^3/uL (3.29-11.43) 07/30/23 17:41 RBC 4.20 10^6/uL (3.85-5.65) 07/30/23 17:41 Hgb 11.50 g/dL (11.27-16.99) 07/30/23 17:41 Hct 36.8 % (36-47) 07/30/23 17:41 MCV 87.6 fl (85-98) 07/30/23 17:41 MCH 27.4 pg (27-33) 07/30/23 17:41 MCHC 31.3 g/dL (30-55) 07/30/23 17:41 RDW 14.6 % (12.1-15.1) 07/30/23 17:41 Plt Count 261 10^3/cmm (157-399) 07/30/23 17:41 MPV 9.3 fL (7.4-10.4) 07/30/23 17:41 Neut % (Auto) 54.3 % 07/30/23 17:41 Lymph % (Auto) 36.9 % 07/30/23 17:41 [place] % (Auto) 6.4 % 07/30/23 17:41 Eos % (Auto) 1.5 % 07/30/23 17:41 Baso % (Auto) 0.6 % 07/30/23 17:41 Neut # (Auto) 3.65 10^3/uL (1.8-7.7) 07/30/23 17:41 Lymph # (Auto) 2.5 10^3/uL (0.8-4.8) 07/30/23 17:41 [place] # (Auto) 0.4 10^3/uL (0.2-0.9) 07/30/23 17:41 Eos # (Auto) 0.1 10^3/uL (0.0-0.8) 07/30/23 17:41 Baso # (Auto) 0.0 10^3/uL (0.0-0.1) 07/30/23 17:41 Nucleated RBC % (auto) 0 % 07/30/23 17:41 Nucleated RBCs # 0.0 /100WBC 07/30/23 17:41 Sodium 144 mmol/L (136-145) 07/30/23 17:41 Potassium 4.0 mmol/L (3.5-5.1) 07/30/23 17:41 Chloride 108 mmol/L (98-107) H 07/30/23 17:41 Carbon Dioxide 27 mmol/L (22-29) 07/30/23 17:41 Anion Gap 13.0 (5-19) 07/30/23 17:41 BUN 9 mg/dL (6-20) 07/30/23 17:41 Creatinine 1.2 mg/dL (0.5-0.9) H 07/30/23 17:41 GFR Calculation 53.5 mL/min (90-130) L 07/30/23 17:41 Glucose 91 mg/dL (65-115) 07/30/23 17:41 Calculated Osmolality 296 mOsm/kg (285-295) H 07/30/23 17:41 Calcium 8.4 mg/dL (8.5-10.5) L 07/30/23 17:41 Total Bilirubin 0.3 mg/dL (0.15-1.2) 07/30/23 17:41 AST 18 U/L (0-32) 07/30/23 17:41 ALT 13 U/L (0-33) 07/30/23 17:41 Alkaline Phosphatase 77 U/L (35-105) 07/30/23 17:41 Troponin T Baseline < 6 ng/L (0-10) 07/30/23 17:41 Total Protein 6.7 g/dL (6.6-8.7) 07/30/23 17:41 Albumin 4.1 g/dL (3.5-5.2) 07/30/23 17:41 Globulin 2.6 g/dL (1.3-4.6) 07/30/23 17:41 All radiology interpretation(s) finalized by discharge Discharge Plan Discharge Patient Disposition: Home Clinical Impression: Chest wall pain Condition: Stable Prescriptions: New diclofenac sodium 75 mg tablet,delayed release (DR/EC) 75 mg PO Q12H PRN (Reason: pain) Qty: 20 0RF Discontinued ibuprofen 800 mg tablet 800 mg PO TID PRN (Reason: pain) Qty: 60 0RF No Action omega-3 fatty acids 1,000 mg Capsule 1,000 mg PO QAM Multivitamins 28 mg iron- 800 mcg Tablet 1 tab PO QAM pyridoxine (vitamin B6) 25 mg tablet 25 mg PO TID PRN (Reason: nausea and vomiting) Qty: 30 0RF hydrocodone-acetaminophen 5-325 mg tablet 1 tab PO Q4H PRN (Reason: pain) Qty: 20 0RF acetaminophen 325 mg capsule 325 mg PO Q4H PRN (Reason: fever or pain) Qty: 60 0RF Discharge Orders: Discharge ED (Routine); Ordered 07/30/23 Ordered By: Umair Coley Referrals: Raheem Boothe FNP [Primary Care Provider] - Discharge Diet: Usual diet Discharge Activity: Increase activity as tolerated Patient Instructions: Opioid Safety, Pain Management Coding Level of Care Code ED Marketing Operations Manager for Ambrosio Salinas
--- NOTE | 2023-07-30 17:36 | ECG_ITS ---
[facility] Test Date: 2023-07-30 Pat Name: Lea Batista Department: Room: Gender: Female Human Services Manager: : 1995 Requested By: Umair Lopez Order Number: [id number] Brendan MD: Azar Hemphill M.D. Measurements Intervals [place] Rate: 75 P: 66 W[place]: 174 QRS: 85 QRSD: 89 T: 62 QT: 359 QTc: 403 Interpretive Statements SINUS RHYTHM WITH SINUS ARRHYTHMIA No previous ECG available for comparison Electronically Signed On 07-31-2023 21:30:15 CDT by Azar Hemphill M.D. [id number]
[2023-07-30 17:51] LABS: Basophils % 0.6 %; Eosinophils # 0.1 10^3/uL (0.0-0.8); Eosinophils % 1.5 %; Hematocrit 36.8 % (36-47); Lymphocytes # 2.5 10^3/uL (0.8-4.8); Lymphocytes % 36.9 %; Mean Corpuscular HGB Conc 31.3 g/dL (30-55); Mean Corpuscular Hemoglobin 27.4 pg (27-33); Mean Corpuscular Volume 87.6 fl (85-98); Mean Platelet Volume 9.3 fL (7.4-10.4); Monocytes # 0.4 10^3/uL (0.2-0.9); Monocytes % 6.4 %; Neutrophils # 3.65 10^3/uL (1.8-7.7); Neutrophils % 54.3 %; Nucleated Red Blood Cells % 0 %; Platelet Count 261 10^3/cmm (157-399); Red Cell Distribution Width 14.6 % (12.1-15.1); White Blood Count 6.72 10^3/uL (3.29-11.43)
[2023-07-30 18:13] LABS: Troponin(5th) Baseline < 6 ng/L (0-10)
[2023-07-30 18:17] LABS: Alanine Aminotransferase 13 U/L (0-33); Albumin Level 4.1 g/dL (3.5-5.2); Alkaline Phosphatase 77 U/L (35-105); Aspartate Amino Transferase 18 U/L (0-32); Blood Urea Nitrogen 9 mg/dL (6-20); Calcium 8.4 mg/dL (8.5-10.5); Carbon Dioxide 27 mmol/L (22-29); Chloride 108 mmol/L (98-107); Globulin 2.6 g/dL (1.3-4.6); Glomerular Filtration Rate 53.5 mL/min (90-130); Glucose 91 mg/dL (65-115); Osmolality Calculated 296 mOsm/kg (285-295); Sodium 144 mmol/L (136-145); Total Bilirubin 0.3 mg/dL (0.15-1.2); Total Protein 6.7 g/dL (6.6-8.7)
[2023-07-30 18:23] VITALS: BP 128/76; PULSE 81; RESP 16; O2SAT 100
== END 2023-07-30 18:24 | disposition home or self-care (01) ==
PROVIDERS: Emergency Provider Family Medicine; PCP Nurse Practitioner Family
DX: R07.89 Other chest pain (principal)
CPT/HCPCS: 36415; 71045; 80053; 84484; 85025; 93005; 99285

== ENCOUNTER 2023-09-25 16:07 | Emergency (ER) | payer BC, MEDICAID, SELFPAY ==
--- NOTE | 2023-09-25 16:10 | XRR_ITS ---
PROCEDURE INFORMATION: Exam: XR Right Shoulder Exam date and time: 09/25/2023 5:10 PM Age: 28 years old Clinical indication: Injury or trauma; Other: Moving objects; Other: Unknown TECHNIQUE: Imaging protocol: Radiologic exam of the right shoulder. Views: 2 or more views. COMPARISON: CR XR chest 1V portable [id number] 07/30/2023 5:16 PM FINDINGS: Bones/joints: No acute fracture. No dislocation. Normal bone mineralization. No joint effusion. Joint spaces are maintained. Lungs: Visualized lungs are clear. Soft tissues: No soft tissue swelling. No radiopaque foreign body. XR/XR shoulder RT min 2V* [id number] IMPRESSION: Negative radiographs of the right shoulder. Followup imaging recommended in 7-14 days if clinical concern for fracture persists.
[2023-09-25 16:11] VITALS: BP 127/84; PULSE 78; RESP 15; TEMP 36.7; O2SAT 98; BMI 32.9
--- NOTE | 2023-09-25 16:49 | W.ED.EXTPRO ---
HPI - Extremity Problem General: Chief complaint: Extremity Injury, Upper Stated complaint: hurt right shoulder Time Seen by Provider: 09/25/23 16:26 Source: patient Mode of arrival: ambulatory Limitations: no limitations History of Present Illness: 28-year-old female states that she is in a lot of heavy lifting she has to lift boxes at work and she been having right shoulder pain it has been going on over the last 2 days states it hurts when she moves her right arm also when she moves her head from [id number] she rates the pain a 4 out of 10 its improved with rest denies any specific one-time injury. Associated symptoms: Deny chest pain, fever(s) or rash Review of Systems Const: Denies: fever(s), chills, body aches or change in appetite ENMT: Denies: throat pain or dental pain Card: Denies: chest pain Resp: Denies: dyspnea GI: Denies: abdominal pain, nausea, vomiting or diarrhea Musc: Reports: extremity pain; Denies: neck pain or back pain Skin/Breast: Denies: rash Neuro: Denies: headache(s) PFSH ED PFSH: Medical History No pertinent past medical history Denies diabetes, asthma, hypertension, seizures, DVT/PE Depression Diagnosed when she was 8-year-old. Not currently on any medication. Last used medication in 2014. Does not see a therapist. Surgical History History of bilateral tubal ligation (11/27/22) Performed at the same time as her with Dr. Medina.; Pathology benign Status post repeat low transverse section (~11/27/22) Repeat section with tubal ligation performed by Dr. Medina. History of cystoscopy 2014 cystoscopy with right retrograde ureteropyelogram and right ureteral stone extraction x2 performed by Dr. Sheets History of section X 3 2013--primary low transverse delivery-Dr. Baron 2014--repeat low transverse delivery[place] Gustaf[place] [facility] [place]21--schedule repeat low transverse delivery at 39 weeks-dense additions of bladder onto the uterus. By Dr. Gustafson [place] [facility] [place] Hx of tonsillectomy And adenoidectomy at the age of 6 Family History Father Hypercholesteremia Hypertension Heart disease Grandmother Heart disease maternal Hypercholesteremia Maternal Hypertension maternal Diabetes Maternal Mother Hypercholesteremia Sister Thyroid disease Other Hyperlipidemia Denies family history of Colon cancer Ovarian cancer Breast cancer Uterine cancer Stroke Social History Smoking and tobacco/nicotine status: never used tobacco/nicotine Substance/Drug Use: never Female Reproductive History: Date of last menstrual period: 09/25/23 Physical Exam Const: COMMON NORMALS: no acute distress, patient oriented x3 and healthy appearing HENMT: COMMON NORMALS: normocephalic and atraumatic HEAD & SCALP: normocephalic and atraumatic Neck/C-Spine: COMMON NORMALS: full ROM and supple Chest: COMMONS NORMALS: normal inspection of the chest Resp: COMMON NORMALS: normal respiratory effort Cardio: COMMON NORMALS: regular rate, regular rhythm and No murmurs present (Cardio) RATE: regular rate RHYTHM: regular rhythm GI: INSPECTION: Yes normal to inspection Extremity: NARRATIVE EXTREMITY EXAM: Tenderness over right trapezius muscle does have some pains with range of motion of her arm no deformities noted distal pulses sensation intact Neuro: COMMON NORMALS: patient oriented x3, moves all extremities and no focal motor deficits Psych: COMMON NORMALS: mental status grossly normal, Normal thought process present and cooperative THOUGHT PROCESS: Normal thought process present Skin: COMMON NORMALS: no rashes or lesions noted and no wounds GENERAL SKIN EXAM: no rashes or lesions noted Course Vital Signs: Vital signs: Vital Signs Temperature 98.0 F 09/25/23 16:11 Pulse Rate 78 09/25/23 16:11 Respiratory Rate 15 09/25/23 16:11 Blood Pressure 127/84 09/25/23 16:11 Pulse Oximetry 98 09/25/23 16:11 Oxygen Delivery Me thod Room Air 09/25/23 16:11 MDM - Extremity (Nontraumatic) Medical Decision Making Patient manage her shoulder pain she has some tenderness over trapezius muscle likely muscle strain we will place her on Naprosyn Robaxin she is to ice she is to follow-up with her PCP and return if worsening x-ray here is negative. Medical Records I reviewed the patient's medical records. XR interpretation done by ED provider, pending radiology final review ED provider radiology interpretation(s): X-ray right shoulder no obvious deformity Discharge Plan Discharge Patient Disposition: Home Clinical Impression: Pain in right shoulder Qualifiers: Chronicity: acute Qualified Code(s): M25.511 - Pain in right shoulder Condition: Stable Prescriptions: New methocarbamol 750 mg tablet 750 mg PO Q6H PRN (Reason: spasms) Qty: 20 0RF Naprosyn 500 mg tablet 500 mg PO BID PRN (Reason: pain) Qty: 20 0RF No Action omega-3 fatty acids 1,000 mg Capsule 1,000 mg PO QAM Multivitamins 28 mg iron- 800 mcg Tablet 1 tab PO QAM pyridoxine (vitamin B6) 25 mg tablet 25 mg PO TID PRN (Reason: nausea and vomiting) Qty: 30 0RF acetaminophen 325 mg capsule 325 mg PO Q4H PRN (Reason: fever or pain) Qty: 60 0RF diclofenac sodium 75 mg tablet,delayed release (DR/EC) 75 mg PO Q12H PRN (Reason: pain) Qty: 20 0RF Discharge Orders: Discharge ED (Routine); Ordered 09/25/23 Ordered By: Kristian Mccall Referrals: Raheem Boothe FNP [Primary Care Provider] - 1-3 days Discharge Diet: Advance as tolerated Discharge Activity: Resume usual activity Patient Instructions: Shoulder Pain (ED) Coding Level of Care Code 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
[2023-09-25] MEDS: naproxen 500 mg Tablet PO (17:07)
== END 2023-09-25 18:07 | disposition home or self-care (01) ==
PROVIDERS: Emergency Provider Emergency Medicine; PCP Nurse Practitioner Family
DX: M25.511 Pain in right shoulder (principal)
CPT/HCPCS: 73030; 99283

== ENCOUNTER → 2024-03-16 14:41 | Outpatient (BNVA) | payer BC, MEDICAID, SELFPAY | PROVIDERS: PCP Nurse Practitioner Family; Visit Provider Nurse Practitioner Family | DX: Z20.2 Contact with and (suspected) exposure to infections with a predominantly sexual mode of transmission (principal); Z72.51 High risk heterosexual behavior | CPT/HCPCS: 81025; 86705; 86706; 86709; 86803; 87340; 87491; 87591; 87806 ==

== ENCOUNTER 2024-07-15 19:29 | Emergency (ER) | payer SELFPAY ==
[2024-07-15 19:37] VITALS: BP 116/81; PULSE 76; RESP 16; TEMP 36.8; O2SAT 100; BMI 30.9
[2024-07-15 19:45] LABS: Basophils % 0.6 %; Eosinophils # 0.1 10^3/uL (0.0-0.8); Eosinophils % 0.8 %; Hematocrit 34.8 % (36-47); Lymphocytes # 2.5 10^3/uL (0.8-4.8); Lymphocytes % 37.2 %; Mean Corpuscular HGB Conc 29.9 g/dL (30-55); Mean Corpuscular Hemoglobin 23.2 pg (27-33); Mean Corpuscular Volume 77.7 fl (85-98); Mean Platelet Volume 9.5 fL (7.4-10.4); Monocytes # 0.4 10^3/uL (0.2-0.9); Monocytes % 5.7 %; Neutrophils # 3.69 10^3/uL (1.8-7.7); Neutrophils % 55.4 %; Nucleated Red Blood Cells % 0 %; Platelet Count 236 10^3/cmm (157-399); Red Blood Count 4.48 10^6/uL (3.85-5.65); Red Cell Distribution Width 18.1 % (12.1-15.1); White Blood Count 6.66 10^3/uL (3.29-11.43)
--- NOTE | 2024-07-15 19:48 | CTR_ITS ---
PROCEDURE INFORMATION: Exam: CT Abdomen And Pelvis With Contrast Exam date and time: 07/15/2024 8:03 PM Age: 29 years old Clinical indication: Abdominal pain; Additional info: Abd pain TECHNIQUE: Imaging protocol: Computed tomography of the abdomen and pelvis with contrast. Radiation optimization: All CT scans at this facility use at least one of these dose optimization techniques: automated exposure control; mA and/or kV adjustment per patient size (includes targeted exams where dose is matched to clinical indication); or iterative reconstruction. Contrast material: OMNI 350; Contrast volume: 100 ml; Contrast route: INTRAVENOUS (IV); COMPARISON: CT kidney stone [id number] 09/28/2017 6:54 PM RADIATION DOSE METRICS: Total DLP (mGy-cm): 614 FINDINGS: Liver: Normal. No mass. Gallbladder and biliary ducts: Normal. No calcified stones. No ductal dilation. Pancreas: Normal. No ductal dilation. Spleen: Normal. No splenomegaly. Adrenal glands: Normal. No mass. Kidneys and ureters: Normal. No hydronephrosis. Stomach and bowel: Unremarkable. No obstruction. No mucosal thickening. Appendix: No evidence of appendicitis. Intraperitoneal space: Unremarkable. No free air. No significant fluid collection. Vasculature: Unremarkable. No abdominal aortic aneurysm. Lymph nodes: Unremarkable. No enlarged lymph nodes. Urinary bladder: Unremarkable as visualized. Reproductive: Suspected small uterine fibroid anteriorly. Bones/joints: No acute fracture. Soft tissues: Unremarkable. CT/CT abdomen pelvis w con* [id number] IMPRESSION: No acute findings.
--- NOTE | 2024-07-15 19:48 | W.ED.ABDPA2 ---
HPI - Abdominal Pain General: Chief Complaint: Abdominal Pain Stated Complaint: Lower abd pain Time Seen by Provider: 07/15/24 19:36 Source: patient Mode of arrival: ambulatory Limitations: no limitations History of Present Illness: 29-year-old female states has been having suprapubic abdominal pain that is been off and on for last 2 weeks. States has been a sharp pain she rates it a 3 out of 10 currently she denies any vomiting or diarrhea. She denies any fevers. She denies any vaginal bleeding or discharge Associated Symptoms: Denies chills, diarrhea, dysuria, fever(s), nausea and vomiting Related Data Home Medications Medication Instructions Recorded Confirmed No Known Home Medications 03/19/24 03/19/24 Allergies Allergy/AdvReac Type Severity Reaction Status Date / Time No Known Allergies Allergy Verified 03/19/24 13:36 Review of Systems Const: Denies: fever(s), chills, body aches or change in appetite ENMT: Denies: throat pain or dental pain Card: Denies: chest pain Resp: Denies: dyspnea GI: Reports: abdominal pain; Denies: nausea, vomiting or diarrhea : Denies: dysuria Musc: Denies: neck pain or back pain Skin/Breast: Denies: rash Neuro: Denies: headache(s) PFSH ED PFSH: Medical History No pertinent past medical history Denies diabetes, asthma, hypertension, seizures, DVT/PE Depression Diagnosed when she was 8-year-old. Not currently on any medication. Last used medication in 2014. Does not see a therapist. Surgical History History of bilateral tubal ligation (11/27/22) Performed at the same time as her with Dr. Medina.; Pathology benign Status post repeat low transverse section (~11/27/22) Repeat section with tubal ligation performed by Dr. Medina. History of cystoscopy 2014 cystoscopy with right retrograde ureteropyelogram and right ureteral stone extraction x2 performed by Dr. Sheets History of section X 3 2013--primary low transverse delivery-Dr. Baron 2014--[place] [facility] [place]schedule repeat low transverse delivery at 39 weeks-dense additions of bladder onto the uterus. [place] [facility] [place] Hx of tonsillectomy And adenoidectomy at the age of 6 Family History Father Hypercholesteremia Hypertension Heart disease Grandmother Heart disease maternal Hypercholesteremia Maternal Hypertension maternal Diabetes Maternal Mother Hypercholesteremia Sister Thyroid disease Other Hyperlipidemia Denies family history of Colon cancer Ovarian cancer Breast cancer Uterine cancer Stroke Social History Smoking and tobacco/nicotine status: never used tobacco/nicotine Substance/Drug Use: never Physical Exam Const: COMMON NORMALS: no acute distress, patient oriented x3 and healthy appearing HENMT: COMMON NORMALS: normocephalic and atraumatic HEAD & SCALP: normocephalic and atraumatic Eye: COMMON NORMALS: Equal, round and reactive pupils present and EOMs intact bilaterally PUPIL: Yes Equal, round and reactive pupils present Neck/C-Spine: COMMON NORMALS: full ROM Chest: COMMONS NORMALS: normal inspection of the chest Resp: COMMON NORMALS: normal respiratory effort Cardio: COMMON NORMALS: regular rate, regular rhythm and No murmurs present (Cardio) RATE: regular rate RHYTHM: regular rhythm GI: COMMON NORMALS: Normal to inspection, nondistended, normoactive bowel sounds present, Soft to palpation and no masses PALPATION: Yes Soft to palpation OTHER: supra pubic tenderness Extremity: COMMON NORMALS: normal to inspection and full ROM Neuro: COMMON NORMALS: patient oriented x3, moves all extremities and no focal motor deficits Psych: COMMON NORMALS: mental status grossly normal, Normal thought process present and cooperative THOUGHT PROCESS: Normal thought process present Skin: COMMON NORMALS: no rashes or lesions noted and no wounds GENERAL SKIN EXAM: no rashes or lesions noted Course Vital Signs: Vital signs: Vital Signs Temperature 98.3 F 07/15/24 19:37 Pulse Rate 71 07/15/24 20:22 Respiratory Rate 16 07/15/24 19:37 Blood Pressure 128/74 07/15/24 20:22 Pulse Oximetry 99 07/15/24 20:22 Oxygen Delivery Me thod Room Air 07/15/24 20:22 MDM - Abdominal Pain Medical Decision Making Patient presents with abdominal pain her blood work urinalysis imaging here is all normal she stable for discharge she is follow-up with PCP return if worsening she understands agrees to plan Medical Records I reviewed the patient's medical records. Lab Data I reviewed the patient's lab results. 07/15/24 19:40 07/15/24 19:40 Labs/Radiology: Radiology Impressions Abdomen/Pelvis CT 07/15/24 19:48 IMPRESSION: No acute findings. Laboratory Results WBC 6.66 10^3/uL (3.29-11.43) 07/15/24 19:40 RBC 4.48 10^6/uL (3.85-5.65) 07/15/24 19:40 Hgb 10.40 g/dL (11.27-16.99) L 07/15/24 19:40 Hct 34.8 % (36-47) L 07/15/24 19:40 MCV 77.7 fl (85-98) L 07/15/24 19:40 MCH 23.2 pg (27-33) L 07/15/24 19:40 MCHC 29.9 g/dL (30-55) L 07/15/24 19:40 RDW 18.1 % (12.1-15.1) H 07/15/24 19:40 Plt Count 236 10^3/cmm (157-399) 07/15/24 19:40 MPV 9.5 fL (7.4-10.4) 07/15/24 19:40 Neut % (Auto) 55.4 % 07/15/24 19:40 Lymph % (Auto) 37.2 % 07/15/24 19:40 [place] % (Auto) 5.7 % 07/15/24 19:40 Eos % (Auto) 0.8 % 07/15/24 19:40 Baso % (Auto) 0.6 % 07/15/24 19:40 Neut # (Auto) 3.69 10^3/uL (1.8-7.7) 07/15/24 19:40 Lymph # (Auto) 2.5 10^3/uL (0.8-4.8) 07/15/24 19:40 [place] # (Auto) 0.4 10^3/uL (0.2-0.9) 07/15/24 19:40 Eos # (Auto) 0.1 10^3/uL (0.0-0.8) 07/15/24 19:40 Baso # (Auto) 0.0 10^3/uL (0.0-0.1) 07/15/24 19:40 Nucleated RBC % (auto) 0 % 07/15/24 19:40 Nucleated RBCs # 0.0 /100WBC 07/15/24 19:40 Sodium 136 mmol/L (136-145) 07/15/24 19:40 Potassium 4.2 mmol/L (3.5-5.1) 07/15/24 19:40 Chloride 101 mmol/L (98-107) 07/15/24 19:40 Carbon Dioxide 23 mmol/L (22-29) 07/15/24 19:40 Anion Gap 16.2 (5-19) 07/15/24 19:40 BUN 14 mg/dL (6-20) 07/15/24 19:40 Creatinine 0.7 mg/dL (0.5-0.9) 07/15/24 19:40 GFR Calculation 98.9 mL/min (90-130) 07/15/24 19:40 Glucose 88 mg/dL (65-115) 07/15/24 19:40 Calculated Osmolality 282 mOsm/kg (285-295) L 07/15/24 19:40 Calcium 8.7 mg/dL (8.5-10.5) 07/15/24 19:40 Total Bilirubin 0.2 mg/dL (0.15-1.2) 07/15/24 19:40 AST 16 U/L (0-32) 07/15/24 19:40 ALT 16 U/L (0-33) 07/15/24 19:40 Alkaline Phosphatase 84 U/L (35-105) 07/15/24 19:40 Total Protein 7.3 g/dL (6.6-8.7) 07/15/24 19:40 Albumin 4.1 g/dL (3.5-5.2) 07/15/24 19:40 Globulin 3.2 g/dL (1.3-4.6) 07/15/24 19:40 Lipase 28 U/L (13-60) 07/15/24 19:40 HCG, Qual Negative (Negative) 07/15/24 19:40 Urine Color Yellow (Yellow) 07/15/24 20:05 Urine Appearance Clear (CLEAR) 07/15/24 20:05 Urine pH 5.5 (5-7) 07/15/24 20:05 Ur Specific [place] 1.021 (1.005-1.030) 07/15/24 20:05 Urine Protein Negative (Negative) 07/15/24 20:05 Urine Glucose (UA) Negative (Normal) 07/15/24 20:05 Urine Ketones Trace (Negative) 07/15/24 20:05 Urine Blood Negative (Negative) 07/15/24 20:05 Urine Nitrate Negative (Negative) 07/15/24 20:05 Urine Bilirubin Negative (Negative) 07/15/24 20:05 Urine Urobilinogen 1.0 mg/dL (Negative) 07/15/24 20:05 Ur Leukocyte Esterase Negative (Negative) 07/15/24 20:05 Urine RBC 0-2 /hpf (0-2) 07/15/24 20:05 Urine WBC 0-5 /hpf (0-5) 07/15/24 20:05 Ur Squamous Epith Cells 0-5 /hpf (0-5) 07/15/24 20:05 Amorphous Sediment Not Reportable 07/15/24 20:05 Urine Bacteria None seen /hpf (NONE) 07/15/24 20:05 Hyaline Casts 0.40 /lpf 07/15/24 20:05 All radiology interpretation(s) finalized by discharge Discharge Plan Discharge Patient Disposition: Home Clinical Impression: Abdominal pain Condition: Stable Prescriptions: No Action No Known Home Medications Discharge Orders: Discharge ED (Routine); Ordered 07/15/24 Ordered By: Kristian Mccall Referrals: Jackson Boothe FNP [Primary Care Provider] - 4-7 days Discharge Diet: Advance as tolerated Discharge Activity: Resume usual activity Patient Instructions: Abdominal Pain (ED) Coding Level 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
[2024-07-15 20:00] LABS: HCG, Serum Qual Negative (Negative)
[2024-07-15 20:05] LABS: Alanine Aminotransferase 16 U/L (0-33); Albumin Level 4.1 g/dL (3.5-5.2); Alkaline Phosphatase 84 U/L (35-105); Anion Gap 16.2 (5-19); Aspartate Amino Transferase 16 U/L (0-32); Blood Urea Nitrogen 14 mg/dL (6-20); Calcium 8.7 mg/dL (8.5-10.5); Carbon Dioxide 23 mmol/L (22-29); Chloride 101 mmol/L (98-107); Creatinine Clr Calc Pharmacy 113.6745; Globulin 3.2 g/dL (1.3-4.6); Glomerular Filtration Rate 98.9 mL/min (90-130); Glucose 88 mg/dL (65-115); Lipase 28 U/L (13-60); Osmolality Calculated 282 mOsm/kg (285-295); Potassium 4.2 mmol/L (3.5-5.1); Sodium 136 mmol/L (136-145); Total Bilirubin 0.2 mg/dL (0.15-1.2); Total Protein 7.3 g/dL (6.6-8.7)
[2024-07-15] MEDS: iohexol 350 mg/mL 500 mL Btl (per mL) IV (20:08)
[2024-07-15 20:12] LABS: Bilirubin Urine Negative (Negative); Blood Urine Negative (Negative); Glucose Urine UA Negative (Normal); Ketones Urine Trace (Negative); Leukocyte Esterase Urine Negative (Negative); Nitrate Urine Negative (Negative); Protein Urine Negative (Negative); Specific Gravity, Urine 1.021 (1.005-1.030); Urine Appearance Clear (CLEAR); Urine Color Yellow (Yellow); pH Urine 5.5 (5-7)
[2024-07-15 20:17] LABS: Add Urine Microscopic? YES; Bacteria Urine None Seen /hpf; RBC Urine 0-2 /hpf (0-2); Squamous Epithelial Cell Urine 0-5 /hpf (0-5); WBC Urine 0-5 /hpf (0-5)
[2024-07-15 20:22] VITALS: BP 128/74; PULSE 71; O2SAT 99
[2024-07-15 21:05] VITALS: BP 123/74; PULSE 74; O2SAT 100
== END 2024-07-15 21:06 | disposition home or self-care (01) ==
PROVIDERS: Emergency Provider Emergency Medicine; PCP Nurse Practitioner Family
DX: R10.2 Pelvic and perineal pain (principal)
CPT/HCPCS: 36415; 74177; 80053; 81001; 83690; 84703; 85025; 99285

== ENCOUNTER → 2024-09-14 17:02 | Outpatient (BNVA) | payer MEDICAID, SELFPAY | PROVIDERS: PCP Nurse Practitioner Family; Visit Provider Emergency Medicine | DX: N89.8 Other specified noninflammatory disorders of vagina (principal); Z20.2 Contact with and (suspected) exposure to infections with a predominantly sexual mode of transmission | CPT/HCPCS: 81000; 87077; 87086; 87184; 87491; 87591; 87661 ==

== ENCOUNTER → 2025-02-11 11:32 | Outpatient (BNVA) | payer MEDICAID, SELFPAY | PROVIDERS: PCP Nurse Practitioner Family; Visit Provider Nurse Practitioner Family | DX: J02.0 Streptococcal pharyngitis (principal) | CPT/HCPCS: 87880 ==

== ENCOUNTER 2025-02-28 20:42 | Emergency (ER) | payer MEDICAID, SELFPAY ==
[2025-02-28 20:46] VITALS: BP 141/72; PULSE 110; RESP 16; TEMP 36.7; O2SAT 97; BMI 28.3
--- NOTE | 2025-02-28 21:15 | W.ED.GENADLT ---
HPI - General Adult General: Chief complaint: General Medical Stated complaint: sneezing, cough, fever, has tick bites Time Seen by Provider: 02/28/25 20:55 History of Present Illness: Patient is a well-appearing 29-year-old female seen for 2 days of cough, congestion, sore throat, and rhinorrhea. She also feels somewhat less energetic than usual. She is uncertain whether she has a fever or not. Yesterday, she found a tick on her ankle and 1 on her abdomen and she pulled them off. She does not think they were embedded for more than roughly 4 hours. They were not engorged. She has mild itching and mild pinkish hue to the skin where the ticks bit her but no target lesions or other concern for cellulitis. She has not taken anything for her symptoms. She has no other acute complaints. She was told to come to the emergency department because of the tick bites. Related Data Previous Rx's ?Medication ?Instructions ?Recorded amoxicillin 500 mg tablet 500 mg PO TID 10 days #30 tabs 02/17/25 Allergies Allergy/AdvReac Type Severity Reaction Status Date / Time No Known Allergies Allergy Verified 02/11/25 11:18 [facility] ED [facility]: Medical History No pertinent past medical history Denies diabetes, asthma, hypertension, seizures, DVT/PE Depression Diagnosed when she was 8-year-old. Not currently on any medication. Last used medication in 2014. Does not see a therapist. Surgical History History of bilateral tubal ligation (11/27/22) Performed at the same time as her with Dr. Medina.; Pathology benign Status post repeat low transverse section (~11/27/22) Repeat section with tubal ligation performed by Dr. Medina. History of cystoscopy 2014 cystoscopy with right retrograde ureteropyelogram and right ureteral stone extraction x2 performed by Dr. Sheets History of section X 3 2013--primary low transverse delivery-Dr. Baron 2014--repeat low transverse delivery[place]Dr. Gustafson [place] [facility] [place]21--schedule repeat low transverse delivery at 39 weeks-dense additions of bladder onto the uterus. By Dr. Gustafson at [facility] [place] Hx of tonsillectomy And adenoidectomy at the age of 6 Family History Father Hypercholesteremia Hypertension Heart disease Grandmother Heart disease maternal Hypercholesteremia Maternal Hypertension maternal Diabetes Maternal Mother Hypercholesteremia Sister Thyroid disease Other Hyperlipidemia Denies family history of Colon cancer Ovarian cancer Breast cancer Uterine cancer Stroke Social History Smoking and tobacco/nicotine status: never used tobacco/nicotine Substance/Drug Use: never Physical Exam Const: COMMON NORMALS: no acute distress, patient oriented x3 and alert HENMT: COMMON NORMALS: normocephalic and atraumatic HEAD & SCALP: normocephalic and atraumatic OTHER: Mildly erythematous posterior oropharynx. No unilateral tonsillar swelling. Uvula midline. Mild clear rhinorrhea. Eye: COMMON NORMALS: Equal, round and reactive pupils present, EOMs intact bilaterally and no scleral icterus PUPIL: Yes Equal, round and reactive pupils present Resp: COMMON NORMALS: normal respiratory effort (Frequent coughing. Clear breath sounds.) and No retractions Cardio: COMMON NORMALS: regular rate, regular rhythm and No murmurs present (Cardio) RATE: regular rate RHYTHM: regular rhythm GI: COMMON NORMALS: Normal to inspection, nondistended, normoactive bowel sounds present, Soft to palpation and non-tender PALPATION: Yes Soft to palpation Neuro: COMMON NORMALS: patient oriented x3 SENSORIUM/ORIENTATION: Yes alert Skin: OTHER: Very mild pinkish hue and a roughly 1 cm diameter on the medial aspect of the right ankle. No target lesion. No cellulitic changes. No embedded tick head. Course Vital Signs: Vital signs: Vital Signs Temperature 98.0 F 02/28/25 20:46 Pulse Rate 110 H 02/28/25 20:46 Respiratory Rate 16 02/28/25 20:46 Blood Pressure 141/72 02/28/25 20:46 Pulse Oximetry 97 02/28/25 20:46 Oxygen Delivery Me thod Room Air 02/28/25 20:46 MDM - General Adult Medical Decision Making In summary, patient is a well-appearing 29-year-old female seen for what appears to be upper respiratory infection likely viral etiology. We discussed at length that viral testing is available but likely would not change her clinical course or plan. She very reasonably agrees not to undergo testing at this time but will treat her symptoms with ibuprofen and Tylenol. Though we also discussed that her tick bites are very low risk for transmission of tickborne illness, she will be given a single prophylactic dose of doxycycline. She shows good understanding and agrees to the plan and will be discharged in stable condition. No radiology studies performed this visit Discharge Plan Discharge Patient Disposition: Home Clinical Impression: URI (upper respiratory infection), Tick bite Condition: Stable Prescriptions: No Action amoxicillin 500 mg tablet 500 mg PO TID 10 Days Qty: 30 0RF Discharge Orders: Discharge ED (Routine); Ordered 02/28/25 Ordered By: Leland Antunez Referrals: Jackson Boothe FNP [Primary Care Provider, [facility]] Discharge Diet: Advance as tolerated Discharge Activity: Increase activity as tolerated Patient Instructions: Upper Respiratory Infection (ED) Activity Restrictions/Additional Instructions: As we discussed, please take 600 mg ibuprofen 3 times daily with meals for your symptoms. I strongly suspect viral upper respiratory infection to be the cause and it should get better over the next few days without need for antibiotics or other specific intervention. Tylenol can be taken either with or staggered between doses of Motrin. 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
[2025-02-28] MEDS: doxycycline 100 mg Tablet PO (21:17)
[2025-02-28 21:25] VITALS: BP 117/80; PULSE 95; RESP 16; O2SAT 99
== END 2025-02-28 21:24 | disposition home or self-care (01) ==
PROVIDERS: Emergency Provider Student in an Organized Health Care Education/Training Program; PCP Nurse Practitioner Family
DX: J06.9 Acute upper respiratory infection, unspecified (principal); W57.XXXA Bitten or stung by nonvenomous insect and other nonvenomous arthropods, initial encounter
CPT/HCPCS: 99283; J9999

== ENCOUNTER → 2025-05-10 10:00 | Outpatient (BNVA) | payer MEDICAID, SELFPAY | PROVIDERS: PCP Registered Nurse; Visit Provider Nurse Practitioner Family | DX: D64.9 Anemia, unspecified (principal); N91.2 Amenorrhea, unspecified | CPT/HCPCS: 80053; 81000; 81025; 82607; 83550; 84439; 84443; 85025 ==

== ENCOUNTER 2025-05-16 17:03 | Outpatient (CLI) | payer MEDICAID, SELFPAY ==
--- NOTE | 2025-05-16 16:45 | US_ITS ---
WS: [id number] US pelvic complete* [id number] HISTORY: R10.2 - Pelvic and perineal pain COMPARISON: None available. Uterus: 9.1 cm x 4.8 cm x 4.7 cm. Uterus is very slightly enlarged and anteverted. Endometrium: 1.4 cm. Mildly thickened endometrium. No heterogeneity. No mass or increased vascularity. Right ovary: 3.1 cm x 3.1 cm x 2.3 cm. Normal size and vascularity, no cystic or solid masses. Left ovary: 2.5 cm x 2.2 cm x 1.8 cm. Normal size and vascularity, no cystic or solid masses. Small amount of free fluid in the pelvis. US/US pelvic complete* [id number] IMPRESSION: 1. Mild uterine enlargement. No mass or fibroid. 2. Normal endometrium. 3. Small amount of free fluid in the pelvis is physiologic. 4. No adnexal masses. Normal ovaries.
== END 2025-05-16 17:04 | disposition home or self-care (01) ==
LOC: RAD 17:05
PROVIDERS: PCP Nurse Practitioner Family; Visit Provider Nurse Practitioner Family
DX: R10.2 Pelvic and perineal pain (principal)
CPT/HCPCS: 76856

== ENCOUNTER → 2025-06-01 09:25 | Outpatient (BNVA) | payer MEDICAID, SELFPAY | PROVIDERS: PCP Nurse Practitioner Family; Visit Provider Nurse Practitioner Family | DX: N92.1 Excessive and frequent menstruation with irregular cycle (principal); D64.9 Anemia, unspecified | CPT/HCPCS: 82607; 83550; 85025 ==

== ENCOUNTER 2025-07-26 11:10 | Emergency (ER) | payer MEDICAID, SELFPAY ==
[2025-07-26 11:19] VITALS: BP 109/60; PULSE 62; TEMP 36.7; O2SAT 100; BMI 29.0
--- NOTE | 2025-07-26 11:46 | ED_ITS ---
HPI - Ear Problem General: Chief complaint: Ear Stated complaint: L ear pain, ARDON, nausea Time Seen by Provider: 07/26/25 11:44 History of Present Illness: Healthy 30-year-old female presents emergency room with left ear pain. This started yesterday. No change in hearing. No recent cold symptoms. No fevers. No headache. Related Data Previous Rx's ?Medication ?Instructions ?Recorded ferrous sulfate 325 mg (65 mg 325 mg PO BID #60 tabs 0 06/07/25 iron) tablet,delayed release amoxicillin 875 mg-potassium 1 tab PO BID 7 days #14 t abs 07/26/25 clavulanate 125 mg tablet ciprofloxacin 0.3 %-dexamethasone 4 drp otic (ear) BID 7 days #7.5 mL 07/26/25 0.1 % ear drops,suspension Allergies Allergy/AdvReac Type Severity Reaction Status Date / Time bee venom protein (honey bee) Allergy Unknown Verified 07/26/25 11:24 morphine Allergy Unknown Verified 07/26/25 11:24 Review of Systems Narrative: Constitutional symptoms: Negative except as documented in HPI. Skin symptoms: Negative except as documented in HPI. Eye symptoms: Negative except as documented in HPI. ENMT symptoms: Negative except as documented in HPI. Respiratory symptoms: Negative except as documented in HPI. Cardiovascular symptoms: Negative except as documented in HPI. Gastrointestinal symptoms: Negative except as documented in HPI. Genitourinary symptoms: Negative except as documented in HPI. Musculoskeletal symptoms: Negative except as documented in HPI. Neurologic symptoms: Negative except as documented in HPI. Psychiatric symptoms: Negative except as documented in HPI. Endocrine symptoms: Negative except as documented in HPI. PFS ED PFSH: Medical History (Updated 07/26/25 @ 11:47 by Cecile Leonard MD) Hx of chlamydia infection No pertinent past medical history Denies diabetes, asthma, hypertension, seizures, DVT/PE Depression Diagnosed when she was 8-year-old. Not currently on any medication. Last used medication in 2014. Does not see a therapist. Surgical History (Updated 07/04/25 @ 11:50 by Cedric Chapa MD) History of bilateral tubal ligation (11/27/22) Performed at the same time as her with Dr. Medina.; Pathology benign Status post repeat low transverse section (~11/27/22) Repeat section with tubal ligation performed by Dr. Medina. History of cystoscopy 2014 cystoscopy with right retrograde ureteropyelogram and right ureteral stone extraction x2 performed by Dr. Sheets History of section X 3 2013--primary low transverse delivery-Dr. Baron 2014--repeat low transverse delivery-Dr. Gustafson at [facility] [place] 01/11/2021--schedule repeat low transverse delivery at 39 weeks-dense additions of bladder onto the uterus. By Dr. Gustafson at [facility] [place] Hx of tonsillectomy And adenoidectomy at the age of 6 Family History Father Hypercholesteremia Hypertension Heart disease Grandmother Heart disease maternal Hypercholesteremia Maternal Hypertension maternal Diabetes Maternal Mother Hypercholesteremia Sister Thyroid disease Other Hyperlipidemia Denies family history of Colon cancer Ovarian cancer Breast cancer Uterine cancer Stroke Social History Smoking and tobacco/nicotine status: never used tobacco/nicotine Substance/Drug Use: never Physical Exam Narrative: EXAM NARRATIVE: General: Alert, no acute distress. Skin: warm and dry Head: Normocephalic Neck: Trachea midline Eye: Extraocular movements are intact. Ears, nose, mouth and throat: Oral mucosa moist. Left TM is erythematous and bulging. Canal is tender. Respiratory: Respirations are non-labored Musculoskeletal: Normal ROM Gastrointestinal: Abdomen does not appear distended Neurological: Alert and oriented, No focal neurological deficit observed. Psychiatric: Cooperative, appropriate mood & affect. Course Vital Signs: Vital signs: Vital Signs Temperature 98.1 F 07/26/25 11:19 Pulse Rate 62 07/26/25 11:19 Blood Pressure 109/60 07/26/25 11:19 Pulse Oximetry 100 07/26/25 11:19 Oxygen Delivery Me thod Room Air 07/26/25 11:19 MDM - Ear Medical Decision Making Medical decision making: Differential diagnosis including but not limited to and based on the above HPI, review of systems and physical exam: This appears to be a fairly straightforward case of otitis media. No studies or imaging are needed. I am going to start her on antibiotics. I reviewed the patient's medical record. Assessment and plan: Otitis media - Discharged home - Discussed plan with patient. Answered any questions. - Evaluation and treatment of this problem were appropriate in the emergency setting. No radiology studies performed this visit Discharge Plan Discharge Patient Disposition: Home Clinical Impression: Otitis media Condition: Stable Prescriptions: New amoxicillin-pot clavulanate 875-125 mg tablet 1 tab PO BID 7 Days Qty: 14 0RF ciprofloxacin-dexamethasone 0.3-0.1 % drops,suspension 4 drp otic (ear) BID 7 Days Qty: 7.5 0RF No Action ferrous sulfate 325 mg (65 mg iron) tablet,delayed release (DR/EC) 325 mg PO BID Qty: 60 0RF Discharge Orders: Discharge ED (Routine); Ordered 07/26/25 Ordered By: Cecile Leonard Referrals: Brooklynn Sainz FNP [Primary Care Provider, Family Practice] Discharge Diet: Usual diet Discharge Activity: Increase activity as tolerated Patient Instructions: Ear Infection (ED), Opioid Safety, Pain Management, Patient Portal & Erasmo Instructions Activity Restrictions/Additional Instructions: Thank you for choosing [facility] for your healthcare needs today. You have been screened and evaluated and felt safe for discharge. Health conditions do change or evolve sometimes and as such it is important that you follow up with your Primary Doctor to be re checked, 3-5 days is a general good time frame for follow up. 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
[2025-07-26 11:56] VITALS: BP 109/83; PULSE 60; O2SAT 100
== END 2025-07-26 11:57 | disposition home or self-care (01) ==
PROVIDERS: Emergency Provider Emergency Medicine; PCP Nurse Practitioner Family
DX: H66.92 Otitis media, unspecified, left ear (principal)
CPT/HCPCS: 99283

== ENCOUNTER → 2025-08-03 11:00 | Outpatient (BNVA) | payer MEDICAID, SELFPAY | PROVIDERS: PCP Nurse Practitioner Family; Visit Provider Obstetrics & Gynecology | DX: Z01.419 Encounter for gynecological examination (general) (routine) without abnormal findings (principal) | CPT/HCPCS: 87624 ==

== ENCOUNTER 2025-10-16 13:12 | Emergency (ER) | payer MEDICAID, SELFPAY ==
[2025-10-16 13:20] VITALS: BP 112/71; PULSE 83; TEMP 37.1; O2SAT 99
[2025-10-16 14:24] VITALS: BP 118/70; PULSE 78; RESP 16; O2SAT 99
--- NOTE | 2025-10-16 14:28 | CTR_ITS ---
PROCEDURE INFORMATION: Exam: CT Head Without Contrast Exam date and time: 10/16/2025 2:40 PM Age: 30 years old Clinical indication: Injury or trauma; Fall; Blunt trauma (contusions or hematomas); Without loss of consciousness; Dizziness TECHNIQUE: Imaging protocol: Computed tomography of the head without contrast. Radiation optimization: All CT scans at this facility use at least one of these dose optimization techniques: automated exposure control; mA and/or kV adjustment per patient size (includes targeted exams where dose is matched to clinical indication); or iterative reconstruction. COMPARISON: No relevant prior studies available. RADIATION DOSE METRICS: Total DLP (mGy-cm): 947.68 FINDINGS: Brain: Normal. No hemorrhage. Unremarkable white matter. No mass effect. Cerebral ventricles: No ventriculomegaly. Paranasal sinuses: Visualized sinuses are unremarkable. No fluid levels. Mastoid air cells: Visualized mastoid air cells are well aerated. Bones: Unremarkable. No acute fracture. Soft tissues: Unremarkable. CT/CT head wo con* [id number] IMPRESSION: No acute intracranial abnormality.
--- NOTE | 2025-10-16 14:36 | ED_ITS ---
HPI - Head Injury General: Chief complaint: Head Injury Stated complaint: fell hit head Time Seen by Provider: 10/16/25 14:27 Source: patient Mode of arrival: ambulatory Limitations: no limitations History of Present Illness: 30-year-old female states that she had s lipped on concrete fell backwards and hit the back of her head roughly 2 hours ago. States since then she has been having some dizziness along with headaches. She denies any loss of consciousness she rates her headache currently a 5 out of 10 she had some mild nausea denies any vomiting. Related Data Home Medications ?Medication ?Instructions ?Recorded ?Confirmed amoxicillin 875 mg-potassium 1 tab PO BID 08/03/25 clavulanate 125 mg tablet ccaclfct-[id number]-otqiwljt 3.5 1 drp ophthalmic (eye) Q12H 08/03/25 08/03/25 mg/mL-10,000 unit/mL-0.1% eye drops Previous Rx's ?Medication ?Instructions ?Recorded ferrous sulfate 325 mg (65 mg 325 mg PO BID #60 tabs 0 06/07/25 iron) tablet,delayed release Allergies Allergy/AdvReac Type Severity Reaction Status Date / Time bee venom protein (honey bee) Allergy Unknown Verified 10/16/25 13:25 morphine Allergy Unknown Verified 10/16/25 13:25 Review of Systems Neuro: Reports: headache(s) [facility] ED PFSH: Medical History Hx of chlamydia infection No pertinent past medical history Denies diabetes, asthma, hypertension, seizures, DVT/PE Depression Diagnosed when she was 8-year-old. Not currently on any medication. Last used medication in 2014. Does not see a therapist. Surgical History History of bilateral tubal ligation (11/27/22) Performed at the same time as her with Dr. Medina.; Pathology benign Status post repeat low transverse section (~11/27/22) Repeat section with tubal ligation performed by Dr. Medina. History of cystoscopy 2014 cystoscopy with right retrograde ureteropyelogram and right ureteral stone extraction x2 performed by Dr. Sheets History of section X 3 2013--primary low transverse delivery-Dr. Baron 2014--repeat low transverse delivery-Dr. Gustafson at [facility] [place] 01/11/2021--schedule repeat low transverse delivery at 39 weeks-dense additions of bladder onto the uterus. By Dr. Gustafson at [facility] [place] Hx of tonsillectomy And adenoidectomy at the age of 6 Family History Father Hypercholesteremia Hypertension Heart disease Grandmother Heart disease maternal Hypercholesteremia Maternal Hypertension maternal Diabetes Maternal Mother Hypercholesteremia Sister Thyroid disease Other Hyperlipidemia Denies family history of Colon cancer Ovarian cancer Breast cancer Uterine cancer Stroke Social History Smoking and tobacco/nicotine status: never used tobacco/nicotine Substance/Drug Use: never Physical Exam Const: COMMON NORMALS: patient oriented x3 HENMT: COMMON NORMALS: normocephalic HEAD & SCALP: normocephalic OTHER: Hematoma to posterior scalp. Eye: COMMON NORMALS: Equal, round and reactive pupils present and EOMs intact bilaterally PUPIL: Yes Equal, round and reactive pupils present Neck/C-Spine: COMMON NORMALS: full ROM and supple OTHER: No midline cervical tenderness Chest: COMMONS NORMALS: normal inspection of the chest and normal palpation of entire chest wall Resp: COMMON NORMALS: normal respiratory effort Cardio: COMMON NORMALS: regular rate RATE: regular rate Extremity: COMMON NORMALS: normal to inspection and full ROM Neuro: COMMON NORMALS: patient oriented x3, moves all extremities and no focal motor deficits Psych: COMMON NORMALS: mental status grossly normal, Normal thought process present and cooperative THOUGHT PROCESS: Normal thought process present Skin: COMMON NORMALS: no rashes or lesions noted and no wounds GENERAL SKIN EXAM: no rashes or lesions noted Course Vital Signs: Vital signs: Vital Signs Temperature 98.8 F 10/16/25 13:20 Pulse Rate 78 10/16/25 14:24 Respiratory Rate 16 10/16/25 14:24 Blood Pressure 118/70 10/16/25 14:24 Pulse Oximetry 99 10/16/25 14:24 Oxygen Delivery Me thod Room Air 10/16/25 14:24 MDM - Head Injury Medcial Decision Making Patient presents here after closed head injury differential includes concussion, intracerebral hemorrhage, skull fracture. Patient CT of her head here showed no acute abnormalities she has been well-appearing here vitals been stable she has no neck pain or no other injuries she is stable for discharge follow-up with PCP return if worsening. Medical Records I reviewed the patient's medical records. Lab Data I reviewed the patient's lab results. Radiology Impressions Head CT 10/16/25 14:28 IMPRESSION: No acute intracranial abnormality. All radiology interpretation(s) finalized by discharge Discharge Plan Discharge Patient Disposition: Home Clinical Impression: Closed head injury Condition: Stable Prescriptions: No Action ferrous sulfate 325 mg (65 mg iron) tablet,delayed release (DR/EC) 325 mg PO BID Qty: 60 0RF amoxicillin-pot clavulanate 875-125 mg tablet 1 tab PO BID neomycin-polymyxin B-dexameth 3.5mg/mL-10,000 unit/mL-0.1 % drops,suspension 1 drp ophthalmic (eye) Q12H Discharge Orders: Discharge ED (Routine); Ordered 10/16/25 Ordered By: Kristian Mccall Referrals: Brooklynn Sainz FNP [Primary Care Provider, Family Practice] - 4-7 days Discharge Diet: Advance as tolerated Discharge Activity: Resume usual activity Patient Instructions: Head Injury (ED) Print Language: Lithuanian Coding Level of Care Code ED [employer] 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
== END 2025-10-16 15:20 | disposition home or self-care (01) ==
PROVIDERS: Emergency Provider Emergency Medicine; PCP Nurse Practitioner Family
DX: S09.8XXA Other specified injuries of head, initial encounter (principal); W01.0XXA Fall on same level from slipping, tripping and stumbling without subsequent striking against object, initial encounter
CPT/HCPCS: 70450; 99284